=== PATIENT | female | born 1955 | race Caucasian/White ===

== ENCOUNTER 2016-08-20 17:52 | Emergency (ER) | payer MEDICARE, OTHER ==
[~2016-08-20] VITALS: Ht 172.7 cm; Wt 52.6 kg
[~2016-08-20 17:52] MED LIST: CIPRO500 MG PO; DILAUDID1 MG/ML EPIDURAL; TYLENOL325 MG PO
[2016-08-20] MEDS ORDERED: OMEPRAZOLE20 MG PO (19:35)
== END 2016-08-20 19:51 | disposition home or self-care (01) ==
LOC: ED 17:52
DX: R10.12 Left upper quadrant pain (principal); Z91.030 Bee allergy status; Z88.0 Allergy status to penicillin; Z79.899 Other long term (current) drug therapy
CPT/HCPCS: 71010; 80053; 81001; 83690; 85025; 96374; 99283; J1170

== ENCOUNTER 2016-09-23 22:12 | Emergency (ER) | payer MEDICARE, OTHER ==
[~2016-09-23] VITALS: Ht 172.7 cm; Wt 54.0 kg
[~2016-09-23 22:12] MED LIST changes: +OMEPRAZOLE20 MG PO
[2016-09-23] MEDS ORDERED: HYDROMORPHONE HC8 MG PO (22:23)
[2016-09-23] MEDS ORDERED: HYDROCHLOROTHIA25 MG PO (22:24)
[2016-09-23] MEDS ORDERED: DILAUDID1 MG/ML PO (22:27)
[2016-09-23] MEDS ORDERED: CYCLOBENZAPRINE10 MG PO (22:28)
[2016-09-23] MEDS ORDERED: ZOFRAN ODT4 MG PO (23:04)
== END 2016-09-23 23:20 | disposition home or self-care (01) ==
LOC: ED 22:12
DX: R10.12 Left upper quadrant pain (principal); R11.0 Nausea; F17.200 Nicotine dependence, unspecified, uncomplicated; Z85.07 Personal history of malignant neoplasm of pancreas; Z88.0 Allergy status to penicillin; Z91.038 Other insect allergy status; Z79.899 Other long term (current) drug therapy
CPT/HCPCS: 99283

== ENCOUNTER 2016-09-27 02:51 | Emergency (ER) | payer MEDICARE, OTHER ==
[~2016-09-27] VITALS: Ht 172.7 cm; Wt 54.0 kg
[~2016-09-27 02:51] MED LIST changes: +CYCLOBENZAPRINE10 MG PO; +DILAUDID1 MG/ML PO; +HYDROCHLOROTHIA25 MG PO; +HYDROMORPHONE HC8 MG PO; +ZOFRAN ODT4 MG PO
[2016-09-27] MEDS ORDERED: HYDROCODON-ACE1 EA10 PO (03:05)
[2016-09-27] MEDS ORDERED: DILAUDID2 MG PO (04:13)
--- NOTE | 2016-09-27 13:56 | EKG ---
[facility] [address] [facility] [place], [place] [address] Signed Normal sinus rhythm Biatrial enlargement Right axis deviation Incomplete right bundle branch block Possible Anteroseptal infarct , age undetermined Abnormal ECG No previous ECGs available Confirmed by DAVIS HAHN MD ([id number]) on 09/27/2016 1:55:49 PM Electronically Signed By: DAVIS HAHN MD 09/27/16 1356 PATIENT NAME: ARTSAILAJALEFTY Electrocardiogram DATE OF : 51 PHYSICIAN: DAVIS HAHN MD REPORT #: [id number] REPORT IS CONFIDENTIAL AND NOT TO BE RELEASED WITHOUT AUTHORIZATION
== END 2016-09-27 04:57 | disposition home or self-care (01) ==
LOC: ED 02:51
DX: C25.9 Malignant neoplasm of pancreas, unspecified (principal); F17.200 Nicotine dependence, unspecified, uncomplicated; Z88.0 Allergy status to penicillin; Z91.030 Bee allergy status; Z79.899 Other long term (current) drug therapy; Z79.891 Long term (current) use of opiate analgesic
CPT/HCPCS: 93005; 93010; 96361; 96374; 96375; 99283; J1170; J2405; J7030

== ENCOUNTER 2018-02-07 17:02 | Emergency (ER) | payer MEDICARE, OTHER ==
[~2018-02-07] VITALS: Ht 172.7 cm; Wt 54.0 kg
[~2018-02-07 17:02] MED LIST changes: +DILAUDID2 MG PO; +HYDROCODON-ACE1 EA10 PO; +PREDNISONE20 MG PO
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
--- NOTE | 2018-02-09 07:51 | EKG ---
[facility] [address] [place] [address] Signed Wide QRS tachycardia Right superior axis deviation Nonspecific intraventricular block Inferior infarct , age undetermined Abnormal ECG When compared with ECG of 27-SEP-2016 02:57, Wide QRS tachycardia has replaced Sinus rhythm Vent. rate has increased BY 60 BPM Confirmed by WHIT MICHAELS MD ([id number]) on 02/09/2018 7:51:22 AM Electronically Signed By: WHIT MICHAELS MD 02/09/18 0751 PATIENT NAME: LEFTY SMITH JOANNE Electrocardiogram DATE OF : 51 PHYSICIAN: WHIT MICHAELS MD REPORT #: [id number] REPORT IS CONFIDENTIAL AND NOT TO BE RELEASED WITHOUT AUTHORIZATION
== END 2018-02-07 21:17 | disposition home or self-care (01) ==
LOC: ED 17:02
DX: J20.9 Acute bronchitis, unspecified (principal); Z86.19 Personal history of other infectious and parasitic diseases; Z87.891 Personal history of nicotine dependence; Z91.038 Other insect allergy status; Z88.0 Allergy status to penicillin; Z79.899 Other long term (current) drug therapy
CPT/HCPCS: 71046; 80053; 85025; 87502; 93005; 93010; 94640; 96360; 99284-25; J7030

== ENCOUNTER 2018-08-04 17:28 | Emergency (ER) | payer MEDICARE, OTHER ==
[~2018-08-04] VITALS: Ht 172.7 cm; Wt 54.0 kg
--- OUTSIDE RECORDS SUMMARY | 2018-08-04 17:30 | XMS ---
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 DO NOT GIVE NARCOTICS UNTIL READING THE FOLLOWING. PATIENT HAS DILAUDID IMPLANTED PAIN PUMP AND ORAL DILAUDID FOR CHRONIC BACK/NECK PAIN THROUGH [facility] [phone] . THEY ARE NOT GIVING PATIENTS NARCOTICS [...] SHE WAS SEEN BY MENTAL HEALTH . E.Quang VISIT COUNT (12 MO.) 4 [facility] TOTAL 4 NOTE: Visits indicate total known visits. ED/UCC VISIT TRACKING (12 MO.) 08/04/2018 17:29 [facility] TYPE: Emergency COMPLAINT: - MEDICAL CLEARANCE 02/07/2018 17:02 [facility] [place] TYPE: Emergency COMPLAINT: - FLU SYMPTOMS/VOMITING DIAGNOSES: - Other insect allergy status - Cough - Acute bronchitis, unspecified - Personal history of nicotine dependence - Allergy status to penicillin - Personal history of other infectious and parasitic diseases - Other intermediate teacher (current) drug therapy 12/22/2017 16:20 [facility] [place] TYPE: Emergency COMPLAINT: - BILAT HIP PAIN/INJURY DIAGNOSES: - Allergy status to penicillin - Nicotine dependence, unspecified, uncomplicated - intermodal customer service (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
== END 2018-08-04 23:14 | disposition short-term general hospital (02) ==
LOC: ED 17:28
DX: R10.13 Epigastric pain (principal); Z00.8 Encounter for other general examination; Z87.891 Personal history of nicotine dependence; Z91.030 Bee allergy status; Z88.0 Allergy status to penicillin
CPT/HCPCS: 80053; 80176; 81001; 83690; 84443; 84703; 85025; 99284; G0480

== ENCOUNTER 2018-10-07 16:11 | Observation (INO) | payer MEDICARE, OTHER ==
[~2018-10-07] VITALS: Ht 172.7 cm; Wt 55.5 kg
--- NOTE | 2018-10-07 20:34 | NUR ---
PT ARRIVED TO THE FLOOR VIA STRETCHER AND WALKED TO THE BED SBA. RR IS EVEN AND NONLABORED. VS TAKEN AND ENTERED. ASSISTED PT TO THE RESTROOM AND BACK TO BED. CALL LIGHT IS CLOSE, STARTING ADMISSION PROCESS.
--- NOTE | 2018-10-07 21:15 | NUR ---
ASSESSMENT DONE. pt REPORTING 8/10 PAIN "HEADACHE" NO REQUESTS AT THIS TIME. RAFAEL KOENIG IN ROOM FINISHING ADMIT PAPERWORK.
--- NOTE | 2018-10-07 22:30 | NUR ---
IN ROOM TO GIVE MEDS (SEE MAR). pt REPORTED CHEST PAIN. "IT FEELS LIKE SOMETHING IS SITTING ON MY CHEST" HEADACHE STILL PRESENT. NO OTHER PAIN REPORTED. VITALS TAKEN. CHARGE NURSE NOTIFED. pt REPORTED NEW PAIN IN JAW. CHARGE NURSE UPDATED. RT IN ROOM TO DO EKG. LAB INTO DRAW BLOOD. pt REPORTED THAT SYMPTOMS WERE NOT GETTING WORSE. EDUCATED TO CALL IF ANYTHING CHANGED. PLEASANT. CALL LIGHT WITHIN REACH.
--- NOTE | 2018-10-07 22:40 | NUR ---
SPOKE WITH DR PINA ABOUT PT'S CHEST PAIN, TORBC.
--- NOTE | 2018-10-07 22:58 | EKG ---
[facility] [address] [facility] [place], [place] [address] Signed Normal sinus rhythm Possible Left atrial enlargement Right superior axis deviation Incomplete right bundle branch block Cannot rule out Anteroseptal infarct (cited on or before 27-SEP-2016) Abnormal ECG When compared with ECG of 07-OCT-2018 16:17, (Unconfirmed) T wave amplitude has decreased in Anterior leads Confirmed by WOOD PINA DO ([id number]) on 10/07/2018 10:58:46 PM Electronically Signed By: WOOD PINA DO 10/07/18 2258 PATIENT NAME: LEFTY SMITH Electrocardiogram DATE OF : 51 PHYSICIAN: WOOD PINA DO REPORT #: [id number] REPORT IS CONFIDENTIAL AND NOT TO BE RELEASED WITHOUT AUTHORIZATION
--- NOTE | 2018-10-07 23:00 | NUR ---
ROUNDED ON pt. REPORTED PAIN DECREASED, "I JUST BARELY FEEL A LITTLE PRESSURE IN MY CHEST" WARM BLANKET PROVIDED. NO OTHER REQUESTS AT THIS TIME. CALL LIGHT WITHIN REACH.
--- NOTE | 2018-10-07 23:00 | EKG ---
[facility] [address] [facility] [place] [address] Signed Normal sinus rhythm Biatrial enlargement Right superior axis deviation Pulmonary disease pattern Septal infarct , age undetermined Abnormal ECG When compared with ECG of 07-FEB-2018 17:29, Sinus rhythm has replaced Wide QRS tachycardia Vent. rate has decreased BY 50 BPM Confirmed by WOOD PINA DO ([id number]) on 10/07/2018 11:00:11 PM Electronically Signed By: WOOD PINA DO 10/07/18 2300 PATIENT NAME: LEFTY SMITH Electrocardiogram DATE OF : 51 PHYSICIAN: WOOD PINA DO REPORT #: [id number] REPORT IS CONFIDENTIAL AND NOT TO BE RELEASED WITHOUT AUTHORIZATION
--- NOTE | 2018-10-08 01:24 | NUR ---
ROUNDED ON pt. RESTING WITH EYES CLOSED, RESPIRATIONS REGULAR AND UNLABORED. CALL LIGHT WITHIN REACH TELE #5 HR 73, SR.
--- NOTE | 2018-10-08 02:30 | NUR ---
ASSESSMENT DONE. VITALS AND I&O RECORDED. pt UP TO VOID. CLEAN CATCH URINE SAMPLE SENT TO LAB. pt REQUESTED PAIN MEDS, GIVEN (SEE MAR). 08/18 HEADACHE. DENIES THE "PRESSURE" FEELING IN CHEST. CALL LIGHT WITHIN REACH.
--- NOTE | 2018-10-08 03:57 | NUR ---
ROUNDED ON pt. RESTING WITH EYES CLOSED, RESPIRATIONS REGULAR AND UNLABORED. CALL LIGHT WITHIN REACH.
[2018-10-08] MEDS ORDERED: QUETIAPINE FUM100 MG PO (05:20)
[2018-10-08] MEDS ORDERED: LATUDA120 MG PO (05:21)
[2018-10-08] MEDS ORDERED: BENADRYL25 MG PO (05:26)
[2018-10-08] MEDS ORDERED: TYLENOL325 MG PO (05:27)
[2018-10-08] MEDS ORDERED: LEXAPRO10 MG PO (05:28)
[2018-10-08] MEDS ORDERED: CATAPRES0.1 MG PO (05:32)
--- NOTE | 2018-10-08 05:43 | NUR ---
ROUNDED ON pt. VITALS AND I&O RECORDED. OFFERED MENU. LAB INTO DRAW. pt REPORTED 7/10 PAIN, PRN GIVEN (SEE MAR). CALL LIGHT WITHIN REACH.
--- NOTE | 2018-10-08 05:46 | NUR ---
pt DID NOT SLEEP MUCH. HEADACHE PAIN RATING DOWN TO 7/10. PRN PAIN MEDS X4. TELE 5 SR. ONE EPISODE OF CHEST PAIN, EKG AND LABS. REPORTS PAIN IS GONE. SBA. IV SL. ALERT AND ORIENTED.
--- NOTE | 2018-10-08 07:33 | NUR ---
RECIEVED BEDSIDE REPORT FROM RAFAEL MUÑIZ. PT IS IN BED, AWAKE. PT STATES SHE SHILL HAS PAIN ON THE RIGHT SIDE OF HER HEAD. NO NAUSEA. VISION IS IMPROVED. BLOOD PRESSURE IS WITHIN NORMAL.
--- NOTE | 2018-10-08 09:00 | NUR ---
SPOKE WITH PATIENT IN ROOM. PATIENT LIVES IN HOUSE WITH STAIRS WITH ROOMMATES. SHE HAS A FIRST FLOOR ROOM. SHE HAS NO ISSUES WITH STAIRS OR AMBULATION. SHE HAS PCP IN [place], SHE WOULD LIKE TO HAVE LOCAL PCP. SHE STATES SHE HAS SIGNED A KALLIE AND REQUEST FOR PCP AT [facility] 2 MONTHS AGO, HASN'T HEARD BACK. SHE WOULD LIKE HELP FROM CASE MANAGEMENT AFTER DISCARGE IN FINDING ONE. PATIENT IS UNDER PAIN CONTRACT WITH DR QURESHI OF [facility]. SHE STATES SHE CAN DRIVE, BUT DOES NOT OWN A CAR. SHE STATES SHE USES [employer]. 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 QUESTIONS ANSWERED. PATIENT FEELS SAFE TO RETURN HOME AT DISCHARGE.
--- NOTE | 2018-10-08 09:10 | NUR ---
HELD AM LISINOPRIL PER VERBAL ORDER FROM DR PINA. PT STATES HER HEADACHE IS STILL THERE, BUT SHE IS FEELING BETTER. SHE IS ANXIOUS TO GO HOME.
[2018-10-08] MEDS ORDERED: EPIN0.3P INJ (09:50)
--- NOTE | 2018-10-08 09:51 | NUR ---
MEDICATION RECONCILIATION COMPLETED.
== END 2018-10-08 11:30 | disposition home or self-care (01) ==
LOC: ED 16:11 → MS 19:52
PROVIDERS: ADMIT Student in an Organized Health Care Education/Training Program
DX: I16.1 Hypertensive emergency (principal); I10 Essential (primary) hypertension; G43.809 Other migraine, not intractable, without status migrainosus; F39 Unspecified mood [affective] disorder; M54.2 Cervicalgia; G89.29 Other chronic pain; S12.9XXS Fracture of neck, unspecified, sequela; Z79.899 Other long term (current) drug therapy; Z88.0 Allergy status to penicillin; Z79.891 Long term (current) use of opiate analgesic
CPT/HCPCS: 36415; 62270; 70450; 80048; 80053; 80061; 81001; 82945; 83036; 84157; 84484; 85025; 85032; 89051; 93005; 93010; 96375; 96376; 99285-25; G0378; J0780; J1200; J1885; J2405; J3010

== ENCOUNTER 2018-12-09 14:35 | Emergency (ER) | payer MEDICARE, OTHER ==
[~2018-12-09] VITALS: Ht 172.7 cm; Wt 65.9 kg
[~2018-12-09 14:35] MED LIST changes: +BENADRYL25 MG PO; +CATAPRES0.1 MG PO; +EPIN0.3P INJ; +LATUDA120 MG PO; +LEXAPRO10 MG PO; +QUETIAPINE FUM100 MG PO
--- NOTE | 2018-12-11 06:17 | EKG ---
[facility] [address] [facility] [place] [address] Signed Normal sinus rhythm Incomplete right bundle branch block Left posterior fascicular block Possible Inferior infarct , age undetermined Abnormal ECG When compared with ECG of 07-OCT-2018 22:44, Left posterior fascicular block is now present Minimal criteria for Anteroseptal infarct are no longer present Borderline criteria for Inferior infarct are now present Confirmed by DAVIS HAHN MD ([id number]) on 12/11/2018 6:17:04 AM Electronically Signed By: DAVIS HAHN MD 12/11/18 0617 PATIENT NAME: LEFTY SMITH Electrocardiogram DATE OF : 51 PHYSICIAN: DAVIS HAHN MD REPORT #: [id number] REPORT IS CONFIDENTIAL AND NOT TO BE RELEASED WITHOUT AUTHORIZATION
== END 2018-12-09 16:54 | disposition short-term general hospital (02) ==
LOC: ED 14:35
DX: I63.9 Cerebral infarction, unspecified (principal); F17.200 Nicotine dependence, unspecified, uncomplicated; Z88.0 Allergy status to penicillin; Z91.030 Bee allergy status
CPT/HCPCS: 70450; 71045; 80053; 84484; 85025; 85610; 85730; 93005; 93010; 96374; 96375; 99285-25; J2997; J3010; Q3014

== ENCOUNTER 2019-01-22 14:10 | Emergency (ER) | payer MEDICARE, OTHER ==
[~2019-01-22] VITALS: Ht 172.7 cm; Wt 65.9 kg
--- OUTSIDE RECORDS SUMMARY | ~2019-01-22 | XMS | Encounter Summary ---
Demographics + + + | Address | [address] | | | [place] [address] | + + + | Home Phone | | + + + | Preferred Language | Unknown | + + + | Marital Status | | + + + | Judaism Affiliation | Unknown | + + + | Race | Unknown | + + + | Ethnic Group | Unknown | + + + Author + + + | Author | [facility] | | | and [place] | + + + | Organization | [facility] | | | and [place] | + + + | Address | Unknown | + + + | Phone | Unavailable | + + + Support + + +---------+ + | Name | Relationship | Address | Phone | + + +---------+ + | [facility] | ECON | Unknown | | | Residential | | | | | Treatment Home | | | | + + +---------+ + Care Team Providers + +------+ + | Care Change Control Specialist Name | Role | Phone | + +------+ + | No, Physician | PCP | Unavailable | + +------+ + Encounter Details +--------+ + + + + | Date | Type | Department | Care Team | Description | +--------+ + + + + | 03/02/ | Hospital | [facility] | Conversion | | | 2019 | Encounter | MEDICAL CENTER | Transaction, | | | | | OUTPATIENT | Provider Unknown | | | | | [address] | [phone] | | | | | [address] | | | | | | [place] | | | | | | [address] | | | | | | [phone] | | | +--------+ + + + + Social History + +-------+ +--------+------+ | Tobacco Use | Types | Packs/Day | Years | Date | | | | | Used | | + +-------+ +--------+------+ | Unknown If Ever | | | | | | Smoked | | | | | + +-------+ +--------+------+ + + + | Sex Assigned at | Date Recorded | | | | + + + | Not on file | | + + + + + + + | Job Start Date | Occupation | Industry | + + + + | Not on file | Not on file | Not on file | + + + + + + + + | Travel History | Travel Start | Travel End | + + + + + + | No recent travel history available. | + + documented as of this encounter Last Filed Vital Signs + + + + + | Vital Sign | Reading | Time Taken | Comments | + + + + + | Blood Pressure | 143/86 | 03/02/2018 11:58 AM | | | | | PST | | + + + + + | Pulse | 68 | 03/02/2018 11:58 AM | | | | | PST | | + + + + + | Temperature | 36.1 C (97 F) | 03/02/2018 11:58 AM | | | | | PST | | + + + + + | Respiratory Rate | 16 | 03/02/2018 11:58 AM | | | | | PST | | + + + + + | Oxygen Saturation | - | - | | + + + + + | Inhaled Oxygen | - | - | | | Concentration | | | | + + + + + | Weight | - | - | | + + + + + | Height | - | - | | + + + + + | Body Mass Index | - | - | | + + + + + documented in this encounter Medications at Time of Discharge + + + +---------+ + + | Medication | Sig | Dispensed | Refills | Start | End Date | | | | | | Date | | + + + +---------+ + + | acetaminophen | Take 325 mg by mouth | | 0 | 09/19/19 | | | (TYLENOL) 325 mg | every 6 (six) hours | | | 16 | | | tablet | as needed for Pain. | | | | | | | Sleep aid | | | | | + + + +---------+ + + | ibuprofen | Take 1 tablet by | | 0 | 01/20/20 | | | (ADVIL,MOTRIN) 600 | mouth 3 times daily | | | 18 | | | MG tablet | as needed for Pain. | | | | | + + + +---------+ + + | cyclobenzaprine | Take 10 mg by mouth | | 0 | 09/02/19 | | | (FLEXERIL) 10 mg | 3 (three) times | | | 17 | 9 | | tablet | daily as needed for | | | | | | | Muscle spasms. | | | | | + + + +---------+ + + | | | | 0 | 09/18/19 | | | HYDROcodone-acetamin | | | | 17 | 9 | | ophen (NORCO) 5-325 | | | | | | | mg per tablet | | | | | | + + + +---------+ + + | HYDROmorphone | | | 0 | 09/28/19 | | | (DILAUDID) 2 mg | | | | 17 | 9 | | tablet | | | | | | + + + +---------+ + + documented as of this encounter Plan of Treatment Not on filedocumented as of this encounter Visit Diagnoses Not on filedocumented in this encounter"
--- OUTSIDE RECORDS SUMMARY | ~2019-01-22 | XMS | Encounter Summary ---
Demographics + + + | Address | [address] | | | [place] [address] | + + + | Home Phone | | + + + | Preferred Language | Unknown | + + + | Marital Status | | + + + | Gnosticist Affiliation | Unknown | + + + [...] Team Providers + +------+ + | Care Progressive Care Manager Name | Role | Phone | + +------+ + | Ben Tirado MD | PCP | | + +------+ + Encounter Details +--------+ + + + + | Date | Type | Department | Care Team | Description | +--------+ + + + + | 10/29/ | Orders Only | [facility] | Conversion | | | 2017 | | CONVERSION [address] | Transaction, | | | | | [address] | Provider Unknown | | | | | [place], [place] | [phone] | | | | | [phone] | | | | | | [phone] | | | +--------+ + + + + Social History + +-------+ +--------+------+ | Tobacco Use | Types | Packs/Day | Years | Date | | | | | Used | | + +-------+ +--------+------+ | Never Assessed | | | | | + +-------+ [...]
--- OUTSIDE RECORDS SUMMARY | ~2019-01-22 | XMS | Encounter Summary ---
Demographics + + + | Address | [address] | | | [place] [address] | + + + | Home Phone | | + + + | Preferred Language | Unknown | + + + | Marital Status | | + + + | Church Affiliation | Unknown | + + + | Race | Unknown | + + + | Ethnic Group | Unknown | + + + Author + + + | Author | [facility] | | | and [place] | + + + | Organization | [facility] | | | and [...] Team Providers + +------+ + | Care Manager Etl Name | Role | Phone | + +------+ + | Ben Tirado MD | PCP | | + +------+ + Encounter Details +--------+ + + + + | Date | Type | Department | Care Team | Description | +--------+ + + + + | 08/10/ | Orders Only | [facility] | Conversion | | | 2016 | | CONVERSION [address] | Transaction, | | | | | [address] | Provider Unknown | | | | | [place], [place] | [phone] | | | | | [address] | | | | | | [phone] | | | +--------+ + + + [...]
--- OUTSIDE RECORDS SUMMARY | ~2019-01-22 | XMS | Encounter Summary ---
Demographics + + + | Address | [address] | | | [place] [address] | + + + | Home Phone | | + + + | Preferred Language | Unknown | + + + | Marital Status | | + + + | Mormonism Affiliation | Unknown | + + + | Race | Unknown | + + + | Ethnic Group | Unknown | + + + Author + + + | Author | [facility] | | | and [place] | + + + | Organization | [facility] | | [...] Team Providers + +------+ + | Care Contract Administration Coordinator Name | Role | Phone | + +------+ + PCP | Unavailable | + +------+ + Encounter Details +--------+ + + + + | Date | Type | Department | Care Team | Description | +--------+ + + + + | 02/11/ | Hospital | [facility] | Conversion | | | 2017 | Encounter | MEDICAL CENTER | Transaction, | | | | | OUTPATIENT | Provider Unknown | | | | | [address] | [phone] | | | | | [address] | | | | | | [place], [place] | | | | | | [address] | | | | | | [phone] | | | +--------+ + + + [...]
--- OUTSIDE RECORDS SUMMARY | ~2019-01-22 | XMS | Encounter Summary ---
Demographics + + + | Address | [address] | | | [place] [address] | + + + | Home Phone | | + + + | Preferred Language | Unknown | + + + | Marital Status | | + + + | Scientologist Affiliation | Unknown | + + + | Race | Unknown | + + + | Ethnic Group | Unknown | + + + Author + + + | Author | [facility] | | | and [place] | + + + | Organization | [facility] | | [...] Team Providers + +------+ + | Care Black Ash Burner Operator Name | Role | Phone | + +------+ + PCP | Unavailable | + +------+ + Encounter Details +--------+ + + + + | Date | Type | Department | Care Team | Description | +--------+ + + + + | 05/27/ | Hospital | [facility] | Conversion | Back pain, | | 2017 | Encounter | [address] | Transaction, | unspecified back | | | | [address] | Provider Unknown | location, | | | | [place], [place] | [phone] | unspecified back | | | | [phone] | (Fax) | pain laterality, | | | | | | unspecified | | | | | | chronicity | +--------+ + + + + Social [...] | + +--------+ + + + | CT THORACIC SPINE WO | Routin | 05/26/2016 | | Results for this | | CONTRAST | e | 9:19 AM | | procedure are in the | | | | PDT | | results section. | + +--------+ + + + documented in this encounter Results CT Thoracic Spine wo Contrast (05/26/2016 9:19 AM PDT) + + | Specimen | + + | | + + + + + | Narrative | Performed At | + + + | This is a non-reportable procedure without a radiologist report and | | | is used for image storage only | | + + + + + | Procedure Note | + + | Hemant Medley - 09/23/2018 5:08 AM PDT This is a non-reportable procedure | | without a radiologist report and isused for image storage only | + + documented in this encounter Visit Diagnoses + + | Diagnosis | + + | Back pain, unspecified back location, unspecified back pain laterality, unspecified | | chronicity | + + documented in this encounter"
--- OUTSIDE RECORDS SUMMARY | ~2019-01-22 | XMS | Encounter Summary ---
Demographics + + + | Address | [address] | | | [place] [address] | + + + | Home Phone | | + + + | Preferred Language | Unknown | + + + | Marital Status | | + + + | Advent Affiliation | Unknown | + + + | Race | Unknown | + + + | Ethnic Group | Unknown | + + + Author + + + | Author | [facility] | | | and [place] | + + + | Organization | [facility] | | | [...] Team Providers + +------+ + | Care Delivery Coordinator Name | Role | Phone | + +------+ + | No, Physician | PCP | Unavailable | + +------+ + Encounter Details +--------+ + + + + | Date | Type | Department | Care Team | Description | +--------+ + + + + | 09/01/ | Hospital | [facility] | Conversion | | | 2018 | Encounter | MEDICAL CENTER | Transaction, | | | | | OUTPATIENT | Provider Unknown | | | | | [address] | [phone] | | | | | [address] | | | | | | [place] | | | | | | [address] | | | | | | [phone] | | | +--------+ + + + [...] Note by Syeda Beverly RN at 09/01/17 2822 Author: Syeda Beverly RN Service: (none) Author Type: Registered Nurse Filed: 09/04/17 0957 Date of Service: 09/01/172358 Status: Signed Bellows Charger Assembler: Syeda Beverly RN (Registered Nurse) Received a phone call from [facility] reporting symptoms of hives the size [...]
--- OUTSIDE RECORDS SUMMARY | ~2019-01-22 | XMS | Clinical Summary ---
Demographics + + + | Address | [address] | | | [place] [address] | + + + | Home Phone | | + + + | Preferred Language | Unknown | + + + | Marital Status | | + + + | Baptist Affiliation | Unknown | + + + | Race | Unknown | + + + | Ethnic Group | Unknown | + + + Author + + + | Author | [facility] | | | and [place] | + + + | Organization | [facility] | | | [...] Team Providers + +------+ + | Care Circle Cutting Saw Operator Name | Role | Phone | + +------+ + | Ben Tirado MD | PCP | | + +------+ + Allergies + + + + + + | Active Allergy | Reactions | Severity | Noted | Comments | | | | | Date | | + + + + + + | Bee Venom | Anaphylaxis | High | 09/03/19 | | | | | | 19 | | + + + + + + | Codeine | Other (See Comments) | Medium | 09/19/19 | sensativity | | | | | 16 | | + + + + + + | Penicillins | Anaphylaxis | High | 09/19/19 | | | | | | 16 | | + + + + + + Medications + + + +---------+------+------+-------+ | Medication | Sig | Dispensed | Refills | Star | End | Statu | | | | | | t | Date | s | | | | | | Date | | | + + + +---------+------+------+-------+ | acetaminophen | Take 325 mg by mouth | | 0 | 08/1 | | Activ | | (TYLENOL) 325 mg | every 6 (six) hours | | | 0/20 | | e | | tablet | as needed for Pain. | | | 16 | | | | | Sleep aid | | | | | | + + + +---------+------+------+-------+ | albuterol 90 | Inhale 2 puffs into | | 0 | | | Activ | | mcg/puff inhaler | the lungs 2 times | | | | | e | | | daily. | | | | | | + + + +---------+------+------+-------+ | EPINEPHrine | Inject 0.3 mLs into | | 0 | 07/2 | | Activ | | auto-injector 0.3 | the muscle as needed | | | 6/20 | | e | | mg/0.3 mL injection | for Anaphylaxis. | | | 19 | | | + + + +---------+------+------+-------+ | LATUDA 120 MG | Take 1 tablet by | | 0 | 10/1 | | Activ | | tablet | mouth Daily. | | | 8/20 | | e | | | | | | 19 | | | + + + +---------+------+------+-------+ | escitalopram | Take 10 mg by mouth | | 0 | 10/1 | | Activ | | (LEXAPRO) 10 mg | Daily. | | | 8/20 | | e | | tablet | | | | 19 | | | + + + +---------+------+------+-------+ | ibuprofen | Take 1 tablet by | | 0 | 12/1 | | Activ | | (ADVIL,MOTRIN) 600 | mouth 3 times daily | | | 1/20 | | e | | MG tablet | as needed for Pain. | | | 18 | | | + + + +---------+------+------+-------+ | QUEtiapine | Take 2 tablets by | | 0 | 10/1 | | Activ | | (SEROQUEL) 100 mg | mouth nightly. | | | 4/20 | | e | | tablet | | | | 19 | | | + + + +---------+------+------+-------+ | propranolol | Take 1 tablet by | 60 | 0 | 11/0 | | Activ | | (INDERAL) 20 MG | mouth 2 times daily. | tablet | | 2/20 | | e | | tablet | | | | 19 | | | + + + +---------+------+------+-------+ | atorvaSTATin | Take 0.5 tablets by | 30 | 0 | 11/0 | | Activ | | (LIPITOR) 80 MG | mouth Daily. | tablet | | 2/20 | | e | | tablet | | | | 19 | | | + + + +---------+------+------+-------+ Active Problems + + + | Problem | Noted Date | + + + | Mixed hyperlipidemia | 12/11/2018 | + + + | Essential hypertension | 12/09/2018 | + + + | Post-traumatic osteoarthritis of right knee | 10/01/2018 | + + + | Sprain of anterior cruciate ligament of right knee | 10/01/2018 | + + + | Chronic neck pain | 09/16/2018 | + + + | Chronic hepatitis C without hepatic coma | 09/03/2018 | + + + | H/O total hysterectomy | 09/03/2018 | + + + | Tobacco abuse | 09/03/2018 | + + + | Chronic pain syndrome | 10/12/2015 | + + + | Chronic postoperative pain | 10/12/2015 | + + + | History of fusion of cervical spine | 10/12/2015 | + + + | History of fusion of cervical spine | 10/12/2015 | + + + + + | Overview: Last Assessment & Plan: | | See Discussion under chronic pain | + + + + + | Chronic pain syndrome | 10/12/2015 | + + + + + | Overview: Last Assessment & Plan: This patient has a | | intrathecal pain pump for chronic pain. She is currently on | | hydromorphone 9 mg per mL and bupivacaine at 3 mg per mL. She is | | on a continuous mode at 1.2017 mg per day of hydromorphone with | | 0.4006 mg per day bupivacaine. She has had increased pain and is | | here to request an increase in her intrathecal pain pump. She is | | also for additional refill of her hydromorphone. Her last | | prescription was filled and September 2015 and lasted for 3-4 | | months.Today we increased her settings by 13 percent. We did | | increase her to 1.3534 mg per day of her hydromorphone and 0.4511 | | mg per day for bupivacaine. We will refer her hydromorphone one | | more time. I will put her on a list for her to see Dr. Sherwood. I | | did tell her that I will not fill her hydromorphone anymore.Last | | Assessment & Plan: This patient has a intrathecal pain pump for | | chronic pain. She is currently on hydromorphone 9 mg per mL and | | bupivacaine at 3 mg per mL. She is on a continuous mode at 1.2017 | | mg per day of hydromorphone with 0.4006 mg per day bupivacaine. | | She has had increased pain and is here to request an increase in | | her intrathecal pain pump. She is also for additional refill of | | her hydromorphone. Her last prescription was filled and September | | 2015 and lasted for 3-4 months.Today we increased her settings by | | 13 percent. We did increase her to 1.3534 mg per day of her | | hydromorphone and 0.4511 mg per day for bupivacaine. We will | | refer her hydromorphone one more time. I will put her on a list | | for her to see Dr. Sherwood. I did tell her that I will not fill | | her hydromorphone anymore. | + + + + + | Chronic postoperative pain | 10/12/2015 | + + + + + | Overview: Last Assessment & Plan: | | See Discussion under chronic pain | + + Resolved Problems + + + + | Problem | Noted | Resolved | | | Date | Date | + + + + | Acute CVA (cerebrovascular accident) | 12/10/19 | | | | 19 | 9 | + + + + Encounters +--------+ + + + + | Date | Type | Specialty | Care Team | Description | +--------+ + + + + | 12/09/ | Hospital | Internal Medicine | Dale Panda | History of fusion of | | 2019 - | Encounter | | MD Amparo | cervical spine | | | | | | (Primary Dx); Acute | | 12/11/ | | | | CVA (cerebrovascular | | 2019 | | | | accident) (HCC); | | | | | | Chronic hepatitis C | | | | | | without hepatic coma | | | | | | (HCC); Chronic pain | | | | | | syndrome; Essential | | | | | | hypertension; | | | | | | Tobacco abuse; | | | | | | Chronic neck pain; | | | | | | S/P admn tPA in diff | | | | | | fac w/n last 24 hr | | | | | | bef adm to crnt fac; | | | | | | Diplopia; History | | | | | | of fusion of | | | | | | cervical spine; | | | | | | Post-traumatic | | | | | | osteoarthritis of | | | | | | right knee | +--------+ + + + + from Last 3 Months Immunizations + + + + | Name | Administration Dates | Next Due | + + + + | INFLUENZA PF 63 Y OR | 09/27/2018 | | | >,TRIVALENT (FLUAD) | | | + + + + | INFLUENZA PF | 10/16/2015 | | | QUAD(PED/ADOL/ADULT) | | | | ,PSKT or VIAL | | | + + + + | INFLUENZA TRIV | 03/26/2017 | | | W/PRES(PED/ADOL/ADUL | | | | T),MULTIDOSE | | | + + + + | INFLUENZA, | 09/27/2018 | | | UNSPECIFIED | | | | FORMULATION | | | + + + + | PNEUMOCOCCAL | 09/02/2018 | | | CONJUGATE 13-VALENT | | | | (PCV13) | | | + + + + Family History + + +------+ + | Medical History | Relation | Name | Comments | + + +------+ + | Heart disease | Father | 76 | | + + +------+ + | Hypertension | Father | 76 | | + + +------+ + | Heart disease | Mother | 90 | | + + +------+ + | Hypertension | Mother | 90 | | + + +------+ + + +------+ + + | Relation | Name | Status | Comments | + +------+ + + | Father | 76 | | | + +------+ + + | Father | 76 | | | + +------+ + + | Mother | 90 | | | + +------+ + + | Mother | 90 | | | + +------+ + + Social History + +-------+ +--------+------+ | Tobacco Use | Types | Packs/Day | Years | Date | | | | | Used | | + +-------+ +--------+------+ | Current Every Day | | | | | | Smoker | | | | | + +-------+ +--------+------+ + +---+---+---+ | Smokeless Tobacco: | | | | | Never Used | | | | + +---+---+---+ + + + | Sex Assigned at [...] recent travel history available. | + + Last Filed Vital Signs + + + + + | Vital Sign | Reading | Time Taken | Comments | + + + + + | Blood Pressure | 128/92 | 12/11/2018 11:00 AM | | | | | PDT | | + + + + + | Pulse | 64 | 12/11/2018 11:00 AM | | | | | PDT | | + + + + + | Temperature | 36.8 C (98.2 F) | 12/11/2018 12:00 PM | | | | | PDT | | + + + + + | Respiratory Rate | 18 | 12/11/2018 12:00 PM | | | | | PDT | | + + + + + | Oxygen Saturation | 96% | 12/11/2018 11:00 AM | | | | | PDT | | + + + + + | Inhaled Oxygen | - | - | | | Concentration | | | | + + + + + | Weight | 63 kg (138 lb 14.2 | 12/10/2018 8:00 PM | | | | oz) | PDT | | + + + + + | Height | 172.7 cm (5' 8") | 12/09/2018 5:15 PM | | | | | PDT | | + + + + + | Body Mass Index | 21.12 | 12/09/2018 5:15 PM | | | | | PDT | | + + + + + Plan of Treatment + + + + + | Health Maintenance | Due Date | Last Done | Comments | + + + + + | Vaccine: | | | | | Dtap/Tdap/Td (1 - | 3 | | | | Tdap) | | | | + + + + + | Colorectal Cancer | | | | | Screening | 4 | | | | (Colonoscopy) | | | | + + + + + | Vaccine: Zoster (1 | | | | | of 2) | 4 | | | + + + + + | Breast Cancer | | | | | Screening | 9 | | | + + + + + | Adult Annual | | | | | Wellness Visit | 9 | | | + + + + + | Vaccine: | | 09/02/2018 | | | Pneumococcal 65+ (2 | 0 | | | | of 2 - PPSV23) | | | | + + + + + | Vaccine: Influenza | Completed | 09/27/2018, 09/27/2018, | | | | | 03/26/2017, Additional history | | | | | exists | | + + + + + | Hepatitis C | Completed | 12/09/2018, 09/03/2018 | | | Screening | | | | + + + + + Procedures + +--------+ + + + | Procedure Name | Priori | Date/Time | Associated Diagnosis | Comments | | | ty | | | | + +--------+ + + + | PHOSPHORUS | MELANIE | 12/11/2018 | | Results for this | | | | 4:29 AM | | procedure are in the | | | | PDT | | results section. | + +--------+ + + + | MAGNESIUM | MELANIE | 12/11/2018 | | Results for this | | | | 4:29 AM | | procedure are in the | | | | PDT | | results section. | + +--------+ + + + | CBC WITH | MELANIE | 12/11/2018 | | Results for this | | DIFFERENTIAL | | 4:29 AM | | procedure are in the | | | | PDT | | results section. | + +--------+ + + + | BASIC METABOLIC | MELANIE | 12/11/2018 | | Results for this | | PANEL | | 4:29 AM | | procedure are in the | | | | PDT | | results section. | + +--------+ + + + | MRI BRAIN WO | MELANIE | 12/10/2018 | | Results for this | | CONTRAST | | 5:27 PM | | procedure are in the | | | | PDT | | results section. | + +--------+ + + + | ECHO COMPLETE | Routin | 12/10/2018 | | Results for this | | | e | 10:18 AM | | procedure are in the | | | | PDT | | results section. | + +--------+ + + + | LIPID PANEL | Routin | 12/10/2018 | | Results for this | | | e | 4:20 AM | | procedure are in the | | | | PDT | | results section. | + +--------+ + + + | PHOSPHORUS | MELANIE | 12/10/2018 | | Results for this | | | | 4:20 AM | | procedure are in the | | | | PDT | | results section. | + +--------+ + + + | MAGNESIUM | MELANIE | 12/10/2018 | | Results for this | | | | 4:20 AM | | procedure are in the | | | | PDT | | results section. | + +--------+ + + + | HEMOGLOBIN A1C | MELANIE | 12/10/2018 | | Results for this | | | | 4:20 AM | | procedure are in the | | | | PDT | | results section. | + +--------+ + + + | CBC WITH | MELANIE | 12/10/2018 | | Results for this | | DIFFERENTIAL | | 4:20 AM | | procedure are in the | | | | PDT | | results section. | + +--------+ + + + | BASIC METABOLIC | MELANIE | 12/10/2018 | | Results for this | | PANEL | | 4:20 AM | | procedure are in the | | | | PDT | | results section. | + +--------+ + + + | COMPREHENSIVE | STAT | 12/09/2018 | | Results for this | | METABOLIC PANEL | | 6:11 PM | | procedure are in the | | | | PDT | | results section. | + +--------+ + + + | PHOSPHORUS | STAT | 12/09/2018 | | Results for this | | | | 6:11 PM | | procedure are in the | | | | PDT | | results section. | + +--------+ + + + | MAGNESIUM | STAT | 12/09/2018 | | Results for this | | | | 6:11 PM | | procedure are in the | | | | PDT | | results section. | + +--------+ + + + | CBC WITH | STAT | 12/09/2018 | | Results for this | | DIFFERENTIAL | | 6:11 PM | | procedure are in the | | | | PDT | | results section. | + +--------+ + + + | POC GLUCOSE (NON | Routin | 12/09/2018 | | Results for this | | ORD) | e | 5:56 PM | | procedure are in the | | | | PDT | | results section. | + +--------+ + + + | MRSA NAAT | Routin | 12/09/2018 | | Results for this | | | e | 5:30 PM | | procedure are in the | | | | PDT | | results section. | + +--------+ + + + from Last 3 Months Results CBC with Differential (12/11/2018 4:29 AM PDT)Only the most recent of 3 results within the time period is included. + + + + + + | Component | Value | Ref Range | Performed | Pathologist | | | | | At | Signature | + + + + + + | WBC | 6.47 | 3.80 - 11.00 | [facility] | | | | | K/uL | LABORATORY | | + + + + + + | RBC | 4.33 | 3.70 - 5.10 | [facility] | | | | | M/uL | LABORATORY | | + + + + + + | Hemoglobin | 14.6 | 11.3 - 15.5 | [facility] | | | | | g/dL | LABORATORY | | + + + + + + | Hematocrit | 41.5 | 34.0 - 46.0 % | [facility] | | | | | | LABORATORY | | + + + + + + | MCV | 95.8 | 80.0 - 100.0 fl | [facility] | | | | | | LABORATORY | | + + + + + + | MCH | 33.8 | 27.0 - 34.0 pg | [facility] | | | | | | LABORATORY | | + + + + + + | MCHC | 35.3 | 32.0 - 35.5 | [facility] | | | | | g/dL | LABORATORY | | + + + + + + | RDW-SD | 47.3 | 37 - 53 fl | [facility] | | | | | | LABORATORY | | + + + + + + | Platelet | 214 | 150 - 400 K/uL | [facility] | | | Count | | | LABORATORY | | + + + + + + | MPV | 7.5 | fl | [facility] | | | | | | LABORATORY | | + + + + + + | Diff Type | AUTOMATED | | [facility] | | | | | | LABORATORY | | + + + + + + | % | 42.70 | % | [facility] | | | Neutrophils | | | LABORATORY | | + + + + + + | % | 40.76 | % | [facility] | | | Lymphocytes | | | LABORATORY | | + + + + + + | Monocyte % | 11.02 | % | [facility] | | | | | | LABORATORY | | + + + + + + | Eosinophils | 4.49 | % | [facility] | | | % | | | LABORATORY | | + + + + + + | Basophils % | 1.03 | % | [facility] | | | | | | LABORATORY | | + + + + + + | Neutrophils | 2.76 | 1.90 - 7.40 | [facility] | | | , Absolute | | K/uL | LABORATORY | | + + + + + + | Absolute | 2.64 | 1.00 - 3.90 | [facility] | | | Lymphocytes | | K/uL | LABORATORY | | + + + + + + | Absolute | 0.71 | 0.00 - 0.80 | [facility] | | | Monocytes | | K/uL | LABORATORY | | + + + + + + | Eosinophils | 0.29 | 0.00 - 0.50 | [facility] | | | , Absolute | | K/uL | LABORATORY | | + + + + + + | Basophils, | 0.07Comment: Testing | 0.00 - 0.10 | [facility] | | | Absolute | performed at [facility];[address] | K[address] | LABORATORY | | | | [address];[place] | | | | | | [address] | | | | + + + + + + + + | Specimen | + + | Blood | + + + + + + + | Performing | Address | City/State/Zipcode | Phone Number | | Organization | | | | + + + + + | [facility] | [address] | [place] [address] | [phone] | + + + + + Phosphorus (12/11/2018 4:29 AM PDT)Only the most recent of 3 results within the time miko seay is included. + + + + + + | Component | Value | Ref Range | Performed | Pathologist | | | | | At | Signature | + + + + + + | Phosphorus | 4.0Comment: Testing | 2.3 - 4.8 mg/dL | [facility] | | | | performed at [facility];[address] | | LABORATORY | | | | [address];[place], [place] | | | | | | [address] | | | | + + + + + + + + | Specimen | + + | Blood | + + + + + + + | Performing | Address | City/State/Zipcode | Phone Number | | Organization | | | | + + + + + | [facility] | [address] [facility] | [place] [address] | [phone] | + + + + + Magnesium (12/11/2018 4:29 AM PDT)Only the most recent of 3 results within the time period is included. + + + + + + | Component | Value | Ref Range | Performed | Pathologist | | | | | At | Signature | + + + + + + | Magnesium | 1.9Comment: Testing | 1.7 - 2.4 mg/dL | [facility] | | | | performed at [facility] | | LABORATORY | | | | [facility];[place], [place] | | | | | | [address] | | | | + + + + + + + + | Specimen | + + | Blood | + + + + + + + | Performing | Address | City/State/Zipcode | Phone Number | | Organization | | | | + + + + + | [facility] | [address] | [place] [address] | [phone] | + + + + + Basic Metabolic Panel (12/11/2018 4:29 AM PDT)Only the most recent of 2 results within the time period is included. + + + + + + | Component | Value | Ref Range | Performed | Pathologist | | | | | At | Signature | + + + + + + | Na | 144 | 135 - 145 | [facility] | | | | | mmol/L | LABORATORY | | + + + + + + | K | 4.3 | 3.5 - 4.9 | [facility] | | | | | mmol/L | LABORATORY | | + + + + + + | Cl | 110 (H) | 99 - 109 mmol/L | [facility] | | | | | | LABORATORY | | + + + + + + | CO2 | 26 | 23 - 32 mmol/L | [facility] | | | | | | LABORATORY | | + + + + + + | Anion Gap | 12 | 5 - 20 mmol/L | [facility] | | | | | | LABORATORY | | + + + + + + | Glucose | 98 | 65 - 99 mg/dL | [facility] | | | | | | LABORATORY | | + + + + + + | BUN | 9 | 8 - 25 mg/dL | [facility] | | | | | | LABORATORY | | + + + + + + | Creatinine | 0.68 | 0.50 - 1.00 | [facility] | | | | | mg/dL | LABORATORY | | + + + + + + | BUN/Creatin | 13 | | [facility] | | | ine Ratio | | | LABORATORY | | + + + + + + | Calcium | 9.2 | 8.5 - 10.5 | [facility] | | | | | mg/dL | LABORATORY | | + + + + + + | Estimated | >60Comment: GFR <60: | >60 | [facility] | | | GFR | CHRONIC KIDNEY DISEASE, | mL/min/1.73m2 | LABORATORY | | | | IF FOUND OVER A 3 MONTH | | | | | | PERIOD.GFR <15: KIDNEY | | | | | | FAILURE.FOR | | | | | | AMERICANS, MULTIPLY THE | | | | | | CALCULATED GFR BY | | | | | | 1.210.This eGFR is | | | | | | calculated using the | | | | | | MDRD IDTX traceable | | | | | | equation.Testing | | | | | | performed at [facility] | | | | | | [facility];[place], [place] | | | | | | [address] | | | | + + + + + + + + | Specimen | + + | Blood | + + + + + + + | Performing | Address | City/State/Zipcode | Phone Number | | Organization | | | | + + + + + | [facility] | [address] | [place] [address] | [phone] | + + + + + MRI Brain wo Contrast (12/10/2018 5:27 PM PDT) + + | Specimen | + + | | + + + + + | Impressions | Performed At | + + + | 1. Mild non-specific white matter disease, as described above. 2. | [facility] | | Postsurgical changes of the cervical spine with multilevel fusion and | | | degenerative changes of C1 with C2. Signed by: Bruno, | | | Reinier Christianson Sign Date/Time: 12/10/2018 5:34 PM | | + + + + + + | Narrative | Performed At | + + + | MRI BRAIN WITHOUT CONTRAST CLINICAL INFORMATION: Headaches | [facility] | | and Dizziness, Stroke COMPARISON: None. PROCEDURE: Sagittal | | | T1, axial FLAIR, axial T2, axial T1, axial gradient susceptibility, | | | coronal T2, axial DWI. FINDINGS: Brain: Mild scattered focal | | | areas of increased T2 and FLAIR signal seen within the supratentorial | | | white matter, greatest in the right parietal lobe that is | | | nonspecific but may be on the basis of chronic white matter | | | microvascular ischemic gliosis. Other considerations may include | | | migraine headaches, demyelinating process, Lyme disease, or other | | | infectious/inflammatory process. Cranial cervical junction, pineal, | | | pituitary, and damon are unremarkable. Ventricles and extra-axial | | | fluid spaces: Normal. Sella, suprasellar cistern, and orbits: | | | Normal. Major vascular flow voids: Normal. Calvarium and | | | extracranial soft tissues: Extensive postsurgical changes of the | | | visualized cervical spine with multilevel fusion. Paranasal | | | sinuses and mastoid air cells: Normal. | | + + + + + | Procedure Note | + + | Galindo, Rad Results In - 12/10/2018 5:38 PM PDT | | MRI BRAIN WITHOUT CONTRAST | | | | CLINICAL INFORMATION: | | Headaches and Dizziness, Stroke | | | | COMPARISON: | | None. | | | | PROCEDURE: | | Sagittal T1, axial FLAIR, axial T2, axial T1, axial gradient | | susceptibility, coronal T2, axial DWI. | | | | FINDINGS: | | Brain: Mild scattered focal areas of increased T2 and FLAIR signal seen | | within the supratentorial white matter, greatest in the right parietal | | lobe that is nonspecific but may be on the basis of chronic white | | matter microvascular ischemic gliosis. Other considerations may | | include migraine headaches, demyelinating process, Lyme disease, or | | other infectious/inflammatory process. Cranial cervical junction, | | pineal, pituitary, and damon are unremarkable. | | | | Ventricles and extra-axial fluid spaces: Normal. | | | | Sella, suprasellar cistern, and orbits: Normal. | | | | Major vascular flow voids: Normal. | | | | Calvarium and extracranial soft tissues: Extensive postsurgical changes | | of the visualized cervical spine with multilevel fusion. | | | | Paranasal sinuses and mastoid air cells: Normal. | | | | IMPRESSION: | | 1. Mild non-specific white matter disease, as described above. | | 2. Postsurgical changes of the cervical spine with multilevel fusion | | and degenerative changes of C1 with C2. | | | | | | | | Signed by: Meghan Carr Chet | | Sign Date/Time: 12/10/2018 5:34 PM | + + + +---------+ + + | Performing | Address | City/State/Zipcode | Phone Number | | Organization | | | | + +---------+ + + | [facility] | | | | + +---------+ + + ECHO Complete (12/10/2018 10:18 AM PDT) + +--------+ + + + | Component | Value | Ref Range | Performed | Pathologist | | | | | At | Signature | + +--------+ + + + | LVEF-TTE | 60 | % | [facility] | | | TRANSTHORAC | | | | | | IC ECHO | | | | | + +--------+ + + + | BASELINE | 127/80 | mmHg | [facility] | | | BLOOD | | | | | | PRESSURE | | | | | + +--------+ + + + | Patient | 138 | | [facility] | | | Weight | | | | | | (lbs) | | | | | + +--------+ + + + | Patient | 68 | | [facility] | | | Height | | | | | + +--------+ + + + | Inferior | 1.22 | cm | [facility] | | | Vena Cava | | | | | | Diameter at | | | | | | Expiration | | | | | + +--------+ + + + | RA PRESSURE | 3 | mmHg | [facility] | | + +--------+ + + + | LVIDd | 4.32 | cm | [facility] | | + +--------+ + + + | FS | 55 | % | [facility] | | + +--------+ + + + | LA volume | 50.47 | mL | [facility] | | + +--------+ + + + | Ascending | 3.72 | cm | [facility] | | | aorta | | | | | + +--------+ + + + | AV mean | 2.85 | mmHg | [facility] | | | gradient | | | | | + +--------+ + + + | Aortic | 2.35 | cm2 | [facility] | | | Valve Area | | | | | | by | | | | | | Continuity | | | | | | VTI | | | | | + +--------+ + + + | PV peak | 1.27 | mmHg | [facility] | | | gradient | | | | | + +--------+ + + + | LVOT | 2.12 | cm | [facility] | | | diameter | | | | | + +--------+ + + + | LVOT peak | 79.41 | cm/s | [facility] | | | hussain | | | | | + +--------+ + + + | LVOT peak | 17.07 | cm | [facility] | | | VTI | | | | | + +--------+ + + + | AV peak hussain | 109.74 | cm/s | [facility] | | + +--------+ + + + | AV VTI | 25.68 | cm | [facility] | | + +--------+ + + + | AV peak | 4.82 | mmHg | [facility] | | | gradient | | | | | + +--------+ + + + | TV peak | 0.91 | mmHg | [facility] | | | gradient | | | | | + +--------+ + + + | PV mean | 0.84 | mmHg | [facility] | | | gradient | | | | | + +--------+ + + + | LA Volume | 29 | mL/m2 | [facility] | | | Index | | | | | + +--------+ + + + | AV LVOT | 2.52 | mmHg | [facility] | | | Peak | | | | | | Gradient | | | | | + +--------+ + + + | AV LVOT | 1.36 | mmHg | [facility] | | | Mean | | | | | | Gradient | | | | | + +--------+ + + + | TR Peak | 28 | mmHg | [facility] | | | Gradient | | | | | + +--------+ + + + | RV Free | 11.98 | cm/s | [facility] | | | Wall Peak | | | | | | S' | | | | | + +--------+ + + + | TR Velocity | 264.18 | cm | [facility] | | + +--------+ + + + | PI Peak | 56.41 | cm/s | [facility] | | | Velocity | | | | | + +--------+ + + + | LV | 8.06 | cm | [facility] | | | Diastolic | | | | | | Length 4C | | | | | + +--------+ + + + | RV | 3.63 | cm | [facility] | | | Diastolic | | | | | | Basal | | | | | | Diameter | | | | | + +--------+ + + + | LV | 63 | % | [facility] | | | [facility] | | | | | | Biplane EF | | | | | + +--------+ + + + | LV ED | 70.46 | ml | [facility] | | | Volume | | | | | | ([facility]) | | | | | + +--------+ + + + | LV ED | 40 | ml/m2 | [facility] | | | Volume | | | | | | Index | | | | | + +--------+ + + + | LV ES | 26.36 | ml | [facility] | | | Volume | | | | | + +--------+ + + + | LVOT Mean | 55.51 | cm/s | [facility] | | | Velocity | | | | | + +--------+ + + + | RVSP | 31 | mmHg | [facility] | | | Estimated | | | | | + +--------+ + + + | MV | 272.3 | msec | [facility] | | | Deceleratio | | | | | | n Time | | | | | + +--------+ + + + | MV E/A | 0.69 | | [facility] | | | Ratio | | | | | + +--------+ + + + | MV Peak | 67.89 | cm/s | [facility] | | | A-Wave | | | | | + +--------+ + + + | MV Peak | 46.58 | cm/s | [facility] | | | E-Wave | | | | | + +--------+ + + + | TV | 170.39 | msec | [facility] | | | Deceleratio | | | | | | n Time | | | | | + +--------+ + + + | TV Peak | 32.04 | cm/s | [facility] | | | A-Wave | | | | | + +--------+ + + + | TV Peak | 47.71 | cm/s | [facility] | | | E-Wave | | | | | + +--------+ + + + | PV Mean | 43.98 | cm/s | [facility] | | | Velocity | | | | | + +--------+ + + + | AV Mean | 79.63 | cm/s | [facility] | | | Velocity | | | | | + +--------+ + + + | LA Area | 17.91 | cm2 | [facility] | | + +--------+ + + + | LA Major | 0.2568 | cm | [facility] | | + +--------+ + + + | LV ES | 15 | ml/m2 | [facility] | | | Volume | | | | | | Index | | | | | + +--------+ + + + | Heart Rate | 67 | | [facility] | | + +--------+ + + + | IVS | 0.91 | cm | [facility] | | | Diastolic | | | | | | Thickness | | | | | | MM | | | | | + +--------+ + + + | LVPW | 1.01 | cm | [facility] | | | Diastolic | | | | | | Thickness | | | | | | MM | | | | | + +--------+ + + + | IVS | 1.5 | cm | [facility] | | | Systolic | | | | | | Thickness | | | | | | MM | | | | | + +--------+ + + + | LV Systolic | 1.95 | cm | [facility] | | | Diameter | | | | | | MM | | | | | + +--------+ + + + | LVPW | 1.65 | cm | [facility] | | | Systolic | | | | | | Thickness | | | | | | MM | | | | | + +--------+ + + + | TAPSE | 2.14 | cm | [facility] | | + +--------+ + + + + + | Specimen | + + | | + + + + + | Narrative | Performed At | + + + | Normal left | [facility] | | ventricular systolic function. The left ventricular ejection fraction | | | is 60%. There is normal left ventricular wall motion. There is | | | normal left atrial pressure and grade I left ventricular diastolic | | | dysfunction. Normal right ventricular size and systolic function. | | | No significant valvular abnormality. There is no interatrial shunt | | | by Doppler. Bubble study not done due to suboptimal windows. | | | There is no interatrial shunt by Doppler. Bubble study not done due to | | |suboptimal windows. | | | | | + + + + +---------+ + + | Performing | Address | City/State/Zipcode | Phone Number | | Organization | | | | + +---------+ + + | [facility] | | | | + +---------+ + + Lipid Panel (12/10/2018 4:20 AM PDT) + + + + + + | Component | Value | Ref Range | Performed | Pathologist | | | | | At | Signature | + + + + + + | Cholesterol | 222 (H) | <200 mg/dL | [facility] | | | | | | LABORATORY | | + + + + + + | Triglycerid | 175 (H) | <150 mg/dL | [facility] | | | es | | | LABORATORY | | + + + + + + | HDL | 82 | >40 mg/dL | [facility] | | | | | | LABORATORY | | + + + + + + | LDL, | 105 (H)Comment: Testing | <100 mg/dL | [facility] | | | Calculated | performed at [facility], [address] | | LABORATORY | | | | [address], | | | | | | [place] [address] | | | | + + + + + + + + | Specimen | + + | Blood | + + + + + + + | Performing | Address | City/State/Zipcode | Phone Number | | Organization | | | | + + + + + | [facility] | [address] | [place] [address] | [phone] | + + + + + Hemoglobin A1C (12/10/2018 4:20 AM PDT) + + + + + + | Component | Value | Ref Range | Performed | Pathologist | | | | | At | Signature | + + + + + + | Hemoglobin | 5.4Comment: HbA1c method | 4.0 - 6.0 % | [facility] | | | A1c | is certified by [employer] | | LABORATORY | | | | and traceable to the | | | | | | DCCT reference | | | | | | method.ADA guidelines | | | | | | indicate: | | | | | | Prediabetes: 5.7 - 6.4 | | | | | | Diabetes: >6.4 | | | | | | Glycemic control for | | | | | | adults with diabetes: | | | | | | <7.0Effective 02/24/2018: | | | | | | Note New Method | | | | + + + + + + | Estimated | 108Comment: Estimated | <154 mg/dL | [facility] | | | Average | Average Glucose | | LABORATORY | | | Glucose | calculated from | | | | | | hemoglobin A1c by use of | | | | | | the ADArecommended | | | | | | formula.Testing | | | | | | performed at [facility], [address] | | | | | | [facility], | | | | | | [place] [address] | | | | + + + + + + + + | Specimen | + + | Blood | + + + + + + + | Performing | Address | City/State/Zipcode | Phone Number | | Organization | | | | + + + + + | [facility] | [address] | [place] [address] | [phone] | + + + + + Comprehensive Metabolic Panel (12/09/2018 6:11 PM PDT) + + + + + + | Component | Value | Ref Range | Performed | Pathologist | | | | | At | Signature | + + + + + + | Na | 146 (H) | 135 - 145 | [facility] | | | | | mmol/L | LABORATORY | | + + + + + + | K | 3.8 | 3.5 - 4.9 | [facility] | | | | | mmol/L | LABORATORY | | + + + + + + | Cl | 111 (H) | 99 - 109 mmol/L | [facility] | | | | | | LABORATORY | | + + + + + + | CO2 | 27 | 23 - 32 mmol/L | [facility] | | | | | | LABORATORY | | + + + + + + | Anion Gap | 12 | 5 - 20 mmol/L | [facility] | | | | | | LABORATORY | | + + + + + + | Glucose | 99 | 65 - 99 mg/dL | [facility] | | | | | | LABORATORY | | + + + + + + | BUN | 9 | 8 - 25 mg/dL | [facility] | | | | | | LABORATORY | | + + + + + + | Creatinine | 0.74 | 0.50 - 1.00 | [facility] | | | | | mg/dL | LABORATORY | | + + + + + + | BUN/Creatin | 12 | | [facility] | | | ine Ratio | | | LABORATORY | | + + + + + + | Calcium | 9.3 | 8.5 - 10.5 | [facility] | | | | | mg/dL | LABORATORY | | + + + + + + | Protein, | 6.7 | 6.3 - 8.2 g/dL | [facility] | | | Total | | | LABORATORY | | + + + + + + | Albumin | 4.0 | 3.3 - 4.8 g/dL | [facility] | | | | | | LABORATORY | | + + + + + + | Globulin | 2.7 | 1.3 - 4.9 g/dL | [facility] | | | | | | LABORATORY | | + + + + + + | A/G Ratio | 1.5 | 1.0 - 2.4 | [facility] | | | | | | LABORATORY | | + + + + + + | BILIRUBIN, | 0.6 | 0.1 - 1.5 mg/dL | [facility] | | | TOTAL | | | LABORATORY | | + + + + + + | ALK PHOS | 105 | 35 - 115 U/L | [facility] | | | | | | LABORATORY | | + + + + + + | AST | 33 | 10 - 45 U/L | [facility] | | | | | | LABORATORY | | + + + + + + | ALT | 37 | 10 - 65 U/L | [facility] | | | | | | LABORATORY | | + + + + + + | Estimated | >60Comment: GFR <60: | >60 | [facility] | | | GFR | CHRONIC KIDNEY DISEASE, | mL/min/1.73m2 | LABORATORY | | | | IF FOUND OVER A 3 MONTH | | | | | | PERIOD.GFR <15: KIDNEY | | | | | | FAILURE.FOR | | | | | | AMERICANS, MULTIPLY THE | | | | | | CALCULATED GFR BY | | | | | | 1.210.This eGFR is | | | | | | calculated using the | | | | | | MDRD IDMS traceable | | | | | | equation.Testing | | | | | | performed at [facility] [place] | | | | | | [facility];[place], [place] | | | | | | [address] | | | | + + + + + + + + | Specimen | + + | Blood | + + + + + + + | Performing | Address | City/State/Zipcode | Phone Number | | Organization | | | | + + + + + | [facility] | [address] | [place] [address] | [phone] | + + + + + POC Glucose (12/09/2018 5:56 PM PDT) + + + + + + | Component | Value | Ref Range | Performed | Pathologist | | | | | At | Signature | + + + + + + | Glucose, | 94Comment: Testing | 65 - 99 mg/dL | [facility] | | | POC | performed at [facility] [place];[address] | LABORATORY | | | | [address];[place] | | | | | | [address] | | | | + + + + + + + + | Specimen | + + | | + + + + + + + | Performing | Address | City/State/Zipcode | Phone Number | | Organization | | | | + + + + + | [facility] | [address] | [place] [address] | [phone] | + + + + + MRSA NAAT (12/09/2018 5:30 PM PDT) + + + + + + | Component | Value | Ref Range | Performed | Pathologist | | | | | At | Signature | + + + + + + | SOURCE: | NARES(NOSE) | | [facility] | | | | | | LABORATORY | | + + + + + + | Result | NEGATIVEComment: Testing | MRSNEG | [facility] | | | | performed at [facility];[address] | | LABORATORY | | | | [address] [facility];[place], [place] | | | | | | [address] | | | | + + + + + + + + | Specimen | + + | Tissue - Both | | anterior nares (body | | structure) | + + + + + + + | Performing | Address | City/State/Zipcode | Phone Number | | Organization | | | | + + + + + | [facility] | [address] | [place] [address] | [phone] | + + + + + from Last 3 Months Insurance + +--------+ +--------+ +---------+--------+ | Payer | Benefi | Subscriber | Effect | Phone | Address | Type | | | t Plan | ID | gagandeep | | | | | | / | | Dates | | | | | | Group | | | | | | + +--------+ +--------+ +---------+--------+ | MEDICARE | MEDICA | [id number] | | [phone] | | Medica | | | RE | | [phone]-Pr | 5 | | re | | | PART A | | esent | | | | | | AND B | | | | | | + +--------+ +--------+ +---------+--------+ | [place] | MEDICA | [id number] | 12/09/ | [phone] | | Medica | | | [place] | | 2019-P | 2 | | id | | | PLUS | | resent | | | | + +--------+ +--------+ +---------+--------+ + +--------+ +--------+ + + | Guarantor Name | Accoun | Relation to | Date | Phone | Billing Address | | | t Type | Patient | of | | | | | | | | | | + +--------+ +--------+ + + | Jessica Deutsch | Person | Self [birth year] | C/O GENERAL | | Gay | al/Fam | | 1956 | [phone] | [address] [place], | | | [address] | | | [address] ([address]) | [place] [address] | + +--------+ +--------+ + + | Jessica Deutsch | Person | Self | [birth year] | C/O GENERAL | | Gay | al/Fam | | 1956 | [phone] | [address] [place], | | | [address] | | | [address] (Home) | [place] [address] | + +--------+ +--------+ + + Advance Directives + + + + + | Type | Date Recorded | Patient | Explanation | | | | 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
--- OUTSIDE RECORDS SUMMARY | ~2019-01-22 | XMS | Encounter Summary ---
Demographics + + + | Address | [address] | | | [place] [address] | + + + | Home Phone | | + + + | Preferred Language | Unknown | + + + | Marital Status | | + + + | Pentecostal Affiliation | Unknown | + + + | Race | Unknown | + + + | Ethnic Group | Unknown | + + + Author + + + | Author | [facility] | | | and [place] | + + + | Organization | [facility] | | [...] Team Providers + +------+ + | Care Electrotype Servicer Name | Role | Phone | + +------+ + | Ben Tirado MD | PCP | | + +------+ + Reason for Referral Evaluate & Treat (Urgent) + + + + + + + | Status | Reason | Specialty | Diagnoses / | Referred By | Referred To | | | | | Procedures | Contact | Contact | + + + + + + + | Pending | Specialty | Physical | Diagnoses | [place], | | | Review | Services | Therapy | S/P admn | Ce, | | | | Required | | tPA in diff | [employer] [address] | | | | | | fac w/n last | [address] | | | | | | 24 hr bef | [place], [place] | | | | | | adm to crnt | [id number] | | | | | | fac History | Phone: | | | | | | of cervical | [phone] | | | | | | spinal | Fax: | | | | | | arthrodesis | [phone] | | | | | | History of | | | | | | | fusion of | | | | | | | cervical | | | | | | | spine | | | | | | | 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 | | | + + + + + + + Reason for Visit Auth/Cert +--------+--------+ + + + + | Status | Reason | Specialty | Diagnoses / | Referred By | Referred To | | | | | Procedures | Contact | Contact | +--------+--------+ + + + + | | | | Diagnoses | | | | | | | CVA | | | +--------+--------+ + + + + Encounter Details +--------+ + + + + | Date | Type | Department | Care Team | Description | +--------+ + + + + | 12/09/ | Hospital | [facility] | Dale Panda | History of fusion of | | 2019 - | Encounter | [facility] | MD Amparo [address] | cervical spine | | | | INTENSIVE CARE UNIT | [address] [place], [place] | (Primary Dx); Acute | | 12/11/ | | [address] | [id number] | CVA (cerebrovascular | | 2019 | | [place], [place] | | accident) (HCC); | | | | [id number] | | Chronic hepatitis C | | | | [phone] | | without hepatic coma | | [...] knee | +--------+ + + + + Social [...] + + + documented in this encounter Functional Status + + + + | Functional Status | Response | Date of Assessment | + + + + | Are you deaf or do you have serious | No | 12/11/2018 | | difficulty hearing? | | | + + + + | Are you blind or do you have serious | No | 12/11/2018 | | difficulty seeing, even when wearing | | | | glasses? | | | + + + + | Do you have serious difficulty walking or | No | 12/11/2018 | | climbing stairs? (5 years old or older) | | | + + + + | Do you have difficulty dressing or bathing? | No | 12/11/2018 | | (5 years old or older) | | | + + + + | Because of a physical, mental, or emotional | No | 12/11/2018 | | condition, do you have difficulty doing | | | | errands alone such as visiting a doctor's | | | | office or shopping? [15 years old or | | | | older)] | | | + + + + + + + + | Cognitive Status | Response | Date of Assessment | + + + + | Because of a physical, mental, or emotional | No | 12/11/2018 | | condition, do you have serious difficulty | | | | concentrating, remembering, or making | | | | decisions? (5 years old or older) | | | + + + + documented as of this encounter Discharge Summaries TyrelljessicakendallCe ARNP - 12/11/2018 10:13 AM PDT [facility]: Certified Personal Trainer Discharge Summary Jessica Deutsch 63 y.o. Date of Admission: 12/09/2018 Date of Discharge: 12/11/2018 Treatment Team: Christen Langley MD ADMITTING DIAGNOSES Present on Admission: Acute CVA (cerebrovascular accident) (HCC) Essential hypertension Chronic pain syndrome Chronic hepatitis C without hepatic coma (HCC) Tobacco abuse DISCHARGE DIAGNOSES Principal Problem (Resolved): Acute CVA (cerebrovascular accident) Active Problems: Essential hypertension Chronic hepatitis C without hepatic coma Tobacco abuse Chronic pain syndrome Mixed hyperlipidemia BRIEF HISTORY OF PRESENTATION The patient is a 63 y.o. female with significant past medical history of HTN, migraine, hep atitis C, chronic pain syndrome (with implanted pain pump), current smoker who presented to [facility] due to a several day history of headache with right sided weakness that began at 1315 today (12/09). She also had trouble walking but denied any problems with spee ch, no memory loss, no vision loss or changes. She had a similar episode appx 2 months ago w ith high blood pressures, her symptoms improved with lowering of BP. She is not on BP meds a nd MRI was not done at that time. Initial labs were unremarkable. CT head was done that showed no acute process. Telestroke w as contacted; NIHSS at that time was 0. tPA was recommended and patient received dose at 153 3, ending at 1645. Patient was transferred to [facility] ICU via [facility] for neurology and high er level of care post tPA. Active comorbid conditions include: - hypertension - hepatitis; C - Drugs/Alcohol/Tobacco - tobacco use HOSPITAL COURSE ICU Timeline: 12/09- Admitted to ICU s/p tPA admin. Hemodynamically stable. 12/10: Neurologically intact; MRI negative. Echo negative. No acute events or issues ov ernight. Neuro status remains unchanged. Evaluated by neurology. 12/11: Cleared by PT to discharge home. PAST MEDICAL HISTORY Past Medical History: Diagnosis Date Hepatitis C Hypertension Other chronic pain PAST SURGICAL HISTORY Past Surgical History: Procedure Laterality Date ABDOMEN SURGERY APPENDECTOMY COLONOSCOPY HYSTERECTOMY KNEE SURGERY MANDIBLE RECONSTRUCTION NECK SURGERY 10/1989-05/1993 C fusion [facility] OTHER SURGICAL HISTORY HARDWARE PRESENT OTHER SURGICAL HISTORY 95 2000, 2005, 2010, 2010, 2014 DRUG PUMP REVISION - Drug pump revision SPINE SURGERY DISCHARGE MEDS Discharge Medications New Medications Details atorvaSTATin 80 MG tablet Take 0.5 tablets by mouth Daily. aka: LIPITOR propranolol 20 MG tablet Take 1 tablet by mouth 2 times daily. aka: INDERAL Changed Medications Details acetaminophen 325 mg tablet Take 325 mg by mouth every 6 (six) hours as needed for Pain. Sleep aid What changed: how much to take when to take this aka: TYLENOL Unchanged Medications Details albuterol 90 mcg/puff inhaler Inhale 2 puffs into the lungs 2 times daily. EPINEPHrine auto-injector 0.3 mg/0.3 mL injection Inject 0.3 mLs into the muscle as needed for Anaphylaxis. escitalopram 10 mg tablet Take 10 mg by mouth Daily. aka: LEXAPRO ibuprofen 600 MG tablet Take 1 tablet by mouth 3 times daily as needed for Pain. aka: ADVIL,MOTRIN LATUDA 120 mg tablet Generic drug: lurasidone Take 1 tablet by mouth Daily. QUEtiapine 100 mg tablet Take 2 tablets by mouth nightly. aka: SEROquel DISCHARGE EXAM EXAM GEN:pleasant female who appears stated age. She isawake, alert, oriented x3, NAD. Sitti ng up in bed eating breakfast with R hand. NEURO:Pupils equal and reactive to light, EOMI and without nystagmus. Cranial nerve testing reveals visual wills full to confrontation. Face activates asymmetricallywith no facial droop. Hearing intact . Soft palate elevates symmetrically. Tongue protrudes midline. Motor testing reveals4/5 strength RUE/RLE;5/5 LUE/LLE.Tankman so mewhat weaker on R with slight pronator drift.No involuntary movements are appreciated. Sensory exam is normal to light touchon LUE/LLE/RUE/RLE HEENT:sclerae clear, nonicteric, oral mmm, pink, no exudates NECK: supple, trachea midline CV:RRR, S1/S2, no murmur, rub or gallop, peripheral pulses palpable, cap refill brisk LUNGS: clear b/l, no wheezing, rales or rhonchi, symmetric chest expansion, even/unlabored respirationson RA ABD:soft, nondistended, nontender to palpation, no masses EXTR:no edema, clubbing or cyanosis SKIN:warm, dry, no rash or mottling; no e/o skin breakdown over the occiput, scapulae, el bows, sacrum or heels. Pain pump site intact with no e/o infection LINES/TUBES:piv FOLLOW UP APPOINTMENTS Ben Tirado MD [address] [place] [address] Schedule an appointment as soon as possible for a visit As needed Disposition: Discharge home with roommates to assist. Referral given for outpatient physic al therapy. Follow up with PCP Condition on Discharge: stable Code Status: Full Code Primary Care Physician: Ben Tirado MD *Please bill 30 minutes of high complexity time spent evaluating the patient, reviewing the data and formulating a plan exclusive of all other procedures. RAPHAEL Flores 12/11/2018 documented in thi s encounter Discharge Instructions Instructions Ce Steele ARNP - 12/11/2018 [id number] Checking Your Blood Pressure Date Last Reviewed: 06/06/201519994209-7805 [employer] [address] [place] [id number]. All righ ts reserved. This information is not intended as a substitute for professional medical care. Always follow your healthcare professional's instructions. Discharge Instructions for High Blood Pressure (Hypertension) You have been diagnosed with high blood pressure (also called hypertension). This means the force of blood against your artery tierney is too strong. It also means your heart is working hard to move blood. High blood pressure usually has no symptoms, but over time, it can caus e serious health problems. High blood pressure raises your risk for heart attack, stroke, he art failure, kidney disease, and blindness. With help from your doctor, you can manage your blood pressure and protect your health. Blood pressure measurements are given as 2 numbers. Systolic blood pressure is the upper nu mber. This is the pressure when the heart contracts. Diastolic blood pressure is the lower n umber. This is the pressure when the heart relaxes between beats. Blood pressure is categorized as normal, elevated, or stage 1 or stage 2 high blood pressur e: Normal blood pressure is systolic of less than 120 and diastolic of less than 80 (120/80 ) Elevated blood pressure is systolic of 120 to 129 and diastolic less than 80 Stage 1 high blood pressure is systolic is 130 to 139 or diastolic between 80 to 89 Stage 2 high blood pressure is when systolic is 140 or higher or the diastolic is 90 or higher Taking medicine Learn to take your own blood pressure. Keep a record of your results. Ask your doctor wh ich readings mean that you need medical attention. Take your blood pressure medicine exactly as directed. Don t skip doses. Missing doses can cause your blood pressure to get out of control. If you do miss a dose (or doses) check with your healthcare provider about what to do. Don't take medicines that contain heart stimulants, including gesh-zwc-bitchvl medicines . Check for warnings about high blood pressure on the label. Ask the pharmacist before purch asing something you haven't used before Check with your doctor or pharmacist before taking a decongestant. Some decongestants ca n worsen high blood pressure. Lifestyle changes Maintain a healthy weight. Get help to lose any extra pounds. Cut back on salt. ? Limit canned, dried, packaged, and fast foods. ? Don t add salt to your food at the table. ? Season foods with herbs instead of salt when you cook. ? Request no added salt when you go to a restaurant. ? The [place] [employer] (AHA) says the "ideal" amount of sodiumis no more than 1,500 mg aday. But becauseAmericans eat so much salt, you can make a positive change b ycutting back to even 2,400 mg of sodium a day. Follow the DASH (Dietary Approaches to Stop Hypertension) eating plan. This plan recomme nds vegetables, fruits, whole gains, and other heart healthy foods. Begin an exercise program. Ask your healthcare provider how to get started. The AHA fidel mmends aerobic exercise 3 to 4 times a week for an average of 40 minutes at a time, with you r provider's approval. Simple activities like walking or gardening can help. Break the smoking habit. Enroll in a stop-smoking program to improve your chances of suc cess. Ask your healthcare provider about programs and medicines to help you stop smoking. Limit drinks that contain caffeine such as coffee, black or green tea, and cola to 2 per day. Never take stimulants such as amphetamines or cocaine. These drugs can be deadly for dianna eone with high blood pressure. Control your stress. Learn ways to manage stress. Limit alcohol to no more than 1 drink a day for women and 2 drinks a day for men. Follow-up care Make a follow-up appointment as directed. When to call your healthcare provider Call your healthcare provider right away if you have any of the following: Chest pain or shortness of breath (call 911) Moderate to severe headache Weakness in the muscles of your face, arms, or legs Trouble speaking Extreme drowsiness Confusion Fainting or dizziness Pulsating or rushing sound in your ears Unexplainednosebleed Weakness, tingling, or numbness of your face, arms, or legs Change in vision Blood pressure measured at home that is greater than 180/110 Date Last Reviewed: 06/06/201519994926-6127 [employer] [address] [place] [address]. All righ ts reserved. This information is not intended as a substitute for professional medical care. Always follow your healthcare professional's instructions. documented in this encounter Medications at Time [...] + + + +---------+ + + | albuterol 90 | Inhale 2 puffs into | | 0 | | | | mcg/puff inhaler | the lungs 2 times | | | | | | | daily. | | | | | + + + +---------+ + + | atorvaSTATin | Take 0.5 tablets by | 30 | 0 | 12/12/19 | | | (LIPITOR) 80 MG | mouth Daily. | tablet | | 19 | | | tablet | | | | | | + + + +---------+ + + | EPINEPHrine | Inject 0.3 mLs into | | 0 | 09/04/19 | | | auto-injector 0.3 | the muscle as needed | | | 19 | | | mg/0.3 mL injection | for Anaphylaxis. | | | | | + + + +---------+ + + | escitalopram | Take 10 mg by mouth | | 0 | 11/27/19 | | | (LEXAPRO) 10 mg | Daily. | | | 19 | | | tablet | | | | | | + + + +---------+ + + | ibuprofen | Take 1 tablet by | | 0 | 01/20/20 | | | (ADVIL,MOTRIN) 600 | mouth 3 times daily | | | 18 | | | MG tablet | as needed for Pain. | | | | | + + + +---------+ + + | LATUDA 120 MG | Take 1 tablet by | | 0 | 11/27/19 | | | tablet | mouth Daily. | | | 19 | | + + + +---------+ + + | propranolol | Take 1 tablet by | 60 | 0 | 12/12/19 | | | (INDERAL) 20 MG | mouth 2 times daily. | tablet | | 19 | | | tablet | | | | | | + + + +---------+ + + | QUEtiapine | Take 2 tablets by | | 0 | 11/23/19 | | | (SEROQUEL) 100 mg | mouth nightly. | | | 19 | | | tablet | | | | | | + + + +---------+ + + documented as of this encounter Progress Notes Thomas Landa RN - 12/11/2018 12:49 PM PDTPt discharge instructions reviewed with RX in formation, return demonstration from pt. Pt vitals remain stable, IVs removed, pt dressed. Pt to [facility] lobby with hospital escort to await taxi for ride home. Evin Lyon ARNP - 12/11/2018 1:23 AM PDT [facility]: Certified Personal Trainer Progress Note Jessica Rashid Leahhom 63 y.o. Hospital Day: LOS: 2 days Post-Op Day: * No surgery found * Consulting Physicians Treatment Team: Christen Langley MD SUBJECTIVE Patient Summary: From Maria Luisa LIM H&P on 12/09: "The patient is a 63 y.o. female with significant past medical history of HTN, migraine, hepatitis C, chronic pain syndrome (with implanted pain pump), current smoker who presented to [facility] due to a history of headache with right sided weakness that began at 1315 today (12/09). Yayo ang also had trouble walking but denied any problems with speech, no memory loss, no vision lo ss or changes. She had a similar episode appx 2 months ago with high blood pressures, her sy mptoms improved with lowering of BP. She is not on BP meds and MRI was not done at that time . Initial labs were unremarkable. CT head was done that showed no acute process. Telestroke w as contacted; NIHSS at that time was 0. tPA was recommended and patient received dose at 153 3, ending at 1645. Patient was transferred to [facility] ICU via [facility] for neurology and high er level of care post tPA." ICU Timeline: 12/09- Admitted to ICU s/p tPA admin. Hemodynamically stable. 12/10: Neurologically intact; MRI negative Events Overnight: No acute events or issues overnight. Neuro status remains unchange d SCHEDULED MEDICATIONS Reviewed. OBJECTIVE VITAL SIGNS Temp: [36.5 C (97.7 F)-36.9 C (98.4 F)] 36.6 C (97.8 F) Pulse: [58-80] 65 Resp: [8-25] 18 BP: (124-175)/(76-111) 146/92 Intake/Output Summary (Last 24 hours) at 12/11/2018 0123 Last data filed at 12/10/2018 1300 Gross per 24 hour Intake 810 ml Output Net 810 ml EXAM GEN: pleasant female who appears stated age. She is awake, alert, oriented x3, NAD NEURO:Pupils equal and reactive to light, EOMI and without nystagmus. Face activates asymmetricallywith no facial droop. Hearing intact . Soft palate elevates symmetrically. Tongue protrudes midline. Motor testing reveals 4+/5 strength RUE/RLE; 5/5 LUE/LLE, no pronat or drift. No involuntary movements are appreciated. Sensory exam is normal to light touchon LUE/LLE/RUE/RLE HEENT: sclerae clear, nonicteric, oral mmm, pink, no exudates NECK: supple, trachea midline CV: RRR, S1/S2, no murmur, rub or gallop, peripheral pulses palpable, cap refill brisk LUNGS: clear b/l, no wheezing, rales or rhonchi, symmetric chest expansion, even/unlabored respirations on RA ABD: soft, nondistended, nontender to palpation, no masses EXTR: no edema, clubbing or cyanosis SKIN: warm, dry, no rash or mottling; no e/o skin breakdown over the occiput, scapulae, elb ows, sacrum or heels. Pain pump site intact with no e/o infection LINES/TUBES: piv Diagnostic Studies: Available labs and images have been reviewed and will be addressed as indicated in the assessment and plan. PROBLEM LIST Principal Problem: Acute CVA (cerebrovascular accident) Active Problems: Essential hypertension Chronic hepatitis C without hepatic coma Tobacco abuse Chronic pain syndrome Resolved Problems: * No resolved hospital problems. * ASSESSMENT & PLAN NEURO: Suspected cerebrovascular disease --Possible acuteischemic infarction vs migraine/el evated BP.NIH stroke scale was0. Status post TPA administration at 1533 on day of admi ssion Neurology consult; no evidence of acute stroke on MRI thought poss complex migraine. MR I negative. No indication for antiplatelet therapy as per Neurology, Initiation of intensive statin therapy-Lipitor 80 mg. Maintain euglycemia, euthermia, euvolemia. Imaging:echocardiogram, MRI as above Neuro checks per protocol. Cardiac telemetry. BP management:Permissive hypertension -- allow autoregulation of blood pressure. 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 Stroke Education. CV: Hypertension - BP management as above. PULM: No acute issues GI/NUTRITION: General Diet RENAL/LYTES: No acute issues. Renally dose medications, avoid nephrotoxins Monitor electrolytes and replace per protocol Strict I/O's, daily weights ID: No evidence of infection HEME: Monitor for s/s bleeding, follow CBC, coags ENDO: BS goal 80-180; start treatment if BG >180 X2 MUSC/SKIN: Chronic pain syndrome with neck pain. Followed by pain specialist and has pain pump in p lace. PROPHYLAXIS: Stress ulcer prophylaxis: N/A DVT prophylaxis: SCD's while in bed VAP bundle: N/A Disposition: Cares as above; can likely transition to acute care floor later today Code Status: Full Code *Please bill 35 minutes of critical care time spent evaluating the patient, reviewing the d oly and formulating a plan exclusive of all other procedures. RAPHAEL Kennedy 12/11/2018 Thomas Lyon RN - 12/10/2018 7:01 PM PDTEnd of shift self audit completed. Kayla Dodge RN - 12/10/2018 5:51 PM PDTPost MRI drug pump read performed. Pump motor stall recovery occurred. Kayla Dodge RN - 12/10/2018 5:09 PM PDTP atient having MRI done. Pre drug pump read performed prior to. Kalpesh Reinoso RPH - 12/10/2018 4:06 PM PDTM edication Reconciliation History -Med rec history was obtained from surescripts, pharmacy and patient The following changes were made -Per patient, she stopped taking escitalopram and Latuda on 12/07/18 since she thought thes e medications were causing her headache. After stopping these, her headaches still persisted . -Patient reports she is on a pain pump that is managed by Dr. Jaren Amaya in [facility]. -Medications Removed -Cyclobenzaprine -Clonidine -[place] -Hydromorphone -Mirtazapine Alexander. Bakari RPH 12/10/18 Ce Rojas ARNP - 12/10/2018 8:53 AM PDT . [facility]: Certified Personal Trainer Progress Note Jessica Gay Lynnhom 63 y.o. Hospital Day: LOS: 1 day Post-Op Day: * No surgery found * Consulting Physicians SUBJECTIVE Patient Summary: From Maria Luisa LIM H&P on 12/09: "The patient is a 63 y.o. female with significant past medical history of HTN, migraine, hepatitis C, chronic pain syndrome (with implanted pain pump), current smoker who presented to [facility] due to a day history of headache with right sided weakness that began at 1315 today (12/09). Yayo ang also had trouble walking but denied any problems with speech, no memory loss, no vision lo ss or changes. She had a similar episode appx 2 months ago with high blood pressures, her sy mptoms improved with lowering of BP. She is not on BP meds and MRI was not done at that time . Initial labs were unremarkable. CT head was done that showed no acute process. Telestroke w as contacted; NIHSS at that time was 0. tPA was recommended and patient received dose at 153 3, ending at 1645. Patient was transferred to [facility] ICU via [facility] for neurology and high er level of care post tPA." ICU Timeline: 12/09- Admitted to ICU s/p tPA admin. Hemodynamically stable. Events Overnight: No acute events. SCHEDULED MEDICATIONS Reviewed. OBJECTIVE VITAL SIGNS Temp: [36.5 C (97.7 F)-37 C (98.6 F)] 36.7 C (98 F) Pulse: [58-79] 63 Resp: [8-22] 19 BP: (117-151)/(66-96) 124/80 Intake/Output Summary (Last 24 hours) at 12/10/2018 1054 Last data filed at 12/10/2018 0400 Gross per 24 hour Intake 550 ml Output Net 550 ml EXAM GEN: pleasant female who appears stated age. She is awake, alert, oriented x3, NAD NEURO:Pupils equal and reactive to light, EOMI and without nystagmus. Cranial nerve testing reveals visual wills full to confrontation. Face activates asymmetricallywith no facial droop. Hearing intact . Soft palate elevates symmetrically. Tongue protrudes midline. Motor testing reveals 4/5 strength RUE/RLE; 5/5 LUE/LLE. Tankman somew hat weaker on R with slight pronator drift. No involuntary movements are appreciated. Sensory exam is normal to light touchon LUE/LLE/RUE/RLE HEENT: sclerae clear, nonicteric, oral mmm, pink, no exudates NECK: supple, trachea midline CV: RRR, S1/S2, no murmur, rub or gallop, peripheral pulses palpable, cap refill brisk LUNGS: clear b/l, no wheezing, rales or rhonchi, symmetric chest expansion, even/unlabored respirations on RA ABD: soft, nondistended, nontender to palpation, no masses EXTR: no edema, clubbing or cyanosis SKIN: warm, dry, no rash or mottling; no e/o skin breakdown over the occiput, scapulae, elb ows, sacrum or heels. Pain pump site intact with no e/o infection LINES/TUBES: piv Diagnostic Studies: Available labs and images have been reviewed and will be addressed as indicated in the assessment and plan. PROBLEM LIST Principal Problem: Acute CVA (cerebrovascular accident) Active Problems: Essential hypertension Chronic hepatitis C without hepatic coma Tobacco abuse Chronic pain syndrome Resolved Problems: * No resolved hospital problems. * ASSESSMENT & PLAN NEURO: Suspected cerebrovascular disease --Possible acuteischemic infarction vs migraine/el evated BP.NIH stroke scale was0. Status post TPA administration at 1533 Neurology consult. Plan for MRI tomorrow at 1300. Plan: Antiplatelet therapy with aspirin post MRI. Initiation of intensive statin therapy -Lipitor 80 mg. Avoid dextrose containing fluids. Prefer non-dextrose containing isotonic fluids for hyd ration. Maintain euglycemia, euthermia, euvolemia. Imaging:echocardiogram, MRI as above Neuro checks per protocol. Cardiac telemetry. BP management:Permissive hypertension -- allow autoregulation of blood pressure. 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 Stroke Education. CV: Hypertension - BP management as above. PULM: No acute issues GI/NUTRITION: NPO until passes swallow then ADAT RENAL/LYTES: No acute issues. Renally dose medications, avoid nephrotoxins Monitor electrolytes and replace per protocol Strict I/O's, daily weights ID: No evidence of infection HEME: Monitor for s/s bleeding, follow CBC, coags ENDO: BS goal 80-180 MUSC/SKIN: Chronic pain syndrome with neck pain. Followed by pain specialist and has pain pump in p lace. PROPHYLAXIS: Stress ulcer prophylaxis: N/A DVT prophylaxis: SCD's while in bed VAP bundle: N/A Disposition: MRI this afternoon. Pharmacy to review home med list due to discrepancies. Code Status: Full Code *Please bill 40 minutes of critical care time spent evaluating the patient, reviewing the d oly and formulating a plan exclusive of all other procedures. RAHPAEL Flores 12/10/2018 Ade Rdz PT - 12/10/2018 8:21 AM PDTMISSED THERAPY VISIT Physical Therapy attempted to see the following patient today: Jessica Deutsch Missed Visit (treatment on hold) Chart reviewed, pt received tPA at 1533 yesterday's date. Will hold PT eval until 24-hr wi ndow complete per protocol. Electronically Signed by: ADE OSEGUERA PT, DPT 12/10/2018 8:24 documented in this enco unter Plan of Treatment + + +--------+ + + | Name | Type | Priori | Associated Diagnoses | Order Schedule | | | | ty | | | + + +--------+ + + | Ambulatory referral | Outpatient | Routin | S/P admn tPA in | Ordered: 12/11/2018 | | to Physical Therapy | Referral | e | diff fac w/n last 24 | | | | | | hr bef adm to crnt | | | | | | fac History of | | | | | | fusion of cervical | | | | | | spine History of | | | | | | fusion of cervical | | | | | | spine | | | | | | Post-traumatic | | | | | | osteoarthritis of | | | | | | right knee | | + + +--------+ + + documented as of this encounter Procedures + +--------+ [...] | + +--------+ + + + | KELLY NAAT | Routin | 12/09/2018 | | Results for this | | | e | 5:30 PM | | procedure are in the | | | | PDT | | results section. | + +--------+ + + + documented in this encounter Results Phosphorus (12/11/2018 4:29 AM PDT) + + + + + + | Component | Value | Ref Range | Performed | Pathologist | | | | | At | Signature | + + + + + + | Phosphorus | 4.0Comment: Testing | 2.3 - 4.8 mg/dL | [facility] | | | | performed at [facility] | | LABORATORY | | | | [facility];[place], [place] | | | | | | [address] | | | | + + + + + + + + | Specimen | + + | Blood | + + + + + + + | Performing | Address | City/State/Zipcode | Phone Number | | Organization | | | | + + + + + | [facility] | [address] | [place] [address] | [phone] | + + + + + Magnesium (12/11/2018 4:29 AM PDT) + + + + + + | Component | Value | Ref Range | Performed | Pathologist | | | | | At | Signature | + + + + + + | Magnesium | 1.9Comment: Testing | 1.7 - 2.4 mg/dL | [facility] | | | | performed at [facility];8 | | LABORATORY | | | | [address];[place] | | | | | | [address] | | | | + + + + + + + + | Specimen | + + | Blood | + + + + + + + | Performing | Address | City/State/Zipcode | Phone Number | | Organization | | | | + + + + + | [facility] | [address] | [place] [address] | [phone] | + + + + + CBC with Differential (12/11/2018 4:29 AM PDT) + + + + + [...] 0.07Comment: Testing | 0.00 - 0.10 | [facility] | | | Absolute | performed at [facility];[address] | K/uL | LABORATORY | | | | [address];[place] | | | | | | [address] | | | | + + + + + + + + | Specimen | + + | Blood | + + + + + + + | Performing | Address | City/State/Zipcode | Phone Number | | Organization | | | | + + + + + | [facility] | [address] | [place] [address] | [phone] | + + + + + Basic Metabolic Panel (12/11/2018 4:29 AM PDT) + + + + + [...] | >60Comment: GFR <60: | >60 | [facility] | | | GFR | CHRONIC KIDNEY [...] [facility];[address] | | | | | | [address];[place], [place] | | | | | | [address] | | | | + + + + + + + + | Specimen | + + | Blood | + + + + + + + | Performing | Address | City/State/Zipcode | Phone Number | | Organization | | | | + + + + + | [facility] | [address] | [place] [address] | [phone] | + + + + + MRI [...] with C2. Signed by: Bruno, | | Reinier Ritter D.O. Sign Date/Time: 12/10/2018 5:34 PM | | [...] | | | + +---------+ + + Phosphorus (12/10/2018 4:20 AM PDT) + + + + + + | Component | Value | Ref Range | Performed | Pathologist | | | | | At | Signature | + + + + + + | Phosphorus | 3.8Comment: Testing | 2.3 - 4.8 mg/dL | [facility] | | | | performed at [facility];8 | | LABORATORY | | | | [address];[place], [place] | | | | | | [address] | | | | + + + + + + + + | Specimen | + + | Blood | + + + + + + + | Performing | Address | City/State/Zipcode | Phone Number | | Organization | | | | + + + + + | [facility] | [address] | [place] [address] | [phone] | + + + + + Magnesium (12/10/2018 4:20 AM PDT) + + + + + + | Component | Value | Ref Range | Performed | Pathologist | | | | | At | Signature | + + + + + + | Magnesium | 2.2Comment: Testing | 1.7 - 2.4 mg/dL | [facility] | | | | performed at [facility];[address] | | LABORATORY | | | | [address];[place], [place] | | | | | | [address] | | | | + + + + + + + + | Specimen | + + | Blood | + + + + + + + | Performing | Address | City/State/Zipcode | Phone Number | | Organization | | | | + + + + + | [facility] | [address] | [place] [address] | [phone] | + + + + + Hemoglobin A1C (12/10/2018 4:20 AM PDT) + + + + + + | Component | Value | Ref Range | Performed | Pathologist | | | | | At | Signature | + + + + + + | Hemoglobin | 5.4Comment: HbA1c method | 4.0 - 6.0 % | [facility] | | | A1c | is certified [...] | 108Comment: Estimated | <154 mg/dL | [facility] | | | Average | Average Glucose | | LABORATORY | | | Glucose | calculated from | | | | | | hemoglobin A1c by use of | | | | | | the ADArecommended | | | | | | formula.Testing | | | | | | performed at [facility], [address] | | | | | | [facility], | | | | | | [place] [address] | | | | + + + + + + + + | Specimen | + + | Blood | + + + + + + + | Performing | Address | City/State/Zipcode | Phone Number | | Organization | | | | + + + + + | [facility] | [address] | [place] [address] | [phone] | + + + + + CBC with Differential (12/10/2018 4:20 AM PDT) + + + + + + | Component | Value | Ref Range | Performed | Pathologist | | | | | At | Signature | + + + + + + | WBC | 7.55 | 3.80 - 11.00 | [facility] | | | | | K/uL | LABORATORY | | + + + + + + | RBC | 4.27 | 3.70 - 5.10 | [facility] | | | | | M/uL | LABORATORY | | + + + + + + | Hemoglobin | 14.2 | 11.3 - 15.5 | [facility] | | | | | g/dL | LABORATORY | | + + + + + + | Hematocrit | 40.2 | 34.0 - 46.0 % | [facility] | | | | | | LABORATORY | | + + + + + + | MCV | 94.2 | 80.0 - 100.0 fl | [facility] | | | | | | LABORATORY | | + + + + + + | MCH | 33.3 | 27.0 - 34.0 pg | [facility] [...] + + + + | Platelet | 225 | 150 - 400 K/uL | [facility] | | | Count | | | LABORATORY | | + + + + + + | MPV | 7.2 | fl | [facility] | | | | | | LABORATORY | | + + + + + + | Diff Type | AUTOMATED | | [facility] | | | | | | LABORATORY | | + + + + + + | % | 44.56 | % | [facility] | | | Neutrophils | | | LABORATORY | | + + + + + + | % | 38.52 | % | [facility] | | | Lymphocytes | | | LABORATORY | | + + + + + + | Monocyte % | 11.03 | % | [facility] | | | | | | LABORATORY | | + + + + + + | Eosinophils | 4.57 | % | [facility] | | | % | | | LABORATORY | | + + + + + + | Basophils % | 1.32 | % | [facility] | | | | | | LABORATORY | | + + + + + + | Neutrophils | 3.36 | 1.90 - 7.40 | [facility] | | | , Absolute | | K/uL | LABORATORY | | + + + + + + | Absolute | 2.91 | 1.00 - 3.90 | [facility] | | | Lymphocytes | | K/uL | LABORATORY | | + + + + + + | Absolute | 0.83 (H) | 0.00 - 0.80 | [facility] | | | Monocytes | | K/uL | LABORATORY | | + + + + + + | Eosinophils | 0.35 | 0.00 - 0.50 | [facility] | | | , Absolute | | K/uL | LABORATORY | | + + + + + + | Basophils, | 0.10Comment: Testing | 0.00 - 0.10 | [facility] | | | Absolute | performed at [facility];[address] | [address]L | LABORATORY | | | | [address];[place], [place] | | | | | | [address] | | | | + + + + + + + + | Specimen | + + | Blood | + + + + + + + | Performing | Address | City/State/Zipcode | Phone Number | | Organization | | | | + + + + + | [facility] | [address] | [place] [address] | [phone] | + + + + + Basic Metabolic Panel (12/10/2018 4:20 AM PDT) + + [...] + + + + | K | 4.5 | 3.5 - 4.9 | [facility] | [...] + + + + | Glucose | 95 | 65 - 99 mg/dL | [facility] | | | | | | LABORATORY | | + + + + + + | BUN | 8 | 8 - 25 mg/dL | [facility] [...] + + + + | Calcium | 9.0 | 8.5 - 10.5 | [facility] | | | | | mg/dL | LABORATORY | | + + + + + + | Estimated | >60Comment: GFR <60: | >60 | [facility] | | | GFR | CHRONIC KIDNEY [...] | | | | | | MDRD IDMT traceable | | | | | | equation.Testing | | | | | | performed at [facility];[address] | | | | | | [facility];[place], [place] | | | | | | [address] | | | | + + + + + + + + | Specimen | + + | Blood | + + + + + + + | Performing | Address | City/State/Zipcode | Phone Number | | Organization | | | | + + + + + | [facility] | [address] | [place] [address] | [phone] | + + + + + Lipid Panel (12/10/2018 4:20 AM [...] 105 (H)Comment: Testing | <100 mg/dL | [facility] | | | Calculated | performed at [facility], [address] | | LABORATORY | | | | [address], | | | | | | [place] [address] | | | | + + + + + + + + | Specimen | + + | Blood | + + + + + + + | Performing | Address | City/State/Zipcode | Phone Number | | Organization | | | | + + + + + | [facility] | [address] | [place] [address] | [phone] | + + + + + Comprehensive [...] | >60Comment: GFR <60: | >60 | [facility] | | | GFR | CHRONIC KIDNEY [...] [facility];[address] | | | | | | [address];[place], [place] | | | | | | [address] | | | | + + + + + + + + | Specimen | + + | Blood | + + + + + + + | Performing | Address | City/State/Zipcode | Phone Number | | Organization | | | | + + + + + | [facility] | [address] | [place] [address] | [phone] | + + + + + Phosphorus (12/09/2018 6:11 PM PDT) + + + + + + | Component | Value | Ref Range | Performed | Pathologist | | | | | At | Signature | + + + + + + | Phosphorus | 4.3Comment: Testing | 2.3 - 4.8 mg/dL | [facility] | | | | performed at [facility];8 | | LABORATORY | | | | [address];[place], [place] | | | | | | [address] | | | | + + + + + + + + | Specimen | + + | Blood | + + + + + + + | Performing | Address | City/State/Zipcode | Phone Number | | Organization | | | | + + + + + | [facility] | [address] | [place] [address] | [phone] | + + + + + Magnesium (12/09/2018 6:11 PM PDT) + + + + + + | Component | Value | Ref Range | Performed | Pathologist | | | | | At | Signature | + + + + + + | Magnesium | 1.8Comment: Testing | 1.7 - 2.4 mg/dL | [facility] | | | | performed at [facility];[address] | | LABORATORY | | | | [address];[place] | | | | | | [address] | | | | + + + + + + + + | Specimen | + + | Blood | + + + + + + + | Performing | Address | City/State/Zipcode | Phone Number | | Organization | | | | + + + + + | [facility] | [address] | [place] [address] | [phone] | + + + + + CBC with Differential (12/09/2018 6:11 PM PDT) + + + + + + | Component | Value | Ref Range | Performed | Pathologist | | | | | At | Signature | + + + + + + | WBC | 7.74 | 3.80 - 11.00 | [facility] | | | | | K/uL | LABORATORY | | + + + + + + | RBC | 4.40 | 3.70 - 5.10 | [facility] | | | | | M/uL | LABORATORY | | + + + + + + | Hemoglobin | 14.4 | 11.3 - 15.5 | [facility] | | | | | g/dL | LABORATORY | | + + + + + + | Hematocrit | 42.1 | 34.0 - 46.0 % | [facility] | | | | | | LABORATORY | | + + + + + + | MCV | 95.7 | 80.0 - 100.0 fl | [facility] | | | | | | LABORATORY | | + + + + + + | MCH | 32.7 | 27.0 - 34.0 pg | [facility] | | | | | | LABORATORY | | + + + + + + | MCHC | 34.2 | 32.0 - 35.5 | [facility] | | | | | g/dL | LABORATORY | | + + + + + + | RDW-SD | 45.9 | 37 - 53 fl | [facility] | | | | | | LABORATORY | | + + + + + + | Platelet | 241 | 150 - 400 K/uL | [facility] | | | Count | | | LABORATORY | | + + + + + + | MPV | 7.3 | fl | [facility] | | | | | | LABORATORY | | + + + + + + | Diff Type | AUTOMATED | | [facility] | | | | | | LABORATORY | | + + + + + + | % | 51.56 | % | [facility] | | | Neutrophils | | | LABORATORY | | + + + + + + | % | 33.55 | % | [facility] | | | Lymphocytes | | | LABORATORY | | + + + + + + | Monocyte % | 10.53 | % | [facility] | | | | | | LABORATORY | | + + + + + + | Eosinophils | 3.58 | % | [facility] | | | % | | | LABORATORY | | + + + + + + | Basophils % | 0.78 | % | [facility] | | | | | | LABORATORY | | + + + + + + | Neutrophils | 3.99 | 1.90 - 7.40 | [facility] | | | , Absolute | | K/uL | LABORATORY | | + + + + + + | Absolute | 2.60 | 1.00 - 3.90 | [facility] | | | Lymphocytes | | K/uL | LABORATORY | | + + + + + + | Absolute | 0.82 (H) | 0.00 - 0.80 | [facility] | | | Monocytes | | K/uL | LABORATORY | | + + + + + + | Eosinophils | 0.28 | 0.00 - 0.50 | [facility] | | | , Absolute | | K/uL | LABORATORY | | + + + + + + | Basophils, | 0.06Comment: Testing | 0.00 - 0.10 | [facility] | | | Absolute | performed at [facility];[address] | K/uL | LABORATORY | | | | [address];[place], [place] | | | | | | [address] | | | | + + + + + + + + | Specimen | + + | Blood | + + + + + + + | Performing | Address | City/State/Zipcode | Phone Number | | Organization | | | | + + + + + | [facility] | [address] | [place] [address] | [phone] | + + + + + POC Glucose (12/09/2018 5:56 PM PDT) + + + + + + | Component | Value | Ref Range | Performed | Pathologist | | | | | At | Signature | + + + + + + | Glucose, | 94Comment: Testing | 65 - 99 mg/dL | [facility] | | | POC | performed at [facility];[address] | | LABORATORY | | | | [address];[place], [place] | | | | | | [address] | | | | + + + + + + + + | Specimen | + + | | + + + + + + + | Performing | Address | City/State/Zipcode | Phone Number | | Organization | | | | + + + + + | [facility] | [address] | [place] [address] | [phone] | + + + + + MRSA [...] | performed at [facility] | | LABORATORY | | | | [address];[place] | | | | | | [address] | | | | + + + + + + + + | Specimen | + + | Tissue - Both | | anterior nares (body | | structure) | + + + + + + + | Performing | Address | City/State/Zipcode | Phone Number | | Organization | | | | + + + + + | [facility] | [address] | [place] [address] | [phone] | + + + + + documented in this encounter Visit Diagnoses + + | Diagnosis | + + | Acute CVA (cerebrovascular accident) (HCC) - Primary | + + | Chronic hepatitis C without hepatic coma (HCC) | + + | Chronic pain syndrome | + + | Essential hypertension Unspecified essential hypertension | + + | Tobacco abuse Tobacco use disorder | + + | Chronic neck pain Cervicalgia | + + | S/P admn tPA in diff fac w/n last 24 hr bef adm to crnt fac | + + | Diplopia | + + | History of fusion of cervical spine Arthrodesis status | + + | History of fusion of cervical spine Arthrodesis status | + + | Post-traumatic osteoarthritis of right knee Secondary localized osteoarthrosis, lower | | leg | + + | Mixed hyperlipidemia | + + documented in this encounter Administered Medications + +--------+---------+------+------+------+ | Medication Order | MAR | Action | Dose | Rate | Site | | | Action | Date | | | | + +--------+---------+------+------+------+ + +---+ | acetaminophen (TYLENOL) 160 | | | mg/5 mL liquid 650 mg 650 mg, | | | Per NG tube, EVERY 4 HOURS PRN, | | | Pain, Fever, temperature > or | | | equal to 38.0 C (100.4 F), | | | Starting [facility] 12/09/18 at 1731 | | + +---+ | | | + +---+ | acetaminophen (TYLENOL) | | | suppository 650 mg 650 mg, | | | Rectal, EVERY 4 HOURS PRN, Pain, | | | Fever, temperature > or equal to | | | 38.0 C (100.4 F), Starting [facility] | | | 12/09/18 at 1731, If unable to | | | take oral., | | + +---+ | | | + +---+ + +-------+ +--------+---+---+ | acetaminophen (TYLENOL) tablet | Given | 12/11/19 | 650 mg | | | | 650 mg 650 mg, Oral, EVERY 4 | | 19 12:05 | | | | | HOURS PRN, Pain, Fever, | | PM PDT | | | | | temperature > or equal to 38.0 C | | | | | | | (100.4 F), Starting [facility] 12/09/18 | | | | | | | at 1731 | | | | | | + +-------+ +--------+---+---+ +---+---+ | | | +---+---+ + +-------+ +-------+---+---+ | aspirin chewable tablet 81 mg | Given | 12/12/19 | 81 mg | | | | 81 mg, Oral, DAILY, First dose on | | 19 8:18 | | | | | 12/10/18 at 1800 | | AM PDT | | | | + +-------+ +-------+---+---+ +-------+ +-------+---+---+ | Given | 12/11/19 | 81 mg | | | | | 19 6:51 | | | | | | PM PDT | | | | +-------+ +-------+---+---+ +---+---+ | | | +---+---+ + +-------+ +-------+---+---+ | atorvaSTATin (LIPITOR) tablet | Given | 12/11/19 | 80 mg | | | | 80 mg 80 mg, Oral, DAILY, First | | 19 8:22 | | | | | dose on [facility] 12/09/18 at 2100 | | PM PDT | | | | + +-------+ +-------+---+---+ +-------+ +-------+---+---+ | Given | 12/10/19 | 80 mg | | | | | 19 8:15 | | | | | | PM PDT | | | | +-------+ +-------+---+---+ + +---+ | | | + +---+ | bisacodyl (DULCOLAX) | | | suppository 10 mg 10 mg, Rectal, | | | DAILY PRN, Constipation, | | | Starting [facility] 12/09/18 at 1731, If | | | all other bowel medications | | | ineffective x 24 hours or not | | | ordered., | | + +---+ | | | + +---+ | docusate sodium (COLACE) | | | capsule 100 mg 100 mg, Oral, 2 | | | TIMES DAILY PRN, Constipation, | | | Starting [facility] 12/09/18 at 1731, | | | 1st line agent for constipation | | | relief., | | + +---+ | | | + +---+ + +-------+ +-------+---+---+ | escitalopram (LEXAPRO) tablet | Given | 12/12/19 | 10 mg | | | | 10 mg 10 mg, Oral, DAILY, First | | 19 8:18 | | | | | dose on 12/11/18 at 0900 | | AM PDT | | | | + +-------+ +-------+---+---+ +---+---+ | | | +---+---+ + +-------+ +-------+---+---+ | labetalol (TRANDATE) 5 mg/mL | Given | 12/12/19 | 10 mg | | | | injection 10 mg 10 mg, | | 19 2:59 | | | | | Intravenous, EVERY 4 HOURS PRN, | | AM PDT | | | | | For SBP greater than 180 and DBP | | | | | | | greater than 105., Starting Fri | | | | | | | 12/10/18 at 1746, Do not give if | | | | | | | HR < 60. NOT TO EXCEED 100 mg IN | | | | | | | 1 HOUR. First line | | | | | | | antihypertensive therapy to | | | | | | | maintain blood pressure. Start | | | | | | | with 10 mg IV dose X 1. Check | | | | | | | the blood pressure 10 minutes | | | | | | | after giving the dose. If blood | | | | | | | pressure remains above the goal, | | | | | | | repeat with 20 mg dose then check | | | | | | | blood pressure again in 10 | | | | | | | minutes after giving the second | | | | | | | dose. If goal blood pressure has | | | | | | | not been attained after 2 doses | | | | | | | of labetalol and 20 minutes have | | | | | | | passed, then notify provider., | | | | | | + +-------+ +-------+---+---+ +-------+ +-------+---+---+ | Given | 12/11/19 | 10 mg | | | | | 19 7:36 | | | | | | PM PDT | | | | +-------+ +-------+---+---+ +---+---+ | | | +---+---+ + +-------+ +--------+---+---+ | lurasidone (LATUDA) tablet 120 | Given | 12/11/19 | 120 mg | | | | mg 120 mg, Oral, DAILY, First | | 19 6:52 | | | | | dose on Thu12/10/18 at 1845, Give | | PM PDT | | | | | with food (350 calories or | | | | | | | more)., | | | | | | + +-------+ +--------+---+---+ + +---+ | | | + +---+ | magnesium hydroxide (MILK OF | | | MAGNESIA) 400 mg/5 mL suspension | | | 30 mL 30 mL, Oral, NIGHTLY PRN, | | | Constipation, Starting [facility] | | | 12/09/18 at 1731, If docusate, | | | senna, and polyethylene glycol | | | ineffective x 24 hours or not | | | ordered, | | + +---+ | | | + +---+ | magnesium oxide (MAG-OX) tablet | | | 800 mg 800 mg, Oral, DAILY PRN, | | | Per protocol, Starting Fri | | | 12/10/18 at 1747, NON-ICU Protocol | | | Replace magnesium once per day | | | based on morning magnesium level. | | | Use scale below to determine | | | dose. If further replacement is | | | required after this morning dose | | | of magnesium, notify provider | | | Protocol NOT recommended if Scr > | | | 1.8, dialysis patients or CrCl < | | | 50 mL/min Magnesium = 1-1.9 | | | mg/dL Give magnesium oxide 800 | | | mg PO x1 * Check magnesium in | | | AM If unable to tolerate po or | | | magnesium < 1mg/dL use IV | | | magnesium replacement. Give PO or | | | IV but never both. Maximum | | | recommended infusion rate = 1 | | | gram/hour., | | + +---+ | | | + +---+ + +---------+ +-----+ +---+ | magnesium sulfate 2 g/50 mL | New Bag | 12/10/19 | 2 g | 25 mL/hr | | | IVPB 2 g 2 g, Intravenous, | | 19 8:16 | | | | | Administer over 120 Minutes, PRN, | | PM PDT | | | | | Per protocol, Starting [facility] | | | | | | | 12/09/18 at 1737, ICU Use | | | | | | | Only Protocol NOT recommended | | | | | | | if Scr > 1.8, dialysis patients | | | | | | | or CrCl < 50 mL/min Magnesium = | | | | | | | 1-1.9 mg/dL Give magnesium | | | | | | | sulfate 2 g IV x1 * Check | | | | | | | magnesium 2 hours after infusion | | | | | | | is completed If magnesium still | | | | | | | < 1.9 mg/dL,replace as indicated | | | | | | | per protocol Maximum | | | | | | | recommended infusion rate = 1 | | | | | | | gram/hour., | | | | | | + +---------+ +-----+ +---+ + +---+ | | | + +---+ | magnesium sulfate 2 g/50 mL | | | IVPB 2 g 2 g, Intravenous, | | | Administer over 120 Minutes, | | | DAILY PRN, Per protocol, Starting | | | Thu12/10/18 at 1747, NON-ICU | | | Protocol Replace magnesium once | | | per day based on morning | | | magnesium level. Use scale below | | | to determine dose. If further | | | replacement is required after | | | this morning dose of magnesium, | | | notify provider Protocol NOT | | | recommended if Scr > 1.8, | | | dialysis patients or CrCl < 50 | | | mL/min Magnesium = 1-1.9 mg/dL | | | Give magnesium sulfate 2 g IV x1 | | | * Check magnesium 2 hours | | | after infusion is completed If | | | magnesium still < 1.9 mg/dL, | | | contact provider for further | | | instruction. Give PO or IV but | | | never both. Maximum recommended | | | infusion rate = 1 gram/hour., | | + +---+ | | | + +---+ | magnesium sulfate 4 g/100 mL | | | IVPB 4 g 4 g, Intravenous, | | | Administer over 240 Minutes, | | | DAILY PRN, Per protocol, Starting | | | Thu12/10/18 at 1747, NON-ICU | | | Protocol Replace magnesium once | | | per day based on morning | | | magnesium level. Use scale below | | | to determine dose. If further | | | replacement is required after | | | this morning dose of magnesium, | | | notify provider Protocol NOT | | | recommended if Scr > 1.8, | | | dialysis patients or CrCl < 50 | | | mL/min Magnesium < 1 mg/dL | | | Give magnesium sulfate 4 g IV x1 | | | * Check magnesium 2 hours | | | after infusion is completed If | | | magnesium still < 1.9 mg/dL, | | | contact provider for further | | | instruction. Give PO or IV but | | | never both. Maximum recommended | | | infusion rate = 1 gram/hour., | | + +---+ | | | + +---+ | ondansetron (ZOFRAN ODT) | | | disintegrating tablet 4 mg 4 mg, | | | Oral, EVERY 6 HOURS PRN, Nausea, | | | Vomiting, Starting Sofie 12/09/18 | | | at 1731, First line agent, | | + +---+ | | | + +---+ | ondansetron (ZOFRAN) injection | | | 4 mg 4 mg, Intravenous, EVERY 6 | | | HOURS PRN, Nausea, Vomiting, | | | Starting Sofie 12/09/18 at 1731, | | | First line agent, | | + +---+ | | | + +---+ | polyethylene glycol (MIRALAX) | | | powder 17 g 17 g, Oral, DAILY | | | PRN, Constipation, Starting Sofie | | | 12/09/18 at 1731, If docusate and | | | senna ineffective or not | | | ordered., | | + +---+ | | | + +---+ | potassium chloride (KLOR-CON) | | | ER tablet 20-40 mEq 20-40 mEq, | | | Oral, DAILY PRN, Per protocol, | | | Starting Thu12/10/18 at 1747, | | | NON-ICU Protocol Replace | | | potassium once per day based on | | | morning potassium level. Use | | | scale below to determine dose. If | | | further replacement is required | | | after this morning dose of | | | potassium, notify provider | | | Protocol NOT recommended if Scr > | | | 1.8, dialysis patients or CrCl < | | | 50 mL/min [K+] =3.6 - 4 mEql/L | | | Give 20 mEq KCl PO x 1 dose | | | [K+] 3.0 - 3.5 mEql/L Give 40 | | | mEq KCl PO x 1 dose [K+] < 3.0 | | | mEq/L Notify provider * | | | Recheck K+ 4 hours after | | | replacement is done. Give tablet | | | or liquid but never both. If | | | repeat K is still < 3.5, contact | | | provider for further instruction. | | | May take with food to decrease | | | GI upset., | | + +---+ | | | + +---+ | potassium chloride (KLOR-CON) | | | packet 20-40 mEq 20-40 mEq, Per | | | G Tube, DAILY PRN, Per Protocol, | | | Starting Thu12/10/18 at 1747, | | | NON-ICU Protocol Replace | | | potassium once per day based on | | | morning potassium level. Use | | | scale below to determine dose. If | | | further replacement is required | | | after this morning dose of | | | potassium, notify provider | | | Protocol NOT recommended if Scr > | | | 1.8, dialysis patients or CrCl < | | | 50 mL/min [K+] =3.6 - 4 mEql/L | | | Give 20 mEq KCl PO x 1 dose | | | [K+] 3.0 - 3.5 mEql/L Give 40 | | | mEq KCl PO x 1 dose [K+] < 3.0 | | | mEq/L Notify provider * | | | Recheck K+ 4 hours after | | | replacement is done. Give tablet | | | or liquid but never both. If | | | repeat K is still < 3.5, contact | | | provider for further | | | instruction., | | + +---+ | | | + +---+ + +---------+ +--------+-------+---+ | potassium chloride 40 mEq in | New Bag | 12/10/19 | 40 mEq | 130 | | | sodium chloride 0.9% 500 mL IVPB | | 19 8:24 | | mL/hr | | | 40 mEq, Intravenous, Administer | | PM PDT | | | | | over 4 Hours, PRN, Per protocol, | | | | | | | Starting [facility] 12/09/18 at 1738, | | | | | | | ICU Use Only Protocol NOT | | | | | | | recommended if Scr > 1.8, | | | | | | | dialysis patients or CrCl < 50 | | | | | | | mL/min [K+] =3.6 - 4 mEql/L | | | | | | | Give 40 mEq KCl IV x 1 dose * | | | | | | | Obtain K+ level 2 hours after | | | | | | | replacement is done. If K+ | | | | | | | still < 3.6 mEq/L, repeat | | | | | | | replacement as indicated per | | | | | | | protocol. Give either tablet, | | | | | | | liquid, or IV but never more than | | | | | | | one form., | | | | | | + +---------+ +--------+-------+---+ +---+---+ | | | +---+---+ + +-------+ +-------+---+---+ | propranolol (INDERAL) tablet 20 | Given | 12/12/19 | 20 mg | | | | mg 20 mg, Oral, 2 TIMES DAILY, | | 19 8:18 | | | | | First dose on Thu12/10/18 at 2100 | | AM PDT | | | | + +-------+ +-------+---+---+ +-------+ +-------+---+---+ | Given | 12/11/19 | 20 mg | | | | | 19 7:35 | | | | | | PM PDT | | | | +-------+ +-------+---+---+ +---+---+ | | | +---+---+ + +-------+ +--------+---+---+ | QUEtiapine (SEROquel) tablet | Given | 12/11/19 | 200 mg | | | | 200 mg 200 mg, Oral, NIGHTLY, | | 19 8:23 | | | | | First dose on Thu12/10/18 at 2100 | | PM PDT | | | | + +-------+ +--------+---+---+ + +---+ | | | + +---+ | senna (SENOKOT) tablet 8.6 mg | | | 8.6 mg, Oral, 2 TIMES DAILY PRN, | | | Constipation, Starting Sofie | | | 12/09/18 at 1731, If docusate | | | ineffective or not ordered., | | + +---+ | | | + +---+ documented in this encounter
--- OUTSIDE RECORDS SUMMARY | ~2019-01-22 | XMS | Encounter Summary ---
Demographics + + + | Address | [address] | | | [place] [address] | + + + | Home Phone | | + + + | Preferred Language | Unknown | + + + | Marital Status | | + + + | Jew Affiliation | Unknown | + + + | Race | Unknown | + + + | Ethnic Group | Unknown | + + + Author + + + | Author | [facility] | | | and [place] | + + + | Organization | [facility] | | [...] Team Providers + +------+ + | Care Parachute/Combatant Diver Officer Name | Role | Phone | + +------+ + PCP | Unavailable | + +------+ + Encounter Details +--------+ + + + + | Date | Type | Department | Care Team | Description | +--------+ + + + + | 05/27/ | Hospital | [facility] | Conversion | Back pain, | | 2017 | Encounter | CONVERSION [address] | Transaction, | unspecified back | | | | [address] | Provider Unknown | location, | | | | [place], [place] | [phone] | unspecified back | | | | [address] | (Fax) | pain laterality, | | [...] | + +--------+ + + + | XR THORACIC SPINE 2 | Routin | 05/26/2016 | | Results for this | | VW | e | 9:19 AM | | procedure are in the | | | | PDT | | results section. | + +--------+ + + + documented in this encounter Results XR Thoracic Spine 2 Vw (05/26/2016 9:19 AM PDT) + + | [...]
--- OUTSIDE RECORDS SUMMARY | ~2019-01-22 | XMS | Encounter Summary ---
Demographics + + + | Address | [address] | | | [place] [address] | + + + | Home Phone | | + + + | Preferred Language | Unknown | + + + | Marital Status | | + + + | Roman Catholic Affiliation | Unknown | + + + [...] Team Providers + +------+ + | Care Exhauster Name | Role | Phone | + [...] Provider Unknown | | | | | [place], [place] | [phone] | | | | | [address] | | | | | | [phone] | | | +--------+ + + + [...]
--- OUTSIDE RECORDS SUMMARY | ~2019-01-22 | XMS | Encounter Summary ---
Demographics + + + | Address | [address] | | | [place] [address] | + + + | Home Phone | | + + + | Preferred Language | Unknown | + + + | Marital Status | | + + + | Jew Affiliation | Unknown | + + + | Race | Unknown | + + + | Ethnic Group | Unknown | + + + Author + + + | Author | [facility] | | | and [place] | + + + | Organization | [facility] | | [...] Team Providers + +------+ + | Care Electronic Repair Troubleshooter Name | Role | Phone | + [...] | | | | [place] | [phone] | | | | | [address] | | | | | | [phone] | | | +--------+ + + + [...] + + | Hemant Medley - 09/23/2018 7:31 PM PDT This is a non-reportable procedure | | without a radiologist report and isused for image storage only | + + documented in this encounter Visit Diagnoses + + | Diagnosis | + + | Unknown cause of injury Unspecified accident | + + documented in this encounter"
--- OUTSIDE RECORDS SUMMARY | ~2019-01-22 | XMS | Encounter Summary ---
Demographics + + + | Address | [address] | | | [place] [address] | + + + | Home Phone | | + + + | Preferred Language | Unknown | + + + | Marital Status | | + + + | Pentecostal Affiliation | Unknown | + + + | Race | Unknown | + + + | Ethnic Group | Unknown | + + + Author + + + | Author | [facility] | | | and [place] | + + + | Organization | [facility] | | [...] Team Providers + +------+ + | Care Shade Classifier Name | Role | Phone | + +------+ + PCP | Unavailable | + +------+ + Encounter Details +--------+ + + + + | Date | Type | Department | Care Team | Description | +--------+ + + + + | 03/06/ | Hospital | [facility] | Conversion | | | 2018 | Encounter | MEDICAL CENTER | Transaction, | | | | | OUTPATIENT | Provider Unknown | | | | | [address] | [phone] | | | | | [address] | | | | | | [place], [place] | | | | | | [address] | | | | | | [phone] | | | +--------+ + + + [...]
--- OUTSIDE RECORDS SUMMARY | ~2019-01-22 | XMS | Encounter Summary ---
Demographics + + + | Address | [address] | | | [place] [address] | + + + | Home Phone | | + + + | Preferred Language | Unknown | + + + | Marital Status | | + + + | Mandaen Affiliation | Unknown | + + + | Race | Unknown | + + + | Ethnic Group | Unknown | + + + Author + + + | Author | [facility] | | | and [place] | + + + | Organization | [facility] | | [...] Team Providers + +------+ + | Care Shuttler Car Name | Role | Phone | + +------+ + | Ben Tirado MD | PCP | | + +------+ + Encounter Details +--------+ + + + + | Date | Type | Department | Care Team | Description | +--------+ + + + + | 09/19/ | Orders Only | [facility] | Conversion | | | 2017 | | CONVERSION [address] | Transaction, | | | | | [address] | Provider Unknown | | | | | [place], [place] | [phone] | | | | | [address] | | | | | | [phone] | | | +--------+ + + + [...]
--- OUTSIDE RECORDS SUMMARY | ~2019-01-22 | XMS | Encounter Summary ---
Demographics + + + | Address | [address] | | | [place] [address] | + + + | Home Phone | | + + + | Preferred Language | Unknown | + + + | Marital Status | | + + + | Orthodox Affiliation | Unknown | + + + [...] Team Providers + +------+ + | Care School Superintendent Name | Role | Phone | + +------+ + | No, Physician | PCP | Unavailable | + +------+ + Encounter Details +--------+ + + + + | Date | Type | Department | Care Team | Description | +--------+ + + + + | 12/01/ | Hospital | [facility] | Conversion | | | 2018 | Encounter | MEDICAL CENTER | Transaction, | | | | | OUTPATIENT | Provider Unknown | | | | | [address] | [phone] | | | | | [address] | | | | | | [place] | | | | | | [address] | | | | | | [phone] | | | +--------+ + + + [...]
--- OUTSIDE RECORDS SUMMARY | ~2019-01-22 | XMS | Encounter Summary ---
Demographics + + + | Address | [address] | | | [place] [address] | + + + | Home Phone | | + + + | Preferred Language | Unknown | + + + | Marital Status | | + + + | Yazidism Affiliation | Unknown | + + + [...] Team Providers + +------+ + | Care Mechanical Maintenance Technician Name | Role | Phone | + +------+ + PCP | Unavailable | + +------+ + Encounter Details +--------+ + + + + | Date | Type | Department | Care Team | Description | +--------+ + + + + | 05/12/ | Hospital | [facility] | Conversion | | | 2017 | Encounter | MEDICAL CENTER | Transaction, | | | | | OUTPATIENT | Provider Unknown | | | | | [address] | [phone] | | | | | [address] | | | | | | [place], [place] | | | | | | [address] | | | | | | [phone] | | | +--------+ + + + [...]
--- OUTSIDE RECORDS SUMMARY | ~2019-01-22 | XMS | Encounter Summary ---
Demographics + + + | Address | [address] | | | [place] [address] | + + + | Home Phone | | + + + | Preferred Language | Unknown | + + + | Marital Status | | + + + | Denominational Affiliation | Unknown | + + + | Race | Unknown | + + + | Ethnic Group | Unknown | + + + Author + + + | Author | [facility] | | | and [place] | + + + | Organization | [facility] | | [...] Team Providers + +------+ + | Care Steel Rule Die Maker Name | Role | Phone | + +------+ + PCP | Unavailable | + +------+ + Encounter Details +--------+ + + + + | Date | Type | Department | Care Team | Description | +--------+ + + + + | 09/01/ | Hospital | [facility] | Conversion | | | 2017 | Encounter | MEDICAL CENTER | Transaction, | | | | | OUTPATIENT | Provider Unknown | | | | | [address] | [phone] | | | | | [address] | | | | | | [place], [place] | | | | | | [address] | | | | | | [phone] | | | +--------+ + + + [...]
--- OUTSIDE RECORDS SUMMARY | ~2019-01-22 | XMS | Encounter Summary ---
Demographics + + + | Address | [address] | | | [place] [address] | + + + | Home Phone | | + + + | Preferred Language | Unknown | + + + | Marital Status | | + + + | Hoahaoism Affiliation | Unknown | + + + | Race | Unknown | + + + | Ethnic Group | Unknown | + + + Author + + + | Author | [facility] | | | and [place] | + + + | Organization | [facility] | | [...] Team Providers + +------+ + | Care Frothing Machine Operator Name | Role | Phone | + +------+ + | No, Physician | PCP | Unavailable | + +------+ + Encounter Details +--------+ + + + + | Date | Type | Department | Care Team | Description | +--------+ + + + + | 06/05/ | Hospital | [facility] | Conversion | | | 2018 | Encounter | MEDICAL CENTER | Transaction, | | | | | OUTPATIENT | Provider Unknown | | | | | [address] | [phone] | | | | | [address] | | | | | | [place] | | | | | | [address] | | | | | | [phone] | | | +--------+ + + + [...]
--- OUTSIDE RECORDS SUMMARY | ~2019-01-22 | XMS | Encounter Summary ---
Demographics + + + | Address | [address] | | | [place] [address] | + + + | Home Phone | | + + + | Preferred Language | Unknown | + + + | Marital Status | | + + + | Spiritism Affiliation | Unknown | + + + | Race | Unknown | + + + | Ethnic Group | Unknown | + + + Author + + + | Author | [facility] | | | and [place] | + + + | Organization | [facility] | | | [...] Team Providers + +------+ + | Care Broadcast Designer Name | Role | Phone | + +------+ + | No, Physician | PCP | Unavailable | + +------+ + Encounter Details +--------+ + + + + | Date | Type | Department | Care Team | Description | +--------+ + + + + | 06/22/ | Hospital | [facility] | Conversion | | | 2019 | Encounter | MEDICAL CENTER | Transaction, | | | | | OUTPATIENT | Provider Unknown | | | | | [address] | [phone] | | | | | [address] | | | | | | [place] | | | | | | [address] | | | | | | [phone] | | | +--------+ + + + [...]
--- OUTSIDE RECORDS SUMMARY | ~2019-01-22 | XMS | Encounter Summary ---
Demographics + + + | Address | [address] | | | [place] [address] | + + + | Home Phone | | + + + | Preferred Language | Unknown | + + + | Marital Status | | + + + | Jew Affiliation | Unknown | + + + | Race | Unknown | + + + | Ethnic Group | Unknown | + + + Author + + + | Author | [facility] | | | and [place] | + + + | Organization | [facility] | | | and [...] Team Providers + +------+ + | Care Anode Adjuster Name | Role | Phone | + +------+ + PCP | Unavailable | + +------+ + Encounter Details +--------+ + + + + | Date | Type | Department | Care Team | Description | +--------+ + + + + | 12/05/ | Hospital | [facility] | Conversion | | | 2017 | Encounter | MEDICAL CENTER | Transaction, | | | | | OUTPATIENT | Provider Unknown | | | | | [address] | [phone] | | | | | [address] | | | | | | [place], [place] | | | | | | [address] | | | | | | [phone] | | | +--------+ + + + [...] 1220 Date of Service: 12/05/161217 Status: Signed Wind Operations Manager: Syeda Beverly RN (Registered Nurse) Patient present [...]
--- OUTSIDE RECORDS SUMMARY | ~2019-01-22 | XMS | Encounter Summary ---
Demographics + + + | Address | [address] | | | [place] [address] | + + + | Home Phone | | + + + | Preferred Language | Unknown | + + + | Marital Status | | + + + | Latter-Day Affiliation | Unknown | + + + [...] Team Providers + +------+ + | Care Train Operations Supervisor Name | Role | Phone | + +------+ + PCP | Unavailable | + +------+ + Encounter Details +--------+ + + + + | Date | Type | Department | Care Team | Description | +--------+ + + + + | 09/18/ | Hospital | [facility] | Conversion | | | 2016 | Encounter | MEDICAL CENTER | Transaction, | | | | | OUTPATIENT | Provider Unknown | | | | | [address] | [phone] | | | | | [address] | | | | | | [place], [place] | | | | | | [address] | | | | | | [phone] | | | +--------+ + + + [...]
--- OUTSIDE RECORDS SUMMARY | ~2019-01-22 | XMS | Encounter Summary ---
Demographics + + + | Address | [address] | | | [place] [address] | + + + | Home Phone | | + + + | Preferred Language | Unknown | + + + | Marital Status | | + + + | Yazidi Affiliation | Unknown | + + + | Race | Unknown | + + + | Ethnic Group | Unknown | + + + Author + + + | Author | [facility] | | | and [place] | + + + | Organization | [facility] | | [...] Team Providers + +------+ + | Care Nickel Operator Name | Role | Phone | + +------+ + | No, Physician | PCP | Unavailable | + +------+ + Encounter Details +--------+ + + + + | Date | Type | Department | Care Team | Description | +--------+ + + + + | 09/01/ | Hospital | [facility] | Conversion | | | 2019 | Encounter | MEDICAL CENTER | Transaction, | | | | | OUTPATIENT | Provider Unknown | | | | | [address] | [phone] | | | | | [address] | | | | | | [place] | | | | | | [address] | | | | | | [phone] | | | +--------+ + + + [...]
--- OUTSIDE RECORDS SUMMARY | ~2019-01-22 | XMS | Clinical Summary ---
Demographics + + + | Address | [address] | | | [place] [address] | + + + | Home Phone | | + + + | Preferred Language | Unknown | + + + | Marital Status | Single | + + + | Shinto Affiliation | Unknown | + + + | Race | Unknown | + + + | Ethnic Group | Unknown | + + + Author + + + | Author | [employer] (Historical as of | | | 09-25-18) | + + + | Organization | [facility] [employer] (Historical as of | | | 09-25-18) [...] Providers + +------+ + | Care Medical Staff Physician Name | Role | Phone | + [...] +------+-------+ + | MEDICARE | MEDICA | [id number] | | | [address] | | | [place] | | | | [place] [address] | | | IP-OP | | | | | + +--------+ +------+-------+ + | MEDICAID | [place] | [id number] | | | [address] | | | [place] | | | | [place] | | | [place] | | | | [address] | | | MANAGER HEMATOLOGY | | | | | + +--------+ [...] GAY | al/Fam | | 1955 | [phone] DELIVERY [place], | | | vianca | | | 1988 | [place] [address] | + +--------+ +--------+ + +
--- OUTSIDE RECORDS SUMMARY | ~2019-01-22 | XMS | Encounter Summary ---
Demographics + + + | Address | [address] | | | [place] [address] | + + + | Home Phone | | + + + | Preferred Language | Unknown | + + + | Marital Status | | + + + | Jainism Affiliation | Unknown | + + + | Race | Unknown | + + + | Ethnic Group | Unknown | + + + Author + + + | Author | [facility] | | | and [place] | + + + | Organization | [facility] | | | [...] Team Providers + +------+ + | Care Eye Dropper Assembler Name | Role | Phone | + +------+ + | No, Physician | PCP | Unavailable | + +------+ + Encounter Details +--------+ + + + + | Date | Type | Department | Care Team | Description | +--------+ + + + + | 09/01/ | Hospital | [facility] | Conversion | 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
--- OUTSIDE RECORDS SUMMARY | ~2019-01-22 | XMS | Encounter Summary ---
Demographics + + + | Address | [address] | | | [place] [address] | + + + | Home Phone | | + + + | Preferred Language | Unknown | + + + | Marital Status | | + + + | Advent Affiliation | Unknown | + + + | Race | Unknown | + + + | Ethnic Group | Unknown | + + + Author + + + | Author | [facility] | | | and [place] | + + + | Organization | [facility] | | | [...] Team Providers + +------+ + | Care Content Analyst Name | Role | Phone | + +------+ + PCP | Unavailable | + +------+ + Encounter Details +--------+ + + + + | Date | Type | Department | Care Team | Description | +--------+ + + + + | 09/30/ | Hospital | [facility] | Conversion | | | 2016 | Encounter | MEDICAL CENTER | Transaction, | | | | | OUTPATIENT | Provider Unknown | | | | | [address] | [phone] | | | | | [address] | | | | | | [place], [place] | | | | | | [address] | | | | | | [phone] | | | +--------+ + + + [...]
[2019-01-22] MEDS ORDERED: LATUDA120 MG PO (14:24)
[2019-01-22] MEDS ORDERED: QUETIAPINE FUM100 MG PO (14:24)
[2019-01-22] MEDS ORDERED: ESCITALOPRAM OX10 MG PO (14:24)
[2019-01-22] MEDS ORDERED: SEROQUEL200 MG PO (15:34)
== END 2019-01-22 16:16 | disposition home or self-care (01) ==
LOC: ED 14:10
DX: R51 Headache (principal); F17.200 Nicotine dependence, unspecified, uncomplicated; Z88.0 Allergy status to penicillin; Z91.030 Bee allergy status; Z79.899 Other long term (current) drug therapy
CPT/HCPCS: 96372; 99283-25; J1885

== ENCOUNTER 2019-02-06 10:11 | Emergency (ER) | payer MEDICARE, OTHER ==
[~2019-02-06] VITALS: Ht 172.7 cm; Wt 65.9 kg
--- OUTSIDE RECORDS SUMMARY | ~2019-02-06 | XMS | Encounter Summary ---
Demographics + + + | Address | [address] | | | [place] [address] | + + + | Home Phone | | + + + | Preferred Language | Unknown | + + + | Marital Status | | + + + | Nondenominational Affiliation | Unknown | + + + | Race | Unknown | + + + | Ethnic Group | Unknown | + + + Author + + + | Author | [facility] | | | and [place] | + + + | Organization | [facility] | | | and [...] Team Providers + +------+ + | Care Career Development Associate Name | Role | Phone | + +------+ + | No, Physician | PCP | Unavailable | + +------+ + Encounter Details +--------+ + + + + | Date | Type | Department | Care Team | Description | +--------+ + + + + | 06/22/ | Hospital | [facility] | Conversion | | | 2019 | Encounter | MEDICAL CENTER | Transaction, | | | | | OUTPATIENT | Provider Unknown | | | | | [address] | [phone] | | | | | [address] | | | | | | [place] | | | | | | [address] | | | | | | [phone] | | | +--------+ + + + + Social History + +-------+ +--------+------+ | Tobacco Use | Types | Packs/Day | Years | Date | | | | | Used | | + +-------+ +--------+------+ | Current Every Day | | | | | | Smoker | | | | | + +-------+ [...] + + + | Blood Pressure | 187/116 | 06/22/2018 1:35 PM | | | | | PDT | | + + + + + | Pulse | 88 | 06/22/2018 1:35 PM | | | | | PDT | | + + + + + | Temperature | 37.1 C (98.8 F) | 06/22/2018 1:35 PM | | | | | PDT | | + + + + + | Respiratory Rate | 20 | 06/22/2018 1:35 PM | | | | | PDT | | + + + + + | Oxygen Saturation | - | - | | + + + + + | Inhaled Oxygen | - | - | | | Concentration | | | | + + + + + | Weight | 49 kg (108 lb 0.5 | 06/22/2018 1:35 PM | | | | oz) | PDT | | + + + + + | Height | 172.7 cm (5' 8") | 06/22/2018 1:35 PM | | | | | PDT | | + + + + + | Body Mass Index | 16.43 | 06/22/2018 1:35 PM | | | | | PDT | | + + + + + [...] Visit Diagnoses Not on filedocumented in this encounter
--- OUTSIDE RECORDS SUMMARY | ~2019-02-06 | XMS | Encounter Summary ---
Demographics + + + | Address | [address] | | | [place] [address] | + + + | Home Phone | | + + + | Preferred Language | Unknown | + + + | Marital Status | | + + + | Nondenominational Affiliation | Unknown | + + + | Race | Unknown | + + + | Ethnic Group | Unknown | + + + Author + + + | Author | [facility] | | | and [place] | + + + | Organization | [facility] | | | [...] Team Providers + +------+ + | Care Rack Loader Name | Role | Phone | + [...] Provider Unknown | | | | | [place], [place] | [phone] | | | | | [address] | | | | | | [phone] | | | +--------+ + + + [...]
--- OUTSIDE RECORDS SUMMARY | ~2019-02-06 | XMS | Encounter Summary ---
Demographics + + + | Address | [address] | | | [place] [address] | + + + | Home Phone | | + + + | Preferred Language | Unknown | + + + | Marital Status | | + + + | Mandaen Affiliation | Unknown | + + + | Race | Unknown | + + + | Ethnic Group | Unknown | + + + Author + + + | Author | [facility] | | | and [place] | + + + | Organization | [facility] | | | [...] Team Providers + +------+ + | Care Manufacturing Operations Manager Name | Role | Phone | + +------+ + | No, Physician | PCP | Unavailable | + +------+ + Encounter Details +--------+ + + + + | Date | Type | Department | Care Team | Description | +--------+ + + + + | 09/01/ | Hospital | [facility] | Conversion | | | 2018 | Encounter | MEDICAL CENTER | Transaction, | | | | | OUTPATIENT | Provider Unknown | | | | | PROCEDURES [address] | [phone] | | | | | [address] | | | | | | [place] | | | | | | [address] | | | | | | [phone] | | | +--------+ + + + [...] + + + | Blood Pressure | 135/82 | 09/01/2017 12:16 PM | | | | | PDT | | + + + + + | Pulse | 63 | 09/01/2017 12:16 PM | | | | | PDT | | + + + + + | Temperature | 36.2 C (97.1 F) | 09/01/2017 12:16 PM | | | | | PDT | | + + + + + | Respiratory Rate | 20 | 09/01/2017 12:16 PM | | | | | PDT [...] + + + +---------+ + + | busPIRone (BUSPAR) | Take 1 tablet by | 90 | 1 | 09/20/19 | | | 15 mg tablet | mouth 3 (three) | tablet | | 17 | 8 | | | times daily. | | | | | + + [...] + + +---------+ + + | | Take 1 tablet by | 30 | 11 | 09/20/19 | | | triamterene-hydrochl | mouth daily. | tablet | | 17 | 8 | | orothiazide | | | | | | | (MAXZIDE-25) 37.5-25 | | | | | | | mg per tablet | | | | | | + + + +---------+ + + documented as of this encounter Progress Notes Conversion Transaction, Provider Unknown - 09/01/2017 11:59 PM PDTFormatting of this note m ight be different from the original. Nurse Progress Note by Syeda Beverly RN at 09/01/17 1896 Author: Syeda Beverly RN Service: (none) Author Type: Registered Nurse Filed: 09/04/17 0957 Date of Service: 09/01/172358 Status: Signed Boiler Technician: Syeda Beverly RN (Registered Nurse) Received a phone call from [facility] reporting symptoms of hives the size of silver dollars over entire body and scratchy throat with trouble speaking. Informed her of the risk to air way from severe allergic reactions. I advised her to get off the phone and go to urgent car e or emergency department right away. If she can't get a ride she should call an ambulance and get checked out right away. If she has benadryl and if she is not allergic she could keke e some also. docume nted in this encounter Plan of Treatment Not on filedocumented as of this encounter Visit Diagnoses Not on filedocumented in this encounter"
--- OUTSIDE RECORDS SUMMARY | ~2019-02-06 | XMS | Encounter Summary ---
Demographics + + + | Address | [address] | | | [place] [address] | + + + | Home Phone | | + + + | Preferred Language | Unknown | + + + | Marital Status | | + + + | Amish Affiliation | Unknown | + + + | Race | Unknown | + + + | Ethnic Group | Unknown | + + + Author + + + | Author | [facility] | | | and [place] | + + + | Organization | [facility] | | | and [...] Team Providers + +------+ + | Care Mix Maker Name | Role | Phone | + +------+ + PCP | Unavailable | + +------+ + Encounter Details +--------+ + + + + | Date | Type | Department | Care Team | Description | +--------+ + + + + | 02/11/ | Hospital | [facility] | Conversion | | | 2017 | Encounter | MEDICAL CENTER | Transaction, | | | | | OUTPATIENT | Provider Unknown | | | | | PROCEDURES [address] | [phone] | | | | | [address] | | | | | | [place], [place] | | | | | | [address] | | | | | | [phone] | | | +--------+ + + + [...] + + + | Blood Pressure | 124/81 | 02/12/2016 3:45 PM | | | | | PST | | + + + + + | Pulse | 57 | 02/12/2016 3:45 PM | | | | | PST | | + + + + + | Temperature | 36.4 C (97.6 F) | 02/12/2016 3:45 PM | | | | | PST | | + + + + + | Respiratory Rate | 16 | 02/12/2016 3:45 PM | | | | | PST | [...]
--- OUTSIDE RECORDS SUMMARY | ~2019-02-06 | XMS | Encounter Summary ---
Demographics + + + | Address | [address] | | | [place] [address] | + + + | Home Phone | | + + + | Preferred Language | Unknown | + + + | Marital Status | | + + + | Episcopalian Affiliation | Unknown | + + + | Race | Unknown | + + + | Ethnic Group | Unknown | + + + Author + + + | Author | [facility] | | | and [place] | + + + | Organization | [facility] | | | [...] Team Providers + +------+ + | Care Senior Medical Director Name | Role | Phone | + +------+ + | No, Physician | PCP | Unavailable | + +------+ + Encounter Details +--------+ + + + + | Date | Type | Department | Care Team | Description | +--------+ + + + + | 09/01/ | Hospital | [facility] | Conversion | Post-traumatic | | 2019 | Encounter | MEDICAL CENTER MRI | Transaction, | osteoarthritis of | | | | [address] | Provider Unknown | one knee, right; | | | | [place] | [phone] | Sprain of anterior | | | | [address] | | cruciate ligament of | | | | [phone] | | right knee, initial | | | | | | encounter | +--------+ + + + + Social [...] + + documented as of this encounter Medications at Time of Discharge [...] + + + +---------+ + + | mirtazapine | Take 1 tablet by | | 0 | 08/29/19 | | | (REMERON) 15 MG | mouth nightly. | | | 19 | 9 | | tablet | | | | | | + + + +---------+ + + documented as of this encounter Plan of Treatment Not on filedocumented as of this encounter Procedures + +--------+ + + + | Procedure Name | Priori | Date/Time | Associated Diagnosis | Comments | | | ty | | | | + +--------+ + + + | MRI KNEE RIGHT WO | Routin | 09/01/2018 | | Results for this | | CONTRAST | e | 12:16 PM | | procedure are in the | | | | PDT | | results section. | + +--------+ + + + documented in this encounter Results MRI Knee Right wo Contrast (09/01/2018 12:16 PM PDT) + + | Specimen | + + | | + + + + + | Impressions | Performed At | + + + | Extremely limited examination secondary to severe susceptibility | | | artifacts. *The ACL graft is poorly visualized, appears grossly | | | intact. *Probable status post partial medial meniscectomy. Probable | | | peripheral vertical tear of the posterior aspect of body/posterior | | | horn of the medial meniscus extending to the inferior articular | | | surface. *Suboptimal evaluation of the lateral meniscus. Probable | | | vertical tear of the posterior horn of the lateral meniscus extending | | | to the inferior articular surface. 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 *Small knee joint | | | effusion with synovitis. Signed by: Ton Dupree, Pushpender Sign | | | Date/Time: 09/02/2018 9:26 AM | | + + + + + + | Narrative | Performed At | + + + | MRI RIGHT KNEE CLINICAL INFORMATION: Post-traumatic osteoarthritis | | | of one knee, right. COMPARISON: None PROCEDURE: Multiplanar | | | multisequence MRI of the right knee without intravenous contrast. | | | Susceptibility artifacts from metallic hardware limits evaluation. | | | FINDINGS: Marrow: No acute fracture or dislocation. Joint Space: | | | Small knee joint effusion with synovitis. Small intra-articular | | | ossified body adjacent tibial spine measuring approximately 5 x 3 mm, | | | image 11/series 7. Anterior Cruciate Ligament (ACL): Status post ACL | | | reconstruction. On coronal image 13/series 90 ACL graft appears | | | intact however, evaluation is severely limited secondary to | | | susceptibility artifacts. Posterior Cruciate Ligament (PCL): Intact. | | | Medial Ligamentous Complex: Normal. Lateral Ligamentous Complex: | | | Fibular collateral ligament, iliotibial band, popliteus tendon and | | | posterior lateral corner stabilizing structures n appear normal. | | | Evaluation limited by susceptibility artifacts. Medial Meniscus: | | | Diminutive appearance of the medial meniscus, status post partial | | | medial meniscectomy. Only small amount of residual medial meniscus | | | tissue is visualized. There is increased signal in posterior horn | | | of the medial meniscus extending to the inferior articular surface, | | | images 16 and 17/series 5. Lateral Meniscus: Increased signal in | | | posterior horn of the lateral meniscus extending to the inferior | | | articular surface. Extensor Mechanism: Quadriceps and patellar | | | tendons, medial and lateral retinacula, suprapatellar and Hoffa's fat | | | pad normal. Articular Cartilage: *Patellofemoral Compartment: | | | Probable small fissure in patellar cartilage, image 8/series 5. | | | *Medial Compartment: Partial thickness chondral loss medial femoral | | | condyle in medial tibial plateau with small focal areas of | | | full-thickness chondral loss. *Lateral Compartment: Extremely limited | | | evaluation secondary to severe susceptibility artifacts. Probable | | | focal high-grade partial-thickness/full-thickness chondral loss | | | lateral femoral condyle, image 15/series 7. Miscellaneous: | | | Juxta-articular musculature, tibial and peroneal nerves, tibiofibular | | | joint normal. | | + + + + + | Procedure Note | + + | Galindo, Rad Conversion - 09/22/2018 12:11 AM PDT MRI RIGHT KNEE | | CLINICAL INFORMATION: | | Post-traumatic osteoarthritis of one knee, right. | | COMPARISON: | | None | | PROCEDURE: | | Multiplanar multisequence MRI of the right knee without intravenous | | contrast. | | Susceptibility artifacts from metallic hardware limits evaluation. | | FINDINGS: | | Marrow: No acute fracture or dislocation. | | Joint Space: Small knee joint effusion with synovitis. Small | | intra-articular ossified body adjacent tibial spine measuring | | approximately 5 x 3 mm, image 11/series 7. | | Anterior Cruciate Ligament (ACL): Status post ACL reconstruction. On | | coronal image 13/series 90 ACL graft appears intact however, evaluation | | is severely limited secondary to susceptibility artifacts. | | Posterior Cruciate Ligament (PCL): Intact. | | Medial Ligamentous Complex: Normal. | | Lateral Ligamentous Complex: Fibular collateral ligament, iliotibial | | band, popliteus tendon and posterior lateral corner stabilizing | | structures n appear normal. Evaluation limited by susceptibility | | artifacts. | | Medial Meniscus: Diminutive appearance of the medial meniscus, status | | post partial medial meniscectomy. Only small amount of residual medial | | meniscus tissue is visualized. There is increased signal in posterior | | horn of the medial meniscus extending to the inferior articular | | surface, images 16 and 17/series 5. | | Lateral Meniscus: Increased signal in posterior horn of the lateral | | meniscus extending to the inferior articular surface. | | Extensor Mechanism: Quadriceps and patellar tendons, medial and lateral | | retinacula, suprapatellar and Hoffa's fat pad normal. | | Articular Cartilage: | | *Patellofemoral Compartment: Probable small fissure in patellar | | cartilage, image 8/series 5. | | *Medial Compartment: Partial thickness chondral loss medial femoral | | condyle in medial tibial plateau with small focal areas of | | full-thickness chondral loss. | | *Lateral Compartment: Extremely limited evaluation secondary to severe | | susceptibility artifacts. Probable focal high-grade | | partial-thickness/full-thickness chondral loss lateral femoral condyle, | | image 15/series 7. | | Miscellaneous: Juxta-articular musculature, tibial and peroneal nerves, | | tibiofibular joint normal. | | IMPRESSION: | | Extremely limited examination secondary to severe susceptibility | | artifacts. | | *The ACL graft is poorly visualized, appears grossly intact. | | *Probable status post partial medial meniscectomy. Probable peripheral | | vertical tear of the posterior aspect of body/posterior horn of the | | medial meniscus extending to the inferior articular surface. | | *Suboptimal evaluation of the lateral meniscus. Probable vertical tear | | of the posterior horn of the lateral meniscus extending to the inferior | | articular surface. 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 | | *Small knee joint effusion with synovitis. | | Signed by: Ton Dupree, Germain | | Sign Date/Time: 09/02/2018 9:26 AM | + + documented in this encounter Visit Diagnoses + + | Diagnosis | + + | Post-traumatic osteoarthritis of one knee, right | + + | Sprain of anterior cruciate ligament of right knee, initial encounter | + + documented in this encounter"
--- OUTSIDE RECORDS SUMMARY | ~2019-02-06 | XMS | Encounter Summary ---
Demographics + + + | Address | [address] | | | [place] [address] | + + + | Home Phone | | + + + | Preferred Language | Unknown | + + + | Marital Status | | + + + | Lutheran Affiliation | Unknown | + + + | Race | Unknown | + + + | Ethnic Group | Unknown | + + + Author + + + | Author | [facility] | | | and [place] | + + + | Organization | [facility] | | | and [...] Team Providers + +------+ + | Care Tower Dragline Operator Name | Role | Phone | + +------+ + | No, Physician | PCP | Unavailable | + +------+ + Encounter Details +--------+ + + + + | Date | Type | Department | Care Team | Description | +--------+ + + + + | 09/01/ | Hospital | [facility] | Conversion | | | 2019 | Encounter | MEDICAL CENTER | Transaction, | | | | | OUTPATIENT | Provider Unknown | | | | | PROCEDURES [address] | [phone] | | | | | [address] | | | | | | [place] | | | | | | [address] | | | | | | [phone] | | | +--------+ + + + [...]
--- OUTSIDE RECORDS SUMMARY | ~2019-02-06 | XMS | Encounter Summary ---
Demographics + + + | Address | [address] | | | [place] [address] | + + + | Home Phone | | + + + | Preferred Language | Unknown | + + + | Marital Status | | + + + | Zoroastrian Affiliation | Unknown | + + + | Race | Unknown | + + + | Ethnic Group | Unknown | + + + Author + + + | Author | [facility] | | | and [place] | + + + | Organization | [facility] | | | [...] Team Providers + +------+ + | Care Herpetology Teacher Name | Role | Phone | + +------+ + PCP | Unavailable | + +------+ + Encounter Details +--------+ + + + + | Date | Type | Department | Care Team | Description | +--------+ + + + + | 09/25/ | Hospital | [facility] | Conversion | Unknown cause of | | 2015 | Encounter | CONVERSION [address]P [address] | Transaction, | injury | | | | [address] | Provider Unknown | | | | | [place] | [phone] | | | | | [address] | | | | | | [phone] | | | +--------+ + + + [...] + +--------+ + + + | MRI CERVICAL SPINE W | Routin | 08/29/2009 | | Results for this | | WO CONTRAST | e | 7:03 AM | | procedure are in the | | | | PDT | | results section. | + +--------+ + + + documented in this encounter Results MRI Cervical Spine w wo Contrast (08/29/2009 7:03 AM PDT) + + | Specimen | + + | | + + + + + | Narrative | Performed At | + + + | This is a non-reportable procedure without a radiologist report and | | | is used for image storage only | | + + + + + | Procedure Note | + + | Hemant Medely - 09/23/2018 7:31 PM PDT This is a non-reportable procedure | | without a radiologist report and isused for image storage only | + + documented in this encounter Visit Diagnoses + + | Diagnosis | + + | Unknown cause of injury Unspecified accident | + + documented in this encounter"
--- OUTSIDE RECORDS SUMMARY | ~2019-02-06 | XMS | Encounter Summary ---
Demographics + + + | Address | [address] | | | [place] [address] | + + + | Home Phone | | + + + | Preferred Language | Unknown | + + + | Marital Status | | + + + | Baptist Affiliation | Unknown | + + + | Race | Unknown | + + + | Ethnic Group | Unknown | + + + Author + + + | Author | [facility] | | | and [place] | + + + | Organization | [facility] | | | and [...] Team Providers + +------+ + | Care Watch Band Assembler Name | Role | Phone | + +------+ + PCP | Unavailable | + +------+ + Encounter Details +--------+ + + + + | Date | Type | Department | Care Team | Description | +--------+ + + + + | 03/06/ | Hospital | [facility] | Conversion | | | 2018 | Encounter | MEDICAL CENTER | Transaction, | | | | | OUTPATIENT | Provider Unknown | | | | | PROCEDURES [address] | [phone] | | | | | [address] | | | | | | [place], [place] | | | | | | [address] | | | | | | [phone] | | | +--------+ + + + [...] + + + | Blood Pressure | 150/106 | 03/06/2017 12:44 PM | | | | | PST | | + + + + + | Pulse | 110 | 03/06/2017 12:44 PM | | | | | PST | | + + + + + | Temperature | 37.1 C (98.8 F) | 03/06/2017 12:44 PM | | | | | PST | | + + + + + | Respiratory Rate | 16 | 03/06/2017 12:44 PM | | | | | PST [...]
--- OUTSIDE RECORDS SUMMARY | ~2019-02-06 | XMS | Encounter Summary ---
Demographics + + + | Address | [address] | | | [place] [address] | + + + | Home Phone | | + + + | Preferred Language | Unknown | + + + | Marital Status | | + + + | Mu-Ism Affiliation | Unknown | + + + | Race | Unknown | + + + | Ethnic Group | Unknown | + + + Author + + + | Author | [facility] | | | and [place] | + + + | Organization | [facility] | | | and [...] Team Providers + +------+ + | Care Cbx Operator Name | Role | Phone | + +------+ + | No, Physician | PCP | Unavailable | + +------+ + Encounter Details +--------+ + + + + | Date | Type | Department | Care Team | Description | +--------+ + + + + | 03/02/ | Hospital | [facility] | Conversion | | | 2019 | Encounter | MEDICAL CENTER | Transaction, | | | | | OUTPATIENT | Provider Unknown | | | | | PROCEDURES [address] | [phone] | | | | | [address] | | | | | | [place] | | | | | | [address] | | | | | | [phone] | | | +--------+ + + + [...]
--- OUTSIDE RECORDS SUMMARY | ~2019-02-06 | XMS | Encounter Summary ---
Demographics + + + | Address | [address] | | | [place] [address] | + + + | Home Phone | | + + + | Preferred Language | Unknown | + + + | Marital Status | | + + + | Adventist Affiliation | Unknown | + + + | Race | Unknown | + + + | Ethnic Group | Unknown | + + + Author + + + | Author | [facility] | | | and [place] | + + + | Organization | [facility] | | [...] Providers + +------+ + | Care Manager Asset Name | Role | Phone | + +------+ + PCP | Unavailable | + +------+ + Encounter Details +--------+ + + + + | Date | Type | Department | Care Team | Description | +--------+ + + + + | 09/01/ | Hospital | [facility] | Conversion | | | 2017 | Encounter | MEDICAL CENTER | Transaction, | | | | | OUTPATIENT | Provider Unknown | | | | | PROCEDURES [address] | [phone] | | | | | [address] | | | | | | [place], [place] | | | | | | [address] | | | | | | [phone] | | | +--------+ + + + [...] + + + | Blood Pressure | 177/105 | 09/01/2016 1:51 PM | | | | | PDT | | + + + + + | Pulse | 90 | 09/01/2016 1:51 PM | | | | | PDT | | + + + + + | Temperature | 37.7 C (99.9 F) | 09/01/2016 1:51 PM | | | | | PDT | | + + + + + | Respiratory Rate | 18 | 09/01/2016 1:51 PM | | | | | PDT [...]
--- OUTSIDE RECORDS SUMMARY | ~2019-02-06 | XMS | Encounter Summary ---
Demographics + + + | Address | [address] | | | [place] [address] | + + + | Home Phone | | + + + | Preferred Language | Unknown | + + + | Marital Status | | + + + | Yarsanism Affiliation | Unknown | + + + | Race | Unknown | + + + | Ethnic Group | Unknown | + + + Author + + + | Author | [facility] | | | and [place] | + + + | Organization | [facility] | | | [...] Team Providers + +------+ + | Care Telegraph Repeater Installer Name | Role | Phone | + +------+ + | No, Physician | PCP | Unavailable | + +------+ + Encounter Details +--------+ + + + + | Date | Type | Department | Care Team | Description | +--------+ + + + + | 09/01/ | Hospital | [facility] | Conversion | Post-traumatic | | 2019 | Encounter | MEDICAL CENTER MRI | Transaction, | osteoarthritis of | | | | [address] | Provider Unknown | one knee, right; | | | | [place] | [phone] | Sprain of anterior | | | | [address] | | cruciate ligament of | | | | [phone] | | right knee, initial | | [...]
--- OUTSIDE RECORDS SUMMARY | ~2019-02-06 | XMS | Encounter Summary ---
Demographics + + + | Address | [address] | | | [place] [address] | + + + | Home Phone | | + + + | Preferred Language | Unknown | + + + | Marital Status | | + + + | Samaritan Affiliation | Unknown | + + + | Race | Unknown | + + + | Ethnic Group | Unknown | + + + Author + + + | Author | [facility] | | | and [place] | + + + | Organization | [facility] | | [...] Team Providers + +------+ + | Care Technical Analyst Name | Role | Phone | + +------+ + | Ben Tirado MD | PCP | | + +------+ + Encounter Details +--------+ + + + + | Date | Type | Department | Care Team | Description | +--------+ + + + + | 09/01/ | Orders Only | [facility] | Conversion | | | 2017 | | CONVERSION [address] | Transaction, | | | | | [address] | Provider Unknown | | | | | [place], [place] | [phone] | | | | | [address] | | | | | | [phone] | | | +--------+ + + + [...]
--- OUTSIDE RECORDS SUMMARY | ~2019-02-06 | XMS | Encounter Summary ---
Demographics + + + | Address | [address] | | | [place] [address] | + + + | Home Phone | | + + + | Preferred Language | Unknown | + + + | Marital Status | | + + + | Sikh Affiliation | Unknown | + + + | Race | Unknown | + + + | Ethnic Group | Unknown | + + + Author + + + | Author | [facility] | | | and [place] | + + + | Organization | [facility] | | | [...] Team Providers + +------+ + | Care Deck And Hull Assembler Name | Role | Phone | + +------+ + PCP | Unavailable | + +------+ + Encounter Details +--------+ + + + + | Date | Type | Department | Care Team | Description | +--------+ + + + + | 05/12/ | Hospital | [facility] | Conversion | | | 2017 | Encounter | MEDICAL CENTER | Transaction, | | | | | OUTPATIENT | Provider Unknown | | | | | PROCEDURES [address] | [phone] | | | | | [address] | | | | | | [place], [place] | | | | | | [address] | | | | | | [phone] | | | +--------+ + + + [...] + + + | Blood Pressure | 145/90 | 05/12/2016 1:50 PM | | | | | PDT | | + + + + + | Pulse | 69 | 05/12/2016 1:50 PM | | | | | PDT | | + + + + + | Temperature | 36.7 C (98.1 F) | 05/12/2016 1:50 PM | | | | | PDT | | + + + + + | Respiratory Rate | 16 | 05/12/2016 1:50 PM | | | | | PDT [...]
--- OUTSIDE RECORDS SUMMARY | ~2019-02-06 | XMS | Encounter Summary ---
Demographics + + + | Address | [address] | | | [place] [address] | + + + | Home Phone | | + + + | Preferred Language | Unknown | + + + | Marital Status | | + + + | Baptist Affiliation | Unknown | + + + | Race | Unknown | + + + | Ethnic Group | Unknown | + + + Author + + + | Author | [facility] | | | and [place] | + + + | Organization | [facility] | | [...] Team Providers + +------+ + | Care Director Of Infection Control Name | Role | Phone | + +------+ + | No, Physician | PCP | Unavailable | + +------+ + Encounter Details +--------+ + + + + | Date | Type | Department | Care Team | Description | +--------+ + + + + | 09/01/ | Hospital | [facility] | Conversion | | | 2018 | Encounter | MEDICAL CENTER | Transaction, | | | | | OUTPATIENT | Provider Unknown | | | | | PROCEDURES [address] | [phone] | | | | | [address] | | | | | | [place] | | | | | | [address] | | | | | | [phone] | | | +--------+ + + + [...] Note by Syeda Beverly RN at 09/01/17 8803 Author: Syeda Beverly RN Service: (none) Author Type: Registered Nurse Filed: 09/04/17 0957 Date of Service: 09/01/172358 Status: Signed Decator Operator: Syeda Beverly RN (Registered Nurse) Received a phone call from [facility] reporting symptoms of hives the [...]
--- OUTSIDE RECORDS SUMMARY | ~2019-02-06 | XMS | Clinical Summary ---
Demographics + + + | Address | [address] | | | [place] [address] | + + + | Home Phone | | + + + | Preferred Language | Unknown | + + + | Marital Status | Single | + + + | Orthodoxy Affiliation | Unknown | + + + | Race | Unknown | + + + | Ethnic Group | Unknown | + + + Author + + + | Author | [facility] (Historical as of | | | 09-25-18) | + + + | Organization | [facility] (Historical as of | | | 09-25-18) | + + + | Address | Unknown | + + + | Phone | Unavailable | + + + Support + + +---------+ + | Name | Relationship | Address | Phone | + + +---------+ + | Residential | ECON | Unknown | | | Treatment | | | | | Home,[facility] | | | | + + +---------+ + Care Team Providers + +------+ + | Care Records Coordinator Name | Role | Phone | + +------+ + | Ben Tirado MD | PP | | + +------+ + Allergies + [...] | + + + + + + Current Medications + + +--------+---------+------+------+-------+ | Prescription | Sig. | Disp. | Refills | Star | End | Statu | | | | | | t | Date | s | | | | | | Date | | | + + +--------+---------+------+------+-------+ | acetaminophen | Take 325 mg by mouth | | | | | Activ | | (TYLENOL) 325 MG | every 6 (six) hours | | | | | e | | tablet | as needed for Pain. | | | | | | | | Sleep aid | | | | | | + + +--------+---------+------+------+-------+ | cyclobenzaprine | Take 10 mg by mouth | | | | | Activ | | (FLEXERIL) 10 MG | 3 (three) times | | | | | e | | tablet | daily as needed for | | | | | | | | Muscle spasms. | | | | | | + + +--------+---------+------+------+-------+ | | | | | 08/0 | | Activ | | HYDROcodone-acetamin | | | | 9/20 | | e | | ophen (NORCO) 5-325 | | | | 17 | | | | MG per tablet | | | | | | | + + +--------+---------+------+------+-------+ | busPIRone (BUSPAR) | Take 1 tablet by | 90 | 1 | 08/1 | | Activ | | 15 MG tablet | mouth 3 (three) | tablet | | 1/20 | | e | | | times daily. | | | 17 | | | + + +--------+---------+------+------+-------+ | | Take 1 tablet by | 30 | 11 | 08/1 | | Activ | | triamterene-hydrochl | mouth daily. | tablet | | 02/28 | | e | | orothiazide | | | | 17 | | | | (MAXZIDE-25) 37.5-25 | | | | | | | | MG per tablet | | | | | | | + + +--------+---------+------+------+-------+ | HYDROmorphone | | | | 09/09 | | Activ | | (DILAUDID) 2 MG | | | | 10/29 | | e | | tablet | | | | 17 | | | + + +--------+---------+------+------+-------+ Active Problems + + + | Problem | Noted Date | + + + | Chronic pain syndrome | 10/12/2015 | + + + + + | Last Assessment & Plan: This patient has a intrathecal pain | | pump for chronic pain. She is currently on hydromorphone 9 mg per | | mL and bupivacaine at 3 mg per mL. She is on a continuous mode | | at 1.2017 mg per day of hydromorphone with 0.4006 mg per day | | bupivacaine. She has had increased pain and is here to request an | | increase in her intrathecal pain pump. She is also for | | additional refill of her hydromorphone. Her last prescription was | | and September 2015 and lasted for 3-4 months.Today we | | increased her settings by 13 percent. We did increase her to | | 1.3534 mg per day of her hydromorphone and 0.4511 mg per day for | | bupivacaine. We will refer her hydromorphone one more time. I | | will put her on a list for her to see Dr. Sherwood. I did tell her | | that I will not fill her hydromorphone anymore. | + + + + + | Chronic postoperative pain | 10/12/2015 | + + + + + | Last Assessment & Plan: See Discussion under chronic pain | + + + + + | History of fusion of cervical spine | 10/12/2015 | + + + + + | Last Assessment & Plan: See Discussion under chronic pain | + + Family History + + +------+ [...] | | | + +---+---+---+ + + +---------+ + | Alcohol Use | Drinks/We | oz/Week | Comments | | | ek | | | + + +---------+ + | Yes | | | rarely | + + +---------+ + + + + | Sex Assigned at | Date Recorded | | | | + + + | Not on file | | + + + Last Filed Vital Signs + + + + | Vital Sign | Reading | Time Taken | + + + + | Blood Pressure | 187/116 | 06/22/2018 1:34 PM PDT | + + + + | Pulse | 88 | 06/22/2018 1:34 PM PDT | + + + + | Temperature | 37.1 C (98.8 F) | 06/22/2018 12:59 PM PDT | + + + + | Respiratory Rate | 20 | 06/22/2018 1:34 PM PDT | + + + + | Oxygen Saturation | 98% | 06/22/2018 1:34 PM PDT | + + + + | Inhaled Oxygen | - | - | | Concentration | | | + + + + | Weight | 49 kg (108 lb 0.4 | 06/22/2018 12:59 PM PDT | | | oz) | | + + + + | Height | 172.7 cm (5' 8") | 06/22/2018 12:59 PM PDT | + + + + | Body Mass Index | 16.43 | 06/22/2018 12:59 PM PDT | + + + + Plan of Treatment [...] Screening | 4 | | | | (Mammogram) | | | | + + + + + | Colon Cancer | | | | | Screening | 4 | | | | (Colonoscopy) | | | | + + + + + | Vaccine: Zoster (1 | | | | | of 2) | 4 | | | + + + + + | DEXA SCAN SCREENING | | | | | | 9 | | | + + + + + | Vaccine: | | | | | Pneumococcal 65+ | 9 | | | | Low/Medium Risk (1 | | | | | of 2 - PCV13) | | | | + + + + + | Vaccine: Influenza | | | | | (#1) | 9 | | | + + + + + Results Not on filefrom Last 3 Months Insurance + +--------+ +------+-------+ + | Payer | Benefi | Subscriber | Type | Phone | Address | | | t Plan | ID | | | | | | / | | | | | | | Group | | | | | + +--------+ +------+-------+ + | MEDICARE | MEDICA | [id number] | | | [address] | | | RE | | | | [place] [address] | | | IP-OP | | | | | + +--------+ +------+-------+ + | MEDICAID | [place]ER | [id number] | | | [address] | | | N | | | | [place] | | | [place] | | | | [address] | | | [employer] SPOTTER | | | | | + +--------+ +------+-------+ + + +--------+ +--------+ + + | Guarantor Name | Accoun | Relation to | Date | Phone | Billing Address | | | t Type | Patient | of | | | | | | | | | | + +--------+ +--------+ + + | LEFTY SMITH | Person | Self | [birth year] | Home: | [address] | | GAY | al/Fam | | 1955 | [phone] | [place], | | | [place] | | | 1988 | [place] [address] | + +--------+ +--------+ + +
--- OUTSIDE RECORDS SUMMARY | ~2019-02-06 | XMS | Encounter Summary ---
Demographics + + + | Address | [address] | | | [place] [address] | + + + | Home Phone | | + + + | Preferred Language | Unknown | + + + | Marital Status | | + + + | Scientology Affiliation | Unknown | + + + | Race | Unknown | + + + | Ethnic Group | Unknown | + + + Author + + + | Author | [facility] | | | and [place] | + + + | Organization | [facility] | | | [...] Team Providers + +------+ + | Care Activity Specialist Name | Role | Phone | + +------+ + PCP | Unavailable | + +------+ + Encounter Details +--------+ + + + + | Date | Type | Department | Care Team | Description | +--------+ + + + + | 02/11/ | Hospital | [facility] | Conversion | | | 2017 | Encounter | MEDICAL CENTER | Transaction, | | | | | OUTPATIENT | Provider Unknown | | | | | PROCEDURES [address] | [phone] | | | | | [address] | | | | | | [place], [place] | | | | | | [address] | | | | | | [phone] | | | +--------+ + + + [...]
--- OUTSIDE RECORDS SUMMARY | ~2019-02-06 | XMS | Encounter Summary ---
Demographics + + + | Address | [address] | | | [place] [address] | + + + | Home Phone | | + + + | Preferred Language | Unknown | + + + | Marital Status | | + + + | Advent Affiliation | Unknown | + + + | Race | Unknown | + + + | Ethnic Group | Unknown | + + + Author + + + | Author | [facility] | | | and [place] | + + + | Organization | [facility] | | | and [place] | + [...] Team Providers + +------+ + | Care Outreach Nurse Name | Role | Phone | + +------+ + PCP | Unavailable | + +------+ + Encounter Details +--------+ + + + + | Date | Type | Department | Care Team | Description | +--------+ + + + + | 05/27/ | Hospital | [facility] | Conversion | Back pain, | | 2017 | Encounter | CONVERSION [address] | Transaction, | unspecified back | | | | [address] | Provider Unknown | location, | | | | [place], [place] | [phone] | unspecified back | | | | [address] | (Fax) | pain laterality, | | [...]
--- OUTSIDE RECORDS SUMMARY | ~2019-02-06 | XMS | Encounter Summary ---
Demographics + + + | Address | [address] | | | [place] [address] | + + + | Home Phone | | + + + | Preferred Language | Unknown | + + + | Marital Status | | + + + | Jainism Affiliation | Unknown | + + + [...] Team Providers + +------+ + | Care Cellars Supervisor Name | Role | Phone | + [...] Provider Unknown | | | | | [place], [place] | [phone] | | | | | [address] | | | | | | [phone] | | | +--------+ + + + [...]
--- OUTSIDE RECORDS SUMMARY | ~2019-02-06 | XMS | Encounter Summary ---
Demographics + + + | Address | [address] | | | [place] [address] | + + + | Home Phone | | + + + | Preferred Language | Unknown | + + + | Marital Status | | + + + | Quaker Affiliation | Unknown | + + + | Race | Unknown | + + + | Ethnic Group | Unknown | + + + Author + + + | Author | [facility] | | | and [place] | + + + | Organization | [facility] | | [...] Team Providers + +------+ + | Care Refinery Technician Name | Role | Phone | + +------+ + PCP | Unavailable | + +------+ + Encounter Details +--------+ + + + + | Date | Type | Department | Care Team | Description | +--------+ + + + + | 05/12/ | Hospital | [facility] | Conversion | | | 2017 | Encounter | MEDICAL CENTER | Transaction, | | | | | OUTPATIENT | Provider Unknown | | | | | PROCEDURES [address] | [phone] | | | | | [address] | | | | | | [place], [place] | | | | | | [address] | | | | | | [phone] | | | +--------+ + + + [...]
--- OUTSIDE RECORDS SUMMARY | ~2019-02-06 | XMS | Encounter Summary ---
Demographics + + + | Address | [address] | | | [place] [address] | + + + | Home Phone | | + + + | Preferred Language | Unknown | + + + | Marital Status | | + + + | Protestant Affiliation | Unknown | + + + | Race | Unknown | + + + | Ethnic Group | Unknown | + + + Author + + + | Author | [facility] | | | and [place] | + + + | Organization | [facility] | | [...] Team Providers + +------+ + | Care Office Automation Technician Name | Role | Phone | [...] | | | | [place] | [phone] | | | | | [address] | | | | | | [phone] | | | +--------+ + + + [...]
--- OUTSIDE RECORDS SUMMARY | ~2019-02-06 | XMS | Encounter Summary ---
Demographics + + + | Address | [address] | | | [place] [address] | + + + | Home Phone | | + + + | Preferred Language | Unknown | + + + | Marital Status | | + + + | Bahai Affiliation | Unknown | + + + [...] Team Providers + +------+ + | Care Treatment Specialist Name | Role | Phone | + +------+ + | No, Physician | PCP | Unavailable | + +------+ + Encounter Details +--------+ + + + + | Date | Type | Department | Care Team | Description | +--------+ + + + + | 06/05/ | Hospital | [facility] | Conversion | | | 2018 | Encounter | MEDICAL CENTER | Transaction, | | | | | OUTPATIENT | Provider Unknown | | | | | PROCEDURES [address] | [phone] | | | | | [address] | | | | | | [place] | | | | | | [address] | | | | | | [phone] | | | +--------+ + + + [...] + + + | Blood Pressure | 132/89 | 06/05/2017 12:20 PM | | | | | PDT | | + + + + + | Pulse | 80 | 06/05/2017 12:20 PM | | | | | PDT | | + + + + + | Temperature | 36.4 C (97.5 F) | 06/05/2017 12:20 PM | | | | | PDT | | + + + + + | Respiratory Rate | 18 | 06/05/2017 12:20 PM | | | | | PDT [...]
--- OUTSIDE RECORDS SUMMARY | ~2019-02-06 | XMS | Clinical Summary ---
Demographics + + + | Address | [address] | | | [place] [address] | + + + | Home Phone | | + + + | Preferred Language | Unknown | + + + | Marital Status | | + + + | Anglican Affiliation | Unknown | + + + | Race | Unknown | + + + | Ethnic Group | Unknown | + + + Author + + + | Author | [facility] | | | and [place] | + + + | Organization | [facility] | | [...] Team Providers + +------+ + | Care Photonics Engineer Name | Role | Phone | + [...] | +--------+ + + + + | 01/25/ | Telephone | Pain Medicine | Beto Reyes, | Appointment (issue | | 2018 | | | MD | with pump ) | +--------+ + + + + | 12/09/ | Hospital | Internal Medicine | Dale Panda | History of fusion of | | 2018 - | Encounter | | MD Amparo | cervical spine | | | | | | (Primary Dx); Acute | | 12/11/ | | | | CVA (cerebrovascular | 2018 | | | | accident) (HCC); | [...] | | | Dtap/Tdap/Td (1 - | 5 | | | | Tdap) | | [...] + + + | BASIC METABOLIC | MELAINE | 12/10/2018 | | Results for this [...] | | | Absolute | performed at [facility];[address] | [address] | LABORATORY | | | | [address];[place], [place] | | | | | | [address] | | | | + + + + + + + + | Specimen | + + | Blood | + + + + + + + | Performing | Address | City/State/Zipcode | Phone Number | | Organization | | | | + + + + + | [facility] | [address] | [place] [address] | [phone] | + + + + + Phosphorus [...] Testing | 2.3 - 4.8 mg/dL | [place] | | | | performed at [facility];[address] | | LABORATORY | | | | [address];[place] | | | | | | [address] | | | | + + + + + + + + | Specimen | + + | Blood | + + + + + + + | Performing | Address | City/State/Zipcode | Phone Number | | Organization | | | | + + + + + | [facility] | [address] | [place] [address] | [phone] | + + + + + Magnesium [...] Testing | 1.7 - 2.4 mg/dL | [facility] | | | | performed at [facility];[address] | | LABORATORY | | | | [address];[place], [place] | | | | | | [address] | | | | + + + + + + + + | Specimen | + + | Blood | + + + + + + + | Performing | Address | City/State/Zipcode | Phone Number | | Organization | | | | + + + + + | [facility] | [address] | [place] [address] | [phone] | + + + + + Basic [...] | 9.2 | 8.5 - 10.5 | [place] | | | | | mg/dL | [...] | | | | | performed at [facility] | | | | | | [facility];[place], [place] | | | | | | [address] | | | | + + + + + + + + | Specimen | + + | Blood | + + + + + + + | Performing | Address | City/State/Zipcode | Phone Number | | Organization | | | | + + + + + | [facility] | [address] | [place] [address] | [phone] | + + + + + MRI [...] | | | | Signed by: Meghan Carr, [place] | | Sign Date/Time: 12/10/2018 5:34 PM | + + + +---------+ + + | Performing | Address | City/State/[facility] | Phone Number | | Organization | [...] | | | Calculated | performed at [facility], [address] | | LABORATORY | | | | [address], | | | | | | [place] [address] | | | | + + + + + + + + | Specimen | + + | Blood | + + + + + + + | Performing | Address | City/State/Zipcode | Phone Number | | Organization | | | | + + + + + | [facility] | [address] | [place] [address] | [phone] | + + + + + Hemoglobin A1C (12/10/2018 4:20 AM PDT) + + + + + + | Component | Value | Ref Range | Performed | Pathologist | | | | | At | Signature | + + + + + + | Hemoglobin | 5.4Comment: HbA1c method | 4.0 - 6.0 % | [facility] | | | A1c | is certified [...] | 108Comment: Estimated | <154 mg/dL | [facility] | | | Average | Average Glucose | | LABORATORY | | | Glucose | calculated from | | | | | | hemoglobin A1c by use of | | | | | | the ADArecommended | | | | | | formula.Testing | | | | | | performed at [facility], [address] | | | | | | [facility], | | | | | | [place] [address] | | | | + + + + + + + + | Specimen | + + | Blood | + + + + + + + | Performing | Address | City/State/Zipcode | Phone Number | | Organization | | | | + + + + + | [facility] | [address] | [place] [address] | [phone] | + + + + + Comprehensive [...] | | | | | performed at [facility];[address] | | | | | | [address];[place], [place] | | | | | | [address] | | | | + + + + + + + + | Specimen | + + | Blood | + + + + + + + | Performing | Address | City/State/Zipcode | Phone Number | | Organization | | | | + + + + + | [facility] | [address] [facility] | [place] [address] | [phone] | + + + + + POC Glucose (12/09/2018 5:56 PM PDT) + + + + + + | Component | Value | Ref Range | Performed | Pathologist | | | | | At | Signature | + + + + + + | Glucose, | 94Comment: Testing | 65 - 99 mg/dL | [facility] | | | POC | performed at [facility];[address] | | LABORATORY | | | | [address];[place], [place] | | | | | | [address] | | | | + + + + + + + + | Specimen | + + | | + + + + + + + | Performing | Address | City/State/Zipcode | Phone Number | | Organization | | | | + + + + + | [facility] | [address] | [place] [address] | [phone] | + + + + + MRSA [...] [facility] | | | | performed at [facility];[address] | | LABORATORY | | | | [address];[place] | | | | | | [address] | | | | + + + + + + + + | Specimen | + + | Tissue - Both | | anterior nares (body | | structure) | + + + + + + + | Performing | Address | City/State/Zipcode | Phone Number | | Organization | | | | + + + + + | [facility] | [address] | [place] [address] | [phone] | + + + + + from [...] +--------+ +---------+--------+ | MEDICARE | MEDICA | [id number] | | [phone] | | Medica | | | RE | | [phone]-Pr | [phone] | | re | | | PART A | | esent | | | | | | AND B | | | | | | + +--------+ +--------+ +---------+--------+ | MEDICAID [place] | MEDICA | [id number] | 12/09/ | [phone] | | Medica [...] Jessica Deutsch | Person | Self | [birth year] | [address] | | Gay | al/Fam | | 1956 | [phone] | [place], | | | [place] | | | [address] (Home) | [place] [address] | + +--------+ +--------+ + + | Jessica Deutsch | Person | Self [birth year] | [address] | | Gay | al/Fam | | 1956 | [phone] | [place], | | | [place] | | | [address] (Home) | [place] [address] | + +--------+ +--------+ + + Advance Directives + + + + + | Type | Date Recorded | Patient | Explanation | | | | Setter Automatic Spinning Lathe | | + + + + + | Power of | | | | | Hog Stomach Preparer | | | | + + + [...]
--- OUTSIDE RECORDS SUMMARY | ~2019-02-06 | XMS | Encounter Summary ---
Demographics + + + | Address | [address] | | | [place] [address] | + + + | Home Phone | | + + + | Preferred Language | Unknown | + + + | Marital Status | | + + + | Gnosticist Affiliation | Unknown | + + + | Race | Unknown | + + + | Ethnic Group | Unknown | + + + Author + + + | Author | [facility] | | | and [place] | + + + | Organization | [facility] | | | and [...] Team Providers + +------+ + | Care Client Service Coordinator Name | Role | Phone | + +------+ + PCP | Unavailable | + +------+ + Encounter Details +--------+ + + + + | Date | Type | Department | Care Team | Description | +--------+ + + + + | 09/18/ | Hospital | [facility] | Conversion | | | 2016 | Encounter | MEDICAL CENTER | Transaction, | | | | | OUTPATIENT | Provider Unknown | | | | | PROCEDURES [address] | [phone] | | | | | [address] | | | | | | [place], [place] | | | | | | [address] | | | | | | [phone] | | | +--------+ + + + [...] + + + | Blood Pressure | 173/105 | 09/19/2015 1:00 PM | | | | | PDT | | + + + + + | Pulse | 77 | 09/19/2015 1:00 PM | | | | | PDT | | + + + + + | Temperature | 37.2 C (99 F) | 09/19/2015 1:00 PM | | | | | PDT | | + + + + + | Respiratory Rate | 18 | 09/19/2015 1:00 PM | | | | | PDT [...]
--- OUTSIDE RECORDS SUMMARY | ~2019-02-06 | XMS | Encounter Summary ---
Demographics + + + | Address | [address] | | | [place] [address] | + + + | Home Phone | | + + + | Preferred Language | Unknown | + + + | Marital Status | | + + + | Denominational Affiliation | Unknown | + + + | Race | Unknown | + + + | Ethnic Group | Unknown | + + + Author + + + | Author | [facility] | | | and [place] | + + + | Organization | [facility] | | | [...] Team Providers + +------+ + | Care Superintendent Service Name | Role | Phone | + +------+ + PCP | Unavailable | + +------+ + Encounter Details +--------+ + + + + | Date | Type | Department | Care Team | Description | +--------+ + + + + | 09/30/ | Hospital | [facility] | Conversion | | | 2016 | Encounter | MEDICAL CENTER | Transaction, | | | | | OUTPATIENT | Provider Unknown | | | | | PROCEDURES [address] | [phone] | | | | | [address] | | | | | | [place], [place] | | | | | | [address] | | | | | | [phone] | | | +--------+ + + + [...] + + + | Blood Pressure | 136/80 | 10/01/2015 1:46 PM | | | | | PDT | | + + + + + | Pulse | 51 | 10/01/2015 1:46 PM | | | | | PDT | | + + + + + | Temperature | 36.7 C (98 F) | 10/01/2015 1:46 PM | | | | | PDT | | + + + + + | Respiratory Rate | 18 | 10/01/2015 1:46 PM | | | | | PDT [...]
--- OUTSIDE RECORDS SUMMARY | ~2019-02-06 | XMS | Encounter Summary ---
Demographics + + + | Address | [address] | | | [place] [address] | + + + | Home Phone | | + + + | Preferred Language | Unknown | + + + | Marital Status | | + + + | Yazidi Affiliation | Unknown | + + + | Race | Unknown | + + + | Ethnic Group | Unknown | + + + Author + + + | Author | [facility] | | | and [place] | + + + | Organization | [facility] | | | [...] Team Providers + +------+ + | Care Behavior Therapist Name | Role | Phone | + +------+ + | No, Physician | PCP | Unavailable | + +------+ + Encounter Details +--------+ + + + + | Date | Type | Department | Care Team | Description | +--------+ + + + + | 12/01/ | Hospital | [facility] | Conversion | | | 2018 | Encounter | MEDICAL CENTER | Transaction, | | | | | OUTPATIENT | Provider Unknown | | | | | PROCEDURES [address] | [phone] | | | | | [address] | | | | | | [place] | | | | | | [address] | | | | | | [phone] | | | +--------+ + + + [...] + + + | Blood Pressure | 149/95 | 12/01/2017 2:15 PM | | | | | PDT | | + + + + + | Pulse | 60 | 12/01/2017 2:15 PM | | | | | PDT | | + + + + + | Temperature | 36.5 C (97.7 F) | 12/01/2017 2:15 PM | | | | | PDT | | + + + + + | Respiratory Rate | 16 | 12/01/2017 2:15 PM | | | | | PDT [...]
--- OUTSIDE RECORDS SUMMARY | ~2019-02-06 | XMS | Encounter Summary ---
Demographics + + + | Address | [address] | | | [place] [address] | + + + | Home Phone | | + + + | Preferred Language | Unknown | + + + | Marital Status | | + + + | Restoration Affiliation | Unknown | + + + | Race | Unknown | + + + | Ethnic Group | Unknown | + + + Author + + + | Author | [facility] | | | and [place] | + + + | Organization | [facility] | | | and [...] Team Providers + +------+ + | Care Screwhead Stoner And Polisher Name | Role | Phone | + +------+ + PCP | Unavailable | + +------+ + Encounter Details +--------+ + + + + | Date | Type | Department | Care Team | Description | +--------+ + + + + | 12/05/ | Hospital | [facility] | Conversion | | | 2017 | Encounter | MEDICAL CENTER | Transaction, | | | | | OUTPATIENT | Provider Unknown | | | | | PROCEDURES [address] | [phone] | | | | | [address] | | | | | | [place], [place] | | | | | | [address] | | | | | | [phone] | | | +--------+ + + + [...] + + + | Blood Pressure | 125/80 | 12/05/2016 12:47 PM | | | | | PDT | | + + + + + | Pulse | 70 | 12/05/2016 12:47 PM | | | | | PDT | | + + + + + | Temperature | 36.9 C (98.5 F) | 12/05/2016 12:47 PM | | | | | PDT | | + + + + + | Respiratory Rate | 16 | 12/05/2016 12:47 PM | | | | | PDT [...] Progress Notes Conversion Transaction, Provider Unknown - 12/05/2016 12:18 PM PDTFormatting of this note m ight be different from the original. Nurse Progress Note by Syeda Beverly RN at 108 Author: Syeda Beverly RN Service: (none) Author Type: Registered Nurse Filed: 12/05/16 1220 Date of Service: 12/05/161217 Status: Signed Fiberglass Dowel Drawing Operator: Syeda Beverly RN (Registered Nurse) Patient present in OPP today for medtronic pump refill. She expressed concerns about a rel ative that lives next door who calls her names and demands money. She said she does not wan t us to intervene at this time but would like a note made in her chart. docume nted in this encounter Plan of Treatment Not on filedocumented as of this encounter Visit Diagnoses Not on filedocumented in this encounter"
--- OUTSIDE RECORDS SUMMARY | ~2019-02-06 | XMS | Encounter Summary ---
Demographics + + + | Address | [address] | | | [place] [address] | + + + | Home Phone [...] Team Providers + +------+ + | Care Supervisor Veneer Name | Role | Phone | + +------+ + PCP | Unavailable | + +------+ + Encounter Details +--------+ + + + + | Date | Type | Department | Care Team | Description | +--------+ + + + + | 09/18/ | Hospital | [facility] | Conversion | | | 2016 | Encounter | MEDICAL CENTER | Transaction, | | | | | OUTPATIENT | Provider Unknown | | | | | PROCEDURES [address] | [phone] | | | | | [address] | | | | | | [place], [place] | | | | | | [address] | | | | | | [phone] | | | +--------+ + + + [...]
--- OUTSIDE RECORDS SUMMARY | ~2019-02-06 | XMS | Clinical Summary ---
Demographics + + + | Address | [address] | | | [place] [address] | + + + | Home Phone | | + + + | Preferred Language | Unknown | + + + | Marital Status | Single | + + + | Christian Affiliation | Unknown | + + + | Race | Unknown | + + + | Ethnic Group | Unknown | + + + Author + + + | Author | [facility] (Historical as of | | | 09-25-18) | + + + | Organization | [facility] (Historical as of | | | 09-25-18) [...] Team Providers + +------+ + | Care Maintenance Engineer Name | Role | Phone | [...] +------+-------+ + | MEDICARE | MEDICA | [id number] | | | [address] | | | RE | | | | [place] [address] | | | IP-OP | | | | | + +--------+ +------+-------+ + | MEDICAID | [place] | [id number] | | | [address] | | | [place] | | | | [place] | | | [place] | | | | [address] | | | LIGHTING ENGINEER | | | | | + +--------+ [...] GAY | al/Fam | | 1955 | [phone] | [place], | | | [place]ca | | | 1988 | [place] [address] | + +--------+ +--------+ + +
--- OUTSIDE RECORDS SUMMARY | ~2019-02-06 | XMS | Encounter Summary ---
Demographics + + + | Address | [address] | | | [place] [address] | + + + | Home Phone | | + + + | Preferred Language | Unknown | + + + | Marital Status | | + + + | Alevism Affiliation | Unknown | + + + | Race | Unknown | + + + | Ethnic Group | Unknown | + + + Author + + + | Author | [facility] | | | and [place] | + + + | Organization | [facility] | | | and [...] Team Providers + +------+ + | Care Administrative Manager Name | Role | Phone | + +------+ + PCP | Unavailable | + +------+ + Encounter Details +--------+ + + + + | Date | Type | Department | Care Team | Description | +--------+ + + + + | 05/27/ | Hospital | [facility] | Conversion | Back pain, | | 2017 | Encounter | CONVERSION [address]P [address] | Transaction, | unspecified back | | | | [address] | Provider Unknown | location, | | | | [place], [place] | [phone] | unspecified back | | | | [address] | (Fax) | pain laterality, | | [...] | Procedure Note | + + | Heamnt Medley - 09/23/2018 5:08 AM PDT This [...]
--- OUTSIDE RECORDS SUMMARY | ~2019-02-06 | XMS | Encounter Summary ---
Demographics + + + | Address | [address] | | | [place] [address] | + + + | Home Phone [...] Team Providers + +------+ + | Care Yarder Puncher Name | Role | Phone | + +------+ + | No, Physician | PCP | Unavailable | + +------+ + Encounter Details +--------+ + + + + | Date | Type | Department | Care Team | Description | +--------+ + + + + | 06/22/ | Hospital | [facility] | Conversion | | | 2019 | Encounter | MEDICAL CENTER | Transaction, | | | | | OUTPATIENT | Provider Unknown | | | | | PROCEDURES [address] | [phone] | | | | | [address] | | | | | | [place] | | | | | | [address] | | | | | | [phone] | | | +--------+ + + + [...]
--- OUTSIDE RECORDS SUMMARY | ~2019-02-06 | XMS | Encounter Summary ---
Demographics + + + | Address | [address] | | | [place] [address] | + + + | Home Phone | | + + + | Preferred Language | Unknown | + + + | Marital Status | | + + + | Shinto Affiliation | Unknown | + + + [...] Team Providers + +------+ + | Care Print And Pattern Designer Name | Role | Phone | + +------+ + PCP | Unavailable | + +------+ + Encounter Details +--------+ + + + + | Date | Type | Department | Care Team | Description | +--------+ + + + + | 03/06/ | Hospital | [facility] | Conversion | | | 2018 | Encounter | MEDICAL CENTER | Transaction, | | | | | OUTPATIENT | Provider Unknown | | | | | PROCEDURES [address] | [phone] | | | | | [address] | | | | | | [place], [place] | | | | | | [address] | | | | | | [phone] | | | +--------+ + + + [...]
--- OUTSIDE RECORDS SUMMARY | ~2019-02-06 | XMS | Clinical Summary ---
Demographics + + + | Address | [address] | | | [place] [address] | + + + | Home Phone | | + + + | Preferred Language | Unknown | + + + | Marital Status | | + + + | Mandaen Affiliation | Unknown | + + + | Race | Unknown | + + + | Ethnic Group | Unknown | + + + Author + + + | Author | [facility] | | | and [place] | + + + | Organization | [facility] | | | and [...] Team Providers + +------+ + | Care Explosive Ordnance Disposal Specialist Name | Role | Phone | [...] | | | Absolute | performed at [facility];[address] | LABORATORY | | | | [address];[place], [place] | | | | | | [address] | | | | + + + + + + + + | Specimen | + + | Blood | + + + + + + + | Performing | Address | City/State/Zipcode | Phone Number | | Organization | | | | + + + + + | [facility] | [address] | [place] [address] | [phone] | + + + + + Phosphorus [...] LUKE | | | | performed at [facility];[address] | | LABORATORY | | | | [address];[place] | | | | | | [address] | | | | + + + + + + + + | Specimen | + + | Blood | + + + + + + + | Performing | Address | City/State/Zipcode | Phone Number | | Organization | | | | + + + + + | [facility] | [address] | [place] [address] | [phone] | + + + + + Magnesium [...] Testing | 1.7 - 2.4 mg/dL | [facility] | | | | performed at [facility];[address] | | LABORATORY | | | | [address];[place], [place] | | | | | | [address] | | | | + + + + + + + + | Specimen | + + | Blood | + + + + + + + | Performing | Address | City/State/Zipcode | Phone Number | | Organization | | | | + + + + + | [facility] | [address] | [place] [address] | [phone] | + + + + + Basic [...] | | | | | performed at [facility] | | | | | | [facility];[place], [place] | | | | | | [address] | | | | + + + + + + + + | Specimen | + + | Blood | + + + + + + + | Performing | Address | City/State/Zipcode | Phone Number | | Organization | | | | + + + + + | [facility] | [address] | [place] [address] | [phone] | + + + + + MRI [...] + + | Performing | Address | City/State/[facility] | Phone Number | | Organization [...] | | | Calculated | performed at [facility], [address] | | LABORATORY | | | | [address], | | | | | | [place] [address] | | | | + + + + + + + + | Specimen | + + | Blood | + + + + + + + | Performing | Address | City/State/Zipcode | Phone Number | | Organization | | | | + + + + + | [facility] | [address] | [place] [address] | [phone] | + + + + + Hemoglobin A1C (12/10/2018 4:20 AM PDT) + + + + + + | Component | Value | Ref Range | Performed | Pathologist | | | | | At | Signature | + + + + + + | Hemoglobin | 5.4Comment: HbA1c method | 4.0 - 6.0 % | [facility] | | | A1c | is certified [...] | 108Comment: Estimated | <154 mg/dL | [facility] | | | Average | Average Glucose | | LABORATORY | | | Glucose | calculated from | | | | | | hemoglobin A1c by use of | | | | | | the ADArecommended | | | | | | formula.Testing | | | | | | performed at [facility], [address] | | | | | | [facility], | | | | | | [place] [address] | | | | + + + + + + + + | Specimen | + + | Blood | + + + + + + + | Performing | Address | City/State/Zipcode | Phone Number | | Organization | | | | + + + + + | [facility] | [address] | [place] [address] | [phone] | + + + + + Comprehensive [...] | | | | | performed at [facility];[address] | | | | | | [address];[place], [place] | | | | | | [address] | | | | + + + + + + + + | Specimen | + + | Blood | + + + + + + + | Performing | Address | City/State/Zipcode | Phone Number | | Organization | | | | + + + + + | [facility] | [address] [facility] | [place] [address] | [phone] | + + + + + POC Glucose (12/09/2018 5:56 PM PDT) + + + + + + | Component | Value | Ref Range | Performed | Pathologist | | | | | At | Signature | + + + + + + | Glucose, | 94Comment: Testing | 65 - 99 mg/dL | [facility] | | | POC | performed at [facility];[address] | | LABORATORY | | | | [address];[place], [place] | | | | | | [address] | | | | + + + + + + + + | Specimen | + + | | + + + + + + + | Performing | Address | City/State/Zipcode | Phone Number | | Organization | | | | + + + + + | [facility] | [address] | [place] [address] | [phone] | + + + + + MRSA [...] [facility] | | | | performed at [facility];[address] | | LABORATORY | | | | [address];[place] | | | | | | [address] | | | | + + + + + + + + | Specimen | + + | Tissue - Both | | anterior nares (body | | structure) | + + + + + + + | Performing | Address | City/State/Zipcode | Phone Number | | Organization | | | | + + + + + | [facility] | [address] | [place] [address] | [phone] | + + + + + from [...] +--------+ +---------+--------+ | MEDICARE | MEDICA | [id number] | | [phone] | | Medica | | | RE | | [phone]-Pr | 5 | | re | | | PART A | | esent | | | | | | AND B | | | | | | + +--------+ +--------+ +---------+--------+ | MEDICAID [place] | MEDICA | [id number] | 12/09/ | [phone] | | Medica [...] | | | [address] (Home) | [place] [address] | + +--------+ +--------+ + + | Jessica Deutsch | Person | Self [birth year] | [address] | | Gay | al/Fam | | 1956 | [phone] | [place], | | | [place] | | | [address] (Home) | [place] [address] | + +--------+ +--------+ + + Advance Directives + + + + + | Type | Date Recorded | Patient | Explanation | | | | Drop Hammer Mechanic | | + + + + + | Power of | | | | | Hvac Designer | | | | + + + [...]
--- OUTSIDE RECORDS SUMMARY | ~2019-02-06 | XMS | Encounter Summary ---
Demographics + + + | Address | [address] | | | [place] [address] | + + + | Home Phone | | + + + | Preferred Language | Unknown | + + + | Marital Status | | + + + | Druze Affiliation | Unknown | + + + | Race | Unknown | + + + | Ethnic Group | Unknown | + + + Author + + + | Author | [facility] | | | and [place] | + + + | Organization | [facility] | | [...] Team Providers + +------+ + | Care Punch Press Operator Name | Role | Phone | + +------+ + | No, Physician | PCP | Unavailable | + +------+ + Encounter Details +--------+ + + + + | Date | Type | Department | Care Team | Description | +--------+ + + + + | 03/02/ | Hospital | [facility] | Conversion | | | 2019 | Encounter | MEDICAL CENTER | Transaction, | | | | | OUTPATIENT | Provider Unknown | | | | | PROCEDURES [address] | [phone] | | | | | [address] | | | | | | [place] | | | | | | [address] | | | | | | [phone] | | | +--------+ + + + [...]
--- OUTSIDE RECORDS SUMMARY | ~2019-02-06 | XMS | Encounter Summary ---
Demographics + + + | Address | [address] | | | [place] [address] | + + + | Home Phone | | + + + | Preferred Language | Unknown | + + + | Marital Status | | + + + | Anabaptism Affiliation | Unknown | + + + [...] Team Providers + +------+ + | Care Psychotherapist Social Worker Name | Role | Phone | + [...] Required | | tPA in diff | OB NURSE [address] | | | | | | fac w/n last | [address] | | | | | | 24 hr bef | [place], [place] | | | | | | adm to crnt | [address] | | | | | | fac History | Phone: | | | | | | of cervical | [phone] | | | | | | spinal | Fax: | | | | | | arthrodesis | [phone] | | | | | | History [...] + + | 12/09/ | Hospital | [facility] | Dale Panda | History of fusion of | | 2019 - | Encounter | MEDICAL CENTER | MD Amparo [address] | cervical spine | | | | INTENSIVE CARE UNIT | BLVD [place], [place] | (Primary Dx); Acute | | 12/11/ | | [address] | [id number] | CVA (cerebrovascular | | 2019 | | [place], [place] | | accident) (HCC); | | | | [address] | | Chronic hepatitis C | | | | [phone] | | without hepatic coma | | [...] TyrelljessicakendallCe ARNP - 12/11/2018 10:13 AM PDT [facility] Service: Pancake Professional Discharge Summary Jessica Deutsch 63 y.o. Date of Admission: 12/09/2018 Date of Discharge: 12/11/2018 Treatment Team: hCristen Langley MD ADMITTING DIAGNOSES Present on Admission: [...] pain pump), current smoker who presented to [facility] due to a several day history [...] at 1645. Patient was transferred to [facility] ICU via lifeflight for neurology [...] MANDIBLE RECONSTRUCTION NECK SURGERY 10/1989-05/1993 C fusion [facility] OTHER SURGICAL HISTORY HARDWARE PRESENT OTHER SURGICAL [...] protrudes midline. Motor testing reveals4/5 strength RUE/RLE;5/5 LUE/LLE.Consumer Credit Counselor so mewhat weaker on R with slight [...] Tirado MD [address] [place] [address] Schedule an appointment as soon as possible [...] Instructions Instructions Ce Steele ARNP - 12/11/2018 Ogvs-rn-Tbad Checking Your Blood Pressure Date Last Reviewed: 06/06/201519995430-0474 [employer]. [address] [place] [address]. All righ ts reserved. This information is [...] take medicines that contain heart stimulants, including szbf-lic-xzvvoiw medicines . Check for warnings about high [...] you go to a restaurant. ? The [place] [employer] (AHA) says the "ideal" amount [...] is greater than 180/110 Date Last Reviewed: 06/06/201519998370-3586 [employer]. [address] [place] [address]. All righ ts reserved. This information is [...] stable, IVs removed, pt dressed. Pt to [facility] lobby with hospital escort to await taxi for ride home. Evin Lyon ARNP - 12/11/2018 1:23 AM PDT [facility] Service: Pancake Professional Progress Note Jessica Rashid Leahhom 63 y.o. [...] pain pump), current smoker who presented to [facility] due to a history of headache [...] at 1645. Patient was transferred to [facility] ICU via lifeflight for neurology [...] as per Neurology for first 24-72 hours PT/OT/ELECTRONICS DEPARTMENT MANAGER; IPR evaluation Deep venous thrombosis and aspiration [...] is managed by Dr. Jaren Amaya in [facility]. -Medications Removed -Cyclobenzaprine -Clonidine -[place] -Hydromorphone -Mirtazapine Alexander. Bakari RPH 12/10/18 Ce Rojas ARNP - 12/10/2018 8:53 AM PDT . [facility] Service: Pancake Professional Progress Note Jessica Gay Lynnhom 63 y.o. Hospital Day: LOS: 1 day Post-Op Day: * No surgery found * Consulting Physicians SUBJECTIVE Patient Summary: From Maria Luisa LIM H&P on 12/09: "The patient is a 63 y.o. female with significant past medical history of HTN, migraine, hepatitis C, chronic pain syndrome (with implanted pain pump), current smoker who presented to [facility] due to a day history of [...] at 1645. Patient was transferred to [facility] ICU via lifeflight for neurology [...] testing reveals 4/5 strength RUE/RLE; 5/5 LUE/LLE. Consumer Credit Counselor somew hat weaker on R with slight [...] of blood pressure. Ana Rosa ntain BP<180/105 PT/OT/ELECTRONICS DEPARTMENT MANAGER; IPR evaluation Deep venous thrombosis and aspiration [...] exclusive of all other procedures. RAPHAEL Flores 12/10/2018 Ade Rdz PT - 12/10/2018 [...] KR | | | | performed at [facility];8 | | LABORATORY | | | | [facility];[place], [place] | | | | | | [address] | | | | + + + + + + + + | Specimen | + + | Blood | + + + + + + + | Performing | Address | City/State/Zipcode | Phone Number | | Organization | | | | + + + + + | [facility] | [address] | [place] [address] | [phone] | + + + + + Magnesium (12/11/2018 4:29 AM PDT) + + + + + + | Component | Value | Ref Range | Performed | Pathologist | | | | | At | Signature | + + + + + + | Magnesium | 1.9Comment: Testing | 1.7 - 2.4 mg/dL | [facility] | | | | performed at [facility];8 | | LABORATORY | | | | [address];[place] | | | | | | [address] | | | | + + + + + + + + | Specimen | + + | Blood | + + + + + + + | Performing | Address | City/State/Zipcode | Phone Number | | Organization | | | | + + + + + | [facility] | [address] | [place] [address] | [phone] | + + + + + CBC [...] Testing | 0.00 - 0.10 | [facility] | | | Absolute | performed at [facility];[address] | K[address]uL | LABORATORY | | | | [address];[place] | | | | | | [address] | | | | + + + + + + + + | Specimen | + + | Blood | + + + + + + + | Performing | Address | City/State/Zipcode | Phone Number | | Organization | | | | + + + + + | [facility] | [address] | [place] [address] | [phone] | + + + + + Basic [...] | | | | | performed at [facility];[address] | | | | | | [address];[place], [place] | | | | | | [address] | | | | + + + + + + + + | Specimen | + + | Blood | + + + + + + + | Performing | Address | City/State/Zipcode | Phone Number | | Organization | | | | + + + + + | [facility] | [address] | [place] [address] | [phone] | + + + + + MRI [...] [facility] | | | | performed at [facility];8 | | LABORATORY | | | | [address];[place], [place] | | | | | | [address] | | | | + + + + + + + + | Specimen | + + | Blood | + + + + + + + | Performing | Address | City/State/Zipcode | Phone Number | | Organization | | | | + + + + + | [facility] | [address] | [place] [address] | [phone] | + + + + + Magnesium (12/10/2018 4:20 AM PDT) + + + + + + | Component | Value | Ref Range | Performed | Pathologist | | | | | At | Signature | + + + + + + | Magnesium | 2.2Comment: Testing | 1.7 - 2.4 mg/dL | [facility] | | | | performed at [facility];[address] | | LABORATORY | | | | [address];[place], [place] | | | | | | [address] | | | | + + + + + + + + | Specimen | + + | Blood | + + + + + + + | Performing | Address | City/State/Zipcode | Phone Number | | Organization | | | | + + + + + | [facility] | [address] | [place] [address] | [phone] | + + + + + Hemoglobin A1C (12/10/2018 4:20 AM PDT) + + + + + + | Component | Value | Ref Range | Performed | Pathologist | | | | | At | Signature | + + + + + + | Hemoglobin | 5.4Comment: HbA1c method | 4.0 - 6.0 % | [facility] | | | A1c | [...] 108Comment: Estimated | <154 mg/dL | [facility] | | | Average | Average Glucose | | LABORATORY | | | Glucose | calculated from | | | | | | hemoglobin A1c by use of | | | | | | the ADArecommended | | | | | | formula.Testing | | | | | | performed at [facility], [address] | | | | | | [facility], | | | | | | [place] [address] | | | | + + + + + + + + | Specimen | + + | Blood | + + + + + + + | Performing | Address | City/State/Zipcode | Phone Number | | Organization | | | | + + + + + | [facility] | [address] | [place] [address] | [phone] | + + + + + CBC [...] | | | Absolute | performed at [facility];[address] | [address] | LABORATORY | | | | [address];[place], [place] | | | | | | [address] | | | | + + + + + + + + | Specimen | + + | Blood | + + + + + + + | Performing | Address | City/State/Zipcode | Phone Number | | Organization | | | | + + + + + | [facility] | [address] | [place] [address] | [phone] | + + + + + Basic [...] >60Comment: GFR <60: | >60 | [facility] | | | GFR | [...] | | | | | | MDRD IDAL traceable | | | | | | equation.Testing | | | | | | performed at [facility];[address] | | | | | | [facility];[place], [place] | | | | | | [address] | | | | + + + + + + + + | Specimen | + + | Blood | + + + + + + + | Performing | Address | City/State/Zipcode | Phone Number | | Organization | | | | + + + + + | [facility] | [address] | [place] [address] | [phone] | + + + + + Lipid [...] | | | Calculated | performed at [facility], [address] | | LABORATORY | | | | [address], | | | | | | [place] [address] | | | | + + + + + + + + | Specimen | + + | Blood | + + + + + + + | Performing | Address | City/State/Zipcode | Phone Number | | Organization | | | | + + + + + | [facility] | [address] | [place] [address] | [phone] | + + + + + Comprehensive [...] | | | | | performed at [facility];[address] | | | | | | [address];[place], [place] | | | | | | [address] | | | | + + + + + + + + | Specimen | + + | Blood | + + + + + + + | Performing | Address | City/State/Zipcode | Phone Number | | Organization | | | | + + + + + | [facility] | [address] | [place] [address] | [phone] | + + + + + Phosphorus (12/09/2018 6:11 PM PDT) + + + + + + | Component | Value | Ref Range | Performed | Pathologist | | | | | At | Signature | + + + + + + | Phosphorus | 4.3Comment: Testing | 2.3 - 4.8 mg/dL | [facility] | | | | performed at [facility];8 | | LABORATORY | | | | [address];[place], [place] | | | | | | [address] | | | | + + + + + + + + | Specimen | + + | Blood | + + + + + + + | Performing | Address | City/State/Zipcode | Phone Number | | Organization | | | | + + + + + | [facility] | [address] | [place] [address] | [phone] | + + + + + Magnesium (12/09/2018 6:11 PM PDT) + + + + + + | Component | Value | Ref Range | Performed | Pathologist | | | | | At | Signature | + + + + + + | Magnesium | 1.8Comment: Testing | 1.7 - 2.4 mg/dL | [facility] | | | | performed at [facility];[address] | | LABORATORY | | | | [address];[place] | | | | | | [address] | | | | + + + + + + + + | Specimen | + + | Blood | + + + + + + + | Performing | Address | City/State/Zipcode | Phone Number | | Organization | | | | + + + + + | [facility] | [address] | [place] [address] | [phone] | + + + + + CBC [...] | | | Absolute | performed at [facility];[address] | K/uL | LABORATORY | | | | [address];[place], [place] | | | | | | [address] | | | | + + + + + + + + | Specimen | + + | Blood | + + + + + + + | Performing | Address | City/State/Zipcode | Phone Number | | Organization | | | | + + + + + | [facility] | [address] | [place] [address] | [phone] | + + + + + POC Glucose (12/09/2018 5:56 PM PDT) + + + + + + | Component | Value | Ref Range | Performed | Pathologist | | | | | At | Signature | + + + + + + | Glucose, | 94Comment: Testing | 65 - 99 mg/dL | [facility] | | | POC | performed at [facility];[address] | | LABORATORY | | | | [address];[place], [place] | | | | | | [address] | | | | + + + + + + + + | Specimen | + + | | + + + + + + + | Performing | Address | City/State/Zipcode | Phone Number | | Organization | | | | + + + + + | [facility] | [address] | [place] [address] | [phone] | + + + + + MRSA [...] [facility] | | | | performed at [facility] | | LABORATORY | | | | [address];[place] | | | | | | [address] | | | | + + + + + + + + | Specimen | + + | Tissue - Both | | anterior nares (body | | structure) | + + + + + + + | Performing | Address | City/State/Zipcode | Phone Number | | Organization | | | | + + + + + | [facility] | [address] | [place] [address] | [phone] | + + + + + documented [...] C (100.4 F), | | | Starting [facility] 12/09/18 at 1731 | | + +---+ | | | + +---+ | acetaminophen (TYLENOL) | | | suppository 650 mg 650 mg, | | | Rectal, EVERY 4 HOURS PRN, Pain, | | | Fever, temperature > or equal to | | | 38.0 C (100.4 F), Starting [facility] | | | 12/09/18 at 1731, [...] | | | | (100.4 F), Starting [facility] 12/09/18 | | | | | [...] | | | | | dose on [facility] 12/09/18 at 2100 | | PM [...] DAILY PRN, Constipation, | | | Starting [facility] 12/09/18 at 1731, If | | [...] | | | | | | Starting [facility] 12/09/18 at 1738, | | | [...]
--- OUTSIDE RECORDS SUMMARY | ~2019-02-06 | XMS | Encounter Summary ---
Demographics + + + | Address | [address] | | | [place] [address] | + + + | Home Phone | | + + + | Preferred Language | Unknown | + + + | Marital Status | | + + + | Evangelical Affiliation | Unknown | + + + | Race | Unknown | + + + | Ethnic Group | Unknown | + + + Author + + + | Author | [facility] | | | and [place] | + + + | Organization | [facility] | | [...] Providers + +------+ + | Care Office Administrative Assistant Name | Role | Phone | + [...] Provider Unknown | | | | | [place], [place] | [phone] | | | | | [address] | | | | | | [phone] | | | +--------+ + + + [...]
--- OUTSIDE RECORDS SUMMARY | ~2019-02-06 | XMS | Encounter Summary ---
Demographics + + + | Address | [address] | | | [place] [address] | + + + | Home Phone | | + + + | Preferred Language | Unknown | + + + | Marital Status | | + + + | Baptist Affiliation | Unknown | + + + | Race | Unknown | + + + | Ethnic Group | Unknown | + + + Author + + + | Author | [facility] | | | and [place] | + + + | Organization | [facility] | | | [...] Team Providers + +------+ + | Care Dishwasher Name | Role | Phone | + [...] Required | | tPA in diff | [address] | | | | | | fac w/n last | [address] | | | | | | 24 hr bef | [place], [place] | | | | | | adm to crnt | [address] | | | | | | fac History | Phone: | | | | | | of cervical | [phone] | | | | | | spinal | Fax: | | | | | | arthrodesis | [phone] | | | | | | History [...] + + | 12/09/ | Hospital | [facility] | Dale Panda | History of fusion of | | 2019 - | Encounter | MEDICAL CENTER | MD Amparo [address] | cervical spine | | | | INTENSIVE CARE UNIT | [address] [place], [place] | (Primary Dx); Acute | | 12/11/ | | [address] | [address] | CVA (cerebrovascular | | 2019 | | [place], [place] | | accident) (HCC); | | | | [address] | | Chronic hepatitis C | | | | [phone] | | without hepatic coma | | [...] TyrelljessicakendallCe ARNP - 12/11/2018 10:13 AM PDT [facility]: Digital Performance Analyst Discharge Summary Jessica Deutsch 63 y.o. Date [...] pain pump), current smoker who presented to [facility] due to a several day history [...] ending at 1645. Patient was transferred to [facility] ICU via lifeflight for neurology and high [...] MANDIBLE RECONSTRUCTION NECK SURGERY 10/1989-05/[address] [facility] OTHER SURGICAL HISTORY HARDWARE PRESENT [...] protrudes midline. 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 [address] [place] [address]. All righ ts reserved. This information is [...] take medicines that contain heart stimulants, including joow-lle-xgslqeo medicines . Check for warnings about high [...] you go to a restaurant. ? The [place] [employer] (AHA) says the "ideal" amount [...] is greater than 180/110 Date Last Reviewed: 06/06/201519993001-0856 [employer]. [address] [place] [address]. All righ ts reserved. This information is [...] stable, IVs removed, pt dressed. Pt to [facility] lobby with hospital escort to await taxi for ride home. Evin Lyon ARNP - 12/11/2018 1:23 AM PDT [facility]: Digital Performance Analyst Progress Note Jessica Rashid Leahhom 63 y.o. [...] pain pump), current smoker who presented to [facility] due to a history of headache [...] ending at 1645. Patient was transferred to [facility] ICU via lifeflight for neurology and high [...] as per Neurology for first 24-72 hours PT/OT/AERIAL ADVERTISER; IPR evaluation Deep venous thrombosis and aspiration [...] is managed by Dr. Jaren Amaya in [facility]. -Medications Removed -Cyclobenzaprine -Clonidine -[place] -Hydromorphone -Mirtazapine Alexander. Bakari RPH 12/10/18 Ce Rojas ARNP - 12/10/2018 8:53 AM PDT . [facility]: Digital Performance Analyst Progress Note Jessica Gay Lynnhom 63 y.o. Hospital Day: LOS: 1 day Post-Op Day: * No surgery found * Consulting Physicians SUBJECTIVE Patient Summary: From Maria Luisa LIM H&P on 12/09: "The patient is a 63 y.o. female with significant past medical history of HTN, migraine, hepatitis C, chronic pain syndrome (with implanted pain pump), current smoker who presented to [facility] due to a day history of [...] ending at 1645. Patient was transferred to [facility] ICU via lifeflight for neurology and high [...] testing reveals 4/5 strength RUE/RLE; 5/5 LUE/LLE. 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 Ana Rosa ntain BP<180/105 PT/OT/AERIAL ADVERTISER; IPR evaluation Deep venous thrombosis and aspiration [...] KR | | | | performed at [facility];8 | | LABORATORY | | | | [facility];[place], [place] | | | | | | [address] | | | | + + + + + + + + | Specimen | + + | Blood | + + + + + + + | Performing | Address | City/State/Zipcode | Phone Number | | Organization | | | | + + + + + | [facility] | [address] | [place] [address] | [phone] | + + + + + Magnesium (12/11/2018 4:29 AM PDT) + + + + + + | Component | Value | Ref Range | Performed | Pathologist | | | | | At | Signature | + + + + + + | Magnesium | 1.9Comment: Testing | 1.7 - 2.4 mg/dL | [facility] | | | | performed at [facility];8 | | LABORATORY | | | | [address];[place] | | | | | | [address] | | | | + + + + + + + + | Specimen | + + | Blood | + + + + + + + | Performing | Address | City/State/Zipcode | Phone Number | | Organization | | | | + + + + + | [facility] | [address] | [place] [address] | [phone] | + + + + + CBC [...] 0.07Comment: Testing | 0.00 - 0.10 | [facility] | | | Absolute | performed at [facility];[address] | K[address]uL | LABORATORY | | | | [address];[place] | | | | | | [address] | | | | + + + + + + + + | Specimen | + + | Blood | + + + + + + + | Performing | Address | City/State/Zipcode | Phone Number | | Organization | | | | + + + + + | [facility] | [address] | [place] [address] | [phone] | + + + + + Basic [...] | | | | | performed at [facility];[address] | | | | | | [address];[place], [place] | | | | | | [address] | | | | + + + + + + + + | Specimen | + + | Blood | + + + + + + + | Performing | Address | City/State/Zipcode | Phone Number | | Organization | | | | + + + + + | [facility] | [address] | [place] [address] | [phone] | + + + + + MRI [...] [facility] | | | | performed at [facility];8 | | LABORATORY | | | | [address];[place], [place] | | | | | | [address] | | | | + + + + + + + + | Specimen | + + | Blood | + + + + + + + | Performing | Address | City/State/Zipcode | Phone Number | | Organization | | | | + + + + + | [facility] | [address] | [place] [address] | [phone] | + + + + + Magnesium (12/10/2018 4:20 AM PDT) + + + + + + | Component | Value | Ref Range | Performed | Pathologist | | | | | At | Signature | + + + + + + | Magnesium | 2.2Comment: Testing | 1.7 - 2.4 mg/dL | [facility] | | | | performed at [facility];[address] | | LABORATORY | | | | [address];[place], [place] | | | | | | [address] | | | | + + + + + + + + | Specimen | + + | Blood | + + + + + + + | Performing | Address | City/State/Zipcode | Phone Number | | Organization | | | | + + + + + | [facility] | [address] | [place] [address] | [phone] | + + + + + Hemoglobin A1C (12/10/2018 4:20 AM PDT) + + + + + + | Component | Value | Ref Range | Performed | Pathologist | | | | | At | Signature | + + + + + + | Hemoglobin | 5.4Comment: HbA1c method | 4.0 - 6.0 % | [facility] | | | A1c | is [...] | 108Comment: Estimated | <154 mg/dL | [facility] | | | Average | Average Glucose | | LABORATORY | | | Glucose | calculated from | | | | | | hemoglobin A1c by use of | | | | | | the ADArecommended | | | | | | formula.Testing | | | | | | performed at [facility], [address] | | | | | | [facility], | | | | | | [place] [address] | | | | + + + + + + + + | Specimen | + + | Blood | + + + + + + + | Performing | Address | City/State/Zipcode | Phone Number | | Organization | | | | + + + + + | [facility] | [address] | [place] [address] | [phone] | + + + + + CBC [...] | | | Absolute | performed at [facility];[address] | K/uL | LABORATORY | | | | [address];[place], [place] | | | | | | [address] | | | | + + + + + + + + | Specimen | + + | Blood | + + + + + + + | Performing | Address | City/State/Zipcode | Phone Number | | Organization | | | | + + + + + | [facility] | [address] | [place] [address] | [phone] | + + + + + Basic [...] | >60Comment: GFR <60: | >60 | [facility] | | | GFR | CHRONIC KIDNEY [...] | | | | | | MDRD IDOH traceable | | | | | | equation.Testing | | | | | | performed at [facility];[address] | | | | | | [facility];[place], [place] | | | | | | [address] | | | | + + + + + + + + | Specimen | + + | Blood | + + + + + + + | Performing | Address | City/State/Zipcode | Phone Number | | Organization | | | | + + + + + | [facility] | [address] | [place] [address] | [phone] | + + + + + Lipid [...] | | | Calculated | performed at [facility], [address] | | LABORATORY | | | | [address], | | | | | | [place] [address] | | | | + + + + + + + + | Specimen | + + | Blood | + + + + + + + | Performing | Address | City/State/Zipcode | Phone Number | | Organization | | | | + + + + + | [facility] | [address] | [place] [address] | [phone] | + + + + + Comprehensive [...] | | | | | performed at [facility];[address] | | | | | | [address];[place], [place] | | | | | | [address] | | | | + + + + + + + + | Specimen | + + | Blood | + + + + + + + | Performing | Address | City/State/Zipcode | Phone Number | | Organization | | | | + + + + + | [facility] | [address] | [place] [address] | [phone] | + + + + + Phosphorus (12/09/2018 6:11 PM PDT) + + + + + + | Component | Value | Ref Range | Performed | Pathologist | | | | | At | Signature | + + + + + + | Phosphorus | 4.3Comment: Testing | 2.3 - 4.8 mg/dL | [facility] | | | | performed at [facility];8 | | LABORATORY | | | | [address];[place], [place] | | | | | | [address] | | | | + + + + + + + + | Specimen | + + | Blood | + + + + + + + | Performing | Address | City/State/Zipcode | Phone Number | | Organization | | | | + + + + + | [facility] | [address] | [place] [address] | [phone] | + + + + + Magnesium (12/09/2018 6:11 PM PDT) + + + + + + | Component | Value | Ref Range | Performed | Pathologist | | | | | At | Signature | + + + + + + | Magnesium | 1.8Comment: Testing | 1.7 - 2.4 mg/dL | [facility] | | | | performed at [facility];[address] | | LABORATORY | | | | [address];[place] | | | | | | [address] | | | | + + + + + + + + | Specimen | + + | Blood | + + + + + + + | Performing | Address | City/State/Zipcode | Phone Number | | Organization | | | | + + + + + | [facility] | [address] | [place] [address] | [phone] | + + + + + CBC [...] | | | Absolute | performed at [facility];[address] | K/uL | LABORATORY | | | | [address];[place], [place] | | | | | | [address] | | | | + + + + + + + + | Specimen | + + | Blood | + + + + + + + | Performing | Address | City/State/Zipcode | Phone Number | | Organization | | | | + + + + + | [facility] | [address] | [place] [address] | [phone] | + + + + + POC Glucose (12/09/2018 5:56 PM PDT) + + + + + + | Component | Value | Ref Range | Performed | Pathologist | | | | | At | Signature | + + + + + + | Glucose, | 94Comment: Testing | 65 - 99 mg/dL | [facility] | | | POC | performed at [facility];[address] | | LABORATORY | | | | [address];[place], [place] | | | | | | [address] | | | | + + + + + + + + | Specimen | + + | | + + + + + + + | Performing | Address | City/State/Zipcode | Phone Number | | Organization | | | | + + + + + | [facility] | [address] | [place] [address] | [phone] | + + + + + MRSA [...] [facility] | | | | performed at [facility] | | LABORATORY | | | | [address];[place] | | | | | | [address] | | | | + + + + + + + + | Specimen | + + | Tissue - Both | | anterior nares (body | | structure) | + + + + + + + | Performing | Address | City/State/Zipcode | Phone Number | | Organization | | | | + + + + + | [facility] | [address] | [place] [address] | [phone] | + + + + + documented [...] C (100.4 F), | | | Starting [facility] 12/09/18 at 1731 | | + +---+ | | | + +---+ | acetaminophen (TYLENOL) | | | suppository 650 mg 650 mg, | | | Rectal, EVERY 4 HOURS PRN, Pain, | | | Fever, temperature > or equal to | | | 38.0 C (100.4 F), Starting [facility] | | | 12/09/18 at 1731, [...] | | | | (100.4 F), Starting [facility] 12/09/18 | | | | | [...] | | | | | dose on [facility] 12/09/18 at 2100 | | PM [...] DAILY PRN, Constipation, | | | Starting [facility] 12/09/18 at 1731, If | | [...] | | | | | | Starting [facility] 12/09/18 at 1738, | | | [...]
--- OUTSIDE RECORDS SUMMARY | ~2019-02-06 | XMS | Encounter Summary ---
Demographics + + + | Address | [address] | | | [place] [address] | + + + | Home Phone | | + + + | Preferred Language | Unknown | + + + | Marital Status | | + + + | Hindu Affiliation | Unknown | + + + [...] Team Providers + +------+ + | Care Hydrological Technical Officer Name | Role | Phone | + +------+ + | No, Physician | PCP | Unavailable | + +------+ + Encounter Details +--------+ + + + + | Date | Type | Department | Care Team | Description | +--------+ + + + + | 12/01/ | Hospital | [facility] | Conversion | | | 2018 | Encounter | MEDICAL CENTER | Transaction, | | | | | OUTPATIENT | Provider Unknown | | | | | PROCEDURES [address] | [phone] | | | | | [address] | | | | | | [place] | | | | | | [address] | | | | | | [phone] | | | +--------+ + + + [...]
--- OUTSIDE RECORDS SUMMARY | ~2019-02-06 | XMS | Encounter Summary ---
Demographics + + + | Address | [address] | | | [place] [address] | + + + | Home Phone | | + + + | Preferred Language | Unknown | + + + | Marital Status | | + + + | Rastafarian Affiliation | Unknown | + + + [...] Team Providers + +------+ + | Care Forestry Worker Name | Role | Phone | + +------+ + | No, Physician | PCP | Unavailable | + +------+ + Encounter Details +--------+ + + + + | Date | Type | Department | Care Team | Description | +--------+ + + + + | 09/01/ | Hospital | [facility] | Conversion | | | 2019 | Encounter | MEDICAL CENTER | Transaction, | | | | | OUTPATIENT | Provider Unknown | | | | | PROCEDURES [address] | [phone] | | | | | [address] | | | | | | [place] | | | | | | [address] | | | | | | [phone] | | | +--------+ + + + [...]
--- OUTSIDE RECORDS SUMMARY | ~2019-02-06 | XMS | Encounter Summary ---
Demographics + + + | Address | [address] | | | [place] [address] | + + + | Home Phone | | + + + | Preferred Language | Unknown | + + + | Marital Status | | + + + | Mandaen Affiliation | Unknown | + + + | Race | Unknown | + + + | Ethnic Group | Unknown | + + + Author + + + | Author | [facility] | | | and [place] | + + + | Organization | [facility] | | | [...] Team Providers + +------+ + | Care Medical Researcher Name | Role | Phone | + +------+ + PCP | Unavailable | + +------+ + Encounter Details +--------+ + + + + | Date | Type | Department | Care Team | Description | +--------+ + + + + | 09/30/ | Hospital | [facility] | Conversion | | | 2016 | Encounter | MEDICAL CENTER | Transaction, | | | | | OUTPATIENT | Provider Unknown | | | | | PROCEDURES [address] | [phone] | | | | | [address] | | | | | | [place], [place] | | | | | | [address] | | | | | | [phone] | | | +--------+ + + + [...]
--- OUTSIDE RECORDS SUMMARY | ~2019-02-06 | XMS | Encounter Summary ---
Demographics + + + | Address | [address] | | | [place] [address] | + + + | Home Phone | | + + + | Preferred Language | Unknown | + + + | Marital Status | | + + + | Hindu Affiliation | Unknown | + + + | Race | Unknown | + + + | Ethnic Group | Unknown | + + + Author + + + | Author | [facility] | | | and [place] | + + + | Organization | [facility] | | | [...] Team Providers + +------+ + | Care Clinical Data Research Name | Role | Phone | + [...] Provider Unknown | | | | | [place], [place] | [phone] | | | | | [address] | | | | | | [phone] | | | +--------+ + + + [...]
--- OUTSIDE RECORDS SUMMARY | ~2019-02-06 | XMS | Encounter Summary ---
Demographics + + + | Address | [address] | | | [place] [address] | + + + | Home Phone [...] Providers + +------+ + | Care Supervisor Cell Room Name | Role | Phone | + [...] Provider Unknown | | | | | [place], [place] | [phone] | | | | | [address] | | | | | | [phone] | | | +--------+ + + + [...]
--- OUTSIDE RECORDS SUMMARY | ~2019-02-06 | XMS | Encounter Summary ---
Demographics + + + | Address | [address] | | | [place] [address] | + + + | Home Phone | | + + + | Preferred Language | Unknown | + + + | Marital Status | | + + + | Restorationism Affiliation | Unknown | + + + | Race | Unknown | + + + | Ethnic Group | Unknown | + + + Author + + + | Author | [facility] | | | and [place] | + + + | Organization | [facility] | | | [...] Team Providers + +------+ + | Care Corporate Lawyer Name | Role | Phone | + +------+ + PCP | Unavailable | + +------+ + Encounter Details +--------+ + + + + | Date | Type | Department | Care Team | Description | +--------+ + + + + | 12/05/ | Hospital | [facility] | Conversion | | | 2017 | Encounter | MEDICAL CENTER | Transaction, | | | | | OUTPATIENT | Provider Unknown | | | | | PROCEDURES [address] | [phone] | | | | | [address] | | | | | | [place], [place] | | | | | | [address] | | | | | | [phone] | | | +--------+ + + + [...] 1220 Date of Service: 12/05/161217 Status: Signed Returned Goods Repairer: Syeda Beverly RN (Registered Nurse) Patient present [...]
--- OUTSIDE RECORDS SUMMARY | ~2019-02-06 | XMS | Encounter Summary ---
Demographics + + + | Address | [address] | | | [place] [address] | + + + | Home Phone | | + + + | Preferred Language | Unknown | + + + | Marital Status | | + + + | Druze Affiliation | Unknown | + + + | Race | Unknown | + + + | Ethnic Group | Unknown | + + + Author + + + | Author | [facility] | | | and [place] | + + + | Organization | [facility] | | | and [place] | + + + | Address | Unknown | + + + | Phone | Unavailable | + + + Support + + +---------+ + | Name | Relationship | Address | Phone | + + +---------+ + | Pepewise | ECON | Unknown | | | Residential | | | | | Treatment Home | | | | + + +---------+ + Care Team Providers + +------+ + | Care Food Service Cashier Name | Role | Phone | + +------+ + | Ben Tirado MD | PCP | | + +------+ + Reason for Visit + + + | Reason | Comments | + + + | Appointment | issue with pump | + + + Encounter Details +--------+ + + + + | Date | Type | Department | Care Team | Description | +--------+ + + + + | 01/25/ | Telephone | [facility] | Beto Reyes, | Appointment (issue | | 2019 | | INTERVENTIONAL PAIN | [address] | with pump ) | | | | [address] | [address] | | | | | [address], | [place] [address] | | | | | [place] [address] | [phone] | | | | | [phone] | | | +--------+ + + + [...] + + documented as of this encounter Functional Status + + + [...]
--- OUTSIDE RECORDS SUMMARY | ~2019-02-06 | XMS | Encounter Summary ---
Demographics + + + | Address | [address] | | | [place] [address] | + + + | Home Phone | | + + + | Preferred Language | Unknown | + + + | Marital Status | | + + + | Rastafari Affiliation | Unknown | + + + [...] Team Providers + +------+ + | Care Cloud Systems Administrator Name | Role | Phone | + +------+ + PCP | Unavailable | + +------+ + Encounter Details +--------+ + + + + | Date | Type | Department | Care Team | Description | +--------+ + + + + | 09/01/ | Hospital | [facility] | Conversion | | | 2017 | Encounter | MEDICAL CENTER | Transaction, | | | | | OUTPATIENT | Provider Unknown | | | | | PROCEDURES [address] | [phone] | | | | | [address] | | | | | | [place], [place] | | | | | | [address] | | | | | | [phone] | | | +--------+ + + + [...]
--- OUTSIDE RECORDS SUMMARY | ~2019-02-06 | XMS | Encounter Summary ---
Demographics + + + | Address | [address] | | | [place] [address] | + + + | Home Phone | | + + + | Preferred Language | Unknown | + + + | Marital Status | | + + + | Yarsani Affiliation | Unknown | + + + | Race | Unknown | + + + | Ethnic Group | Unknown | + + + Author + + + | Author | [facility] | | | and [place] | + + + | Organization | [facility] | | | [...] Team Providers + +------+ + | Care Can Sealer Name | Role | Phone | + [...] + + | 01/25/ | Telephone | [facility] | Beto Reyes, | Appointment (issue | | 2019 | | INTERVENTIONAL PAIN | [address] | with pump ) | | | | [address] | [address] | | | | | [address], | [place] [address] | | | | | [place] [address] | [phone] | | | | | [phone] | | | +--------+ + + + [...]
--- OUTSIDE RECORDS SUMMARY | ~2019-02-06 | XMS | Encounter Summary ---
Demographics + + + | Address | [address] | | | [place] [address] | + + + | Home Phone [...] Team Providers + +------+ + | Care Kalsominer Name | Role | Phone | + [...] Provider Unknown | | | | | [place], [place] | [phone] | | | | | [address] | | | | | | [phone] | | | +--------+ + + + [...]
--- OUTSIDE RECORDS SUMMARY | ~2019-02-06 | XMS | Encounter Summary ---
Demographics + + + | Address | [address] | | | [place] [address] | + + + | Home Phone | | + + + | Preferred Language | Unknown | + + + | Marital Status | | + + + | Church Affiliation | Unknown | + + + | Race | Unknown | + + + | Ethnic Group | Unknown | + + + Author + + + | Author | [facility] | | | and [place] | + + + | Organization | [facility] | | | [...] Team Providers + +------+ + | Care Side Panel Padder Name | Role | Phone | + [...] Provider Unknown | | | | | [place], [place] | [phone] | | | | | [address] | | | | | | [phone] | | | +--------+ + + + [...]
--- OUTSIDE RECORDS SUMMARY | ~2019-02-06 | XMS | Encounter Summary ---
Demographics + + + | Address | [address] | | | [place] [address] | + + + | Home Phone [...] Team Providers + +------+ + | Care Mental Health Therapist Name | Role | Phone | + +------+ + PCP | Unavailable | + +------+ + Encounter Details +--------+ + + + + | Date | Type | Department | Care Team | Description | +--------+ + + + + | 05/27/ | Hospital | [facility] | Conversion | Back pain, | | 2017 | Encounter | CONVERSION [address] | Transaction, | unspecified back | | | | [address] | Provider Unknown | location, | | | | [place], [place] | [phone] | unspecified back | | | | [address] | (Fax) | pain laterality, | | [...]
--- OUTSIDE RECORDS SUMMARY | ~2019-02-06 | XMS | Encounter Summary ---
Demographics + + + | Address | [address] | | | [place] [address] | + + + | Home Phone | | + + + | Preferred Language | Unknown | + + + | Marital Status | | + + + | Latter Day Affiliation | Unknown | + + + | Race | Unknown | + + + | Ethnic Group | Unknown | + + + Author + + + | Author | [facility] | | | and [place] | + + + | Organization | [facility] | | [...] Team Providers + +------+ + | Care Electrician Crane Maintenance Name | Role | Phone | + +------+ + | No, Physician | PCP | Unavailable | + +------+ + Encounter Details +--------+ + + + + | Date | Type | Department | Care Team | Description | +--------+ + + + + | 06/05/ | Hospital | [facility] | Conversion | | | 2018 | Encounter | [facility] | Transaction, | | | | | OUTPATIENT | Provider Unknown | | | | | PROCEDURES [phone] | [phone] | | | | | [address] | | | | | | [place] | | | | | | [phone] | | | | | | [phone] | | | +--------+ + + + [...]
--- OUTSIDE RECORDS SUMMARY | ~2019-02-06 | XMS | Encounter Summary ---
Demographics + + + | Address | [address] | | | [place] [address] | + + + | Home Phone | | + + + | Preferred Language | Unknown | + + + | Marital Status | | + + + | Religion Affiliation | Unknown | + + + | Race | Unknown | + + + | Ethnic Group | Unknown | + + + Author + + + | Author | [facility] | | | and [place] | + + + | Organization | [facility] | | | [...] Team Providers + +------+ + | Care Workforce Services Representative Name | Role | Phone | + +------+ + PCP | Unavailable | + +------+ + Encounter Details +--------+ + + + + | Date | Type | Department | Care Team | Description | +--------+ + + + + | 05/27/ | Hospital | [facility] | Conversion | Back pain, | | 2017 | Encounter | CONVERSION DEP [address] | Transaction, | unspecified back | | | | [address] | Provider Unknown | location, | | | | [place], [place] | [phone] | unspecified back | | | | [phone] | (Fax) | pain laterality, | | [...]
[~2019-02-06 10:11] MED LIST changes: +ESCITALOPRAM OX10 MG PO; +SEROQUEL200 MG PO
[2019-02-06] MEDS ORDERED: ZANAFLEX4 MG PO (10:26)
[2019-02-06] MEDS ORDERED: PROPRANOLOL HCL20 MG PO (10:27)
[2019-02-06] MEDS ORDERED: SEROQUEL200 MG PO (10:51)
== END 2019-02-06 11:04 | disposition home or self-care (01) ==
LOC: ED 10:11
DX: R51 Headache (principal); R63.0 Anorexia; F17.200 Nicotine dependence, unspecified, uncomplicated; Z88.0 Allergy status to penicillin; Z91.030 Bee allergy status; Z79.899 Other long term (current) drug therapy
CPT/HCPCS: 99283

== ENCOUNTER 2020-06-30 13:57 | Emergency (ER) | payer MEDICARE, OTHER ==
[~2020-06-30] VITALS: Ht 172.7 cm; Wt 51.0 kg
[~2020-06-30 13:57] MED LIST changes: +NORCO 5-325 TA1 EACH PO; +PROPRANOLOL HCL20 MG PO; +ZANAFLEX4 MG PO
--- NOTE | 2020-07-01 11:32 | EKG ---
[facility] [address] [facility] [place] [address] Signed Normal sinus rhythm Possible Left atrial enlargement Right superior axis deviation Right ventricular hypertrophy Anteroseptal infarct , age undetermined Abnormal ECG When compared with ECG of 09-DEC-2018 15:49, Left posterior fascicular block is no longer present Anteroseptal infarct is now present Borderline criteria for Inferior infarct are no longer present Confirmed by DAVIS HAHN MD ([id number]) on 07/01/2020 11:32:06 AM Electronically Signed By: DAVIS HAHN MD 07/01/20 1132 PATIENT NAME: LEFTY SMITH Electrocardiogram DATE OF : 51 PHYSICIAN: DAVIS HAHN MD REPORT #: [id number] REPORT IS CONFIDENTIAL AND NOT TO BE RELEASED WITHOUT AUTHORIZATION
== END 2020-07-02 12:18 ==
LOC: ED 13:57
DX: F22 Delusional disorders (principal); F17.200 Nicotine dependence, unspecified, uncomplicated; Z88.0 Allergy status to penicillin; Z91.030 Bee allergy status; Z20.822 Contact with and (suspected) exposure to COVID-19
CPT/HCPCS: 80053; 80176; 81001; 84443; 85025; 99284-25; U0003

== ENCOUNTER 2021-01-05 14:38 | Emergency (ER) | payer MEDICARE, OTHER ==
[~2021-01-05] VITALS: Ht 172.7 cm; Wt 51.0 kg
== END 2021-01-05 17:04 | disposition home or self-care (01) ==
LOC: ED 14:38
DX: R53.1 Weakness (principal); M54.50 Low back pain, unspecified; M25.561 Pain in right knee; M25.562 Pain in left knee; F17.200 Nicotine dependence, unspecified, uncomplicated; Z88.0 Allergy status to penicillin; Z91.030 Bee allergy status
CPT/HCPCS: 72131; 80053; 81001; 85025; 99285-25; J7030

== ENCOUNTER 2021-01-16 15:08 | Emergency (ER) | payer MEDICARE, OTHER ==
[~2021-01-16] VITALS: Ht 172.7 cm; Wt 59.6 kg
[2021-01-16] MEDS ORDERED: PROPRANOLOL HCL10 MG PO (15:29)
[2021-01-16] MEDS ORDERED: MIRTAZAPINE30 M1 PO (15:30)
[2021-01-16] MEDS ORDERED: DIVALPROEX SOD500 MG PO (15:30)
[2021-01-16] MEDS ORDERED: TRAZODONE HCL150 MG PO (15:30)
[2021-01-16] MEDS ORDERED: HYDROXYZINE PAM25 MG PO (15:30)
[2021-01-16] MEDS ORDERED: LATUDA80 MG PO (15:30)
[2021-01-16] MEDS ORDERED: HYDROCODON-ACE1 EA10 PO (16:16)
== END 2021-01-16 16:55 | disposition home or self-care (01) ==
LOC: ED 15:08
DX: S52.502A Unspecified fracture of the lower end of left radius, initial encounter for closed fracture (principal); W18.30XA Fall on same level, unspecified, initial encounter; F17.200 Nicotine dependence, unspecified, uncomplicated; Z88.0 Allergy status to penicillin; Z91.030 Bee allergy status; Z79.899 Other long term (current) drug therapy
CPT/HCPCS: 29125; 73110; 99283-25

== ENCOUNTER 2021-01-21 09:00 | Emergency (ER) | payer MEDICARE, OTHER ==
[~2021-01-21] VITALS: Ht 172.7 cm; Wt 55.5 kg
[~2021-01-21 09:00] MED LIST changes: +DIVALPROEX SOD500 MG PO; +HYDROXYZINE PAM25 MG PO; +LATUDA80 MG PO; +MIRTAZAPINE30 M1 PO; +PROPRANOLOL HCL10 MG PO; +TRAZODONE HCL150 MG PO
--- NOTE | 2021-01-23 19:42 | EKG ---
[facility] [address] [facility] [place] [address] Signed Normal sinus rhythm Right atrial enlargement Rightward axis Incomplete right bundle branch block ST \T\ Marked T wave abnormality, consider anterolateral ischemia Prolonged QT Abnormal ECG When compared with ECG of 18-JAN-2021 14:29, Criteria for Septal infarct are no longer present Confirmed by WHIT MICHAELS MD ([id number]) on 01/23/2021 7:42:03 PM Electronically Signed By: WHIT MICHAELS MD 01/23/211941 PATIENT NAME: LEFTY SMITH Electrocardiogram DATE OF : 51 PHYSICIAN: WHIT MICHAELS MD REPORT #: [id number] REPORT IS CONFIDENTIAL AND NOT TO BE RELEASED WITHOUT AUTHORIZATION
== END 2021-01-21 12:34 | disposition home or self-care (01) ==
LOC: ED 09:00
DX: R94.31 Abnormal electrocardiogram [ECG] [EKG] (principal); F17.200 Nicotine dependence, unspecified, uncomplicated; Z88.0 Allergy status to penicillin; Z91.030 Bee allergy status; Z79.899 Other long term (current) drug therapy
CPT/HCPCS: 71045; 80053; 84484; 85025; 93005; 93010; 93306; 96374; 99285-25; J1170

== ENCOUNTER 2022-02-20 11:07 | Emergency (ER) | payer MEDICARE, OTHER ==
[~2022-02-20] VITALS: Ht 172.7 cm; Wt 60.8 kg
[2022-02-20] MEDS ORDERED: LIDODERM1 EACH TOP (12:20)
[2022-02-20] MEDS ORDERED: HYDROCODON-ACE1 EA10 PO (12:20)
== END 2022-02-20 13:14 | disposition home or self-care (01) ==
LOC: ED 11:07
DX: M54.2 Cervicalgia (principal); F17.200 Nicotine dependence, unspecified, uncomplicated; Z88.0 Allergy status to penicillin; Z91.030 Bee allergy status
CPT/HCPCS: 96372; 99283; J1885

== ENCOUNTER 2022-07-15 10:56 | Emergency (ER) | payer MEDICARE, OTHER ==
[~2022-07-15] VITALS: Ht 172.7 cm; Wt 56.0 kg
[~2022-07-15 10:56] MED LIST changes: +LIDODERM1 EACH TOP
[2022-07-15] MEDS ORDERED: AUSTEDO6 MG PO (12:33)
[2022-07-15] MEDS ORDERED: MIRTAZAPINE30 M1 PO (12:34)
[2022-07-15] MEDS ORDERED: DIVALPROEX SOD500 MG PO (12:34)
[2022-07-15] MEDS ORDERED: HYDROXYZINE PAM50 MG PO (12:34)
[2022-07-16 07:24] VITALS: BP 113/81
== END 2022-07-16 07:13 ==
LOC: ED 10:56
DX: F20.9 Schizophrenia, unspecified (principal); F17.200 Nicotine dependence, unspecified, uncomplicated; Z88.0 Allergy status to penicillin; Z91.030 Bee allergy status; Z79.899 Other long term (current) drug therapy; Z20.822 Contact with and (suspected) exposure to COVID-19
CPT/HCPCS: 36415; 73110; 84443; 85025; G0480; U0003

== ENCOUNTER 2022-11-25 16:31 | Emergency (ER) | payer MEDICARE, OTHER ==
[~2022-11-25] VITALS: Ht 172.7 cm; Wt 63.5 kg
[~2022-11-25 16:31] MED LIST changes: +AUSTEDO6 MG PO; +HYDROXYZINE PAM50 MG PO; +RISPERIDONE1 MG PO; +VITAMIN D350 MCG PO
[2022-11-25 17:07] LABS: BASOPHILS 0.9 % (0-2); EOSINOPHILS 3.7 % (0-6); HEMATOCRIT 44.7 % (35.0-50.0); HEMOGLOBIN 15.1 g/dL (12.0-18.0); LYMPHOCYTES 45.1 % (24-44); MCH 31.6 (27-36); MCHC 33.8 g/dl (30-36); MCV 93.3 fl (81-99); MONOCYTES 6.9 % (0-12); NEUTROPHILS 43.4 % (39-80); PLATELET COUNT 250 K/uL (140-440); RBC 4.79 M/ul (4.3-5.7)
[2022-11-25 17:31] LABS: ACETAMINOPHEN 9 ug/mL (10-30); ALBUMIN 3.6 g/dL (3.4-5.0); ALBUMIN/GLOBULIN RATIO 1.09 (1.1-2.4); ALCOHOL, MEDICAL <3 ng/dL (<3); ALKALINE PHOSPHATASE 104 U/L (46-116); ALT (SGPT) 33 U/L (14-59); ANION GAP 14.4 (7-21); AST (SGOT) 31 U/L (15-37); BILIRUBIN, TOTAL 0.4 ng/dL (0.2-1.0); BUN/CREATININE RATIO 6.17 (6.0-28.6); CALCIUM 8.9 mg/dL (8.5-10.1); CARBON DIOXIDE 23 mmol/L (21-32); CHLORIDE 103 mmol/L (98-107); CREATININE, SERUM 0.81 mg/dL (0.55-1.02); GLOMERULAR FILTRATION RATE,EST 79 mL/min (>60); POTASSIUM 3.4 mmol/L (3.5-5.1); PROTEIN, TOTAL 6.9 g/dL (6.4-8.2); SALICYLATE 2.7 mg/dL (2.8-20.0); TSH, 3RD GENERATION 1.312 uIU/mL (0.358-3.740); UREA NITROGEN 5 mg/dL (7-18)
[2022-11-25 19:06] LABS: BILIRUBIN, URINE NEGATIVE (negative); BLOOD/HGB, URINE NEGATIVE (Negative); KETONE, URINE NEGATIVE (Negative); LEUK ESTERASE, URINE NEGATIVE (negative); NITRITE, URINE NEGATIVE (negative)
[2022-11-25 19:20] LABS: AMPHETAMINES, URINE NEGATIVE (NEGATIVE); BARBITURATES, URINE NEGATIVE (NEGATIVE); BENZODIAZEPINE, URINE NEGATIVE (NEGATIVE); BUPRENORPHINE, URINE NEGATIVE (NEGATIVE); CANNABINOID, URINE NEGATIVE (NEGATIVE); COCAINE, URINE NEGATIVE (NEGATIVE); ECSTASY, URINE NEGATIVE (NEGATIVE); FENTANYL, URINE NEGATIVE (NEGATIVE); METHADONE, URINE NEGATIVE (NEGATIVE); OPIATES, URINE NEGATIVE (NEGATIVE); OXYCODONE, URINE NEGATIVE (NEGATIVE); PHENCYCLIDINE, URINE NEGATIVE (NEGATIVE)
[2022-11-25 21:08] LABS: INFLUENZA B NAA NEGATIVE (NEGATIVE); RESPIRATORY SYNCYTIAL VIR NAA NEGATIVE (NEGATIVE)
[2022-11-26 00:03] LABS: ACETAMINOPHEN 0 ug/mL (10-30); SALICYLATE 2.6 mg/dL (2.8-20.0)
[2022-11-27 15:29] VITALS: BP 132/79
== END 2022-11-27 15:29 ==
LOC: ED 16:31
PROVIDERS: Emergency Medicine; Family Medicine
DX: F20.9 Schizophrenia, unspecified (principal); F17.200 Nicotine dependence, unspecified, uncomplicated; Z88.0 Allergy status to penicillin; Z91.030 Bee allergy status; Z79.899 Other long term (current) drug therapy; Z20.822 Contact with and (suspected) exposure to COVID-19
CPT/HCPCS: 36415; 80053; 80307; 81003; 84443; 85025; 87502; 99285; A9270; G0480; U0002

== ENCOUNTER 2023-10-02 13:01 | Emergency (ER) | payer MEDICARE, OTHER ==
[~2023-10-02] VITALS: Ht 172.7 cm; Wt 62.0 kg
[2023-10-02] MEDS ORDERED: ACETAMINOPHEN 500 MG TAB PO ONE (13:15)
[2023-10-02] MEDS ORDERED: KETOROLAC TROMETHAMINE 30 MG/ML VIAL IM ONE (14:45)
[2023-10-02 18:00] VITALS: BP 154/93
== END 2023-10-02 18:00 | disposition home or self-care (01) ==
LOC: ED 13:01
DX: S63.014A Dislocation of distal radioulnar joint of right wrist, initial encounter (principal); W18.39XA Other fall on same level, initial encounter; F17.200 Nicotine dependence, unspecified, uncomplicated; Z88.0 Allergy status to penicillin; Z91.030 Bee allergy status; Z79.899 Other long term (current) drug therapy
CPT/HCPCS: 73090; 73110; 96372; 99283-25; A9270; J1885

== ENCOUNTER 2023-11-27 07:27 | Inpatient (IN) | payer MEDICARE, OTHER ==
[~2023-11-27] VITALS: Ht 172.7 cm; Wt 60.5 kg
[2023-11-27] MEDS ORDERED: DIVALPROEX SOD500 MG PO (07:42)
[2023-11-27] MEDS ORDERED: AMANTADINE100 MG PO (07:42)
[2023-11-27] MEDS ORDERED: OLANZAPINE10 MG PO (07:42)
[2023-11-27] MEDS ORDERED: DIVALPROEX SOD250 MG PO (07:43)
[2023-11-27] MEDS ORDERED: RISPERIDONE1 MG PO (07:43)
[2023-11-27 07:49] LABS: HEMOGLOBIN 15.6 g/dL (12.0-18.0); RDW 14.6 (10.5-15.0)
[2023-11-27 07:52] LABS: BASOPHILS 0.2 % (0-2); EOSINOPHILS 0.7 % (0-6); HEMATOCRIT 44.6 % (35.0-50.0); LYMPHOCYTES 15.3 % (24-44); MCH 31.9 (27-36); MCV 91.2 fl (81-99); MONOCYTES 13.1 % (0-12); NEUTROPHILS 70.7 % (39-80); PLATELET COUNT 205 K/uL (140-440); RBC 4.89 M/ul (4.3-5.7)
[2023-11-27 08:05] LABS: ALBUMIN 3.6 g/dL (3.4-5.0); ALCOHOL, MEDICAL <3 ng/dL (<3); ALKALINE PHOSPHATASE 97 U/L (46-116); ALT (SGPT) 25 U/L (14-59); ANION GAP 12.9 (7-21); AST (SGOT) 23 U/L (15-37); CALCIUM 9.9 mg/dL (8.5-10.1); CARBON DIOXIDE 29 mmol/L (21-32); CHLORIDE 105 mmol/L (98-107); CREATININE, SERUM 0.84 mg/dL (0.55-1.02); GLOMERULAR FILTRATION RATE,EST 75 mL/min (>60); POTASSIUM 2.9 mmol/L (3.5-5.1); PROTEIN, TOTAL 7.6 g/dL (6.4-8.2); UREA NITROGEN 10 mg/dL (7-18)
[2023-11-27 08:06] LABS: VALPROIC ACID 30 ug/mL (50-100)
[2023-11-27] MEDS ORDERED: POTASSIUM CHLORIDE 10 MEQ/100 ML BAG IV ONE (08:15)
[2023-11-27] MEDS ORDERED: POTASSIUM CHLORIDE 20 MEQ/15 ML CUP PO ONE (08:15)
[2023-11-27 11:40] LABS: BILIRUBIN, URINE POSITIVE (negative); BLOOD/HGB, URINE NEGATIVE (Negative); KETONE, URINE TRACE (Negative); LEUK ESTERASE, URINE NEGATIVE (negative); NITRITE, URINE NEGATIVE (negative)
[2023-11-27] MEDS ORDERED: LACTATED RINGER'S 1,000 ML IV SCH (11:45)
[2023-11-27] MEDS ORDERED: ondansetron HCL 4 MG/2 ML VIAL IV PRN (11:45)
[2023-11-27] MEDS ORDERED: ACETAMINOPHEN 325 MG TAB PO PRN (11:45)
[2023-11-27 11:55] LABS: AMPHETAMINES, UR NEGATIVE (NEGATIVE); BARBITURATES, UR NEGATIVE (NEGATIVE); BENZODIAZEPINES, UR NEGATIVE (NEGATIVE); BUPRENORPHINE,UR NEGATIVE (NEGATIVE); COCAINE, UR NEGATIVE (NEGATIVE); MARIJUANA (THC), UR NEGATIVE (NEGATIVE); MDMA, UR NEGATIVE (NEGATIVE); METHADONE, UR NEGATIVE (NEGATIVE); METHAMPHETAMINE, UR NEGATIVE (NEGATIVE); OPIATES, UR NEGATIVE (NEGATIVE); OXYCODONE, UR NEGATIVE (NEGATIVE); PHENCYCLIDINE, UR NEGATIVE (NEGATIVE); TRICYCLIC ANTIDEPRESSANT, UR NEGATIVE (NEGATIVE)
[2023-11-27 11:57] LABS: MAGNESIUM 1.7 mg/dL (1.8-2.4); PHOSPHORUS, INORGANIC 3.1 mg/dL (2.5-4.9)
[2023-11-27] MEDS ORDERED: PHARMACY RENAL DOSE ADJUSTMENT 1 DOSE MISC PO SCH (12:00)
[2023-11-27] MEDS ORDERED: AUSTEDO9 MG PO (12:44)
[2023-11-27] MEDS ORDERED: TRIHEXYPHENIDYL5 MG PO (12:44)
[2023-11-27] MEDS ORDERED: MIRTAZAPINE30 M1 PO (12:46)
--- NOTE | 2023-11-27 12:46 | NUR ---
RECEIVED REPORT AT BEDSIDE IN ER, PATIENT TRANSPORTED TO ROOM 113 VIA STRETCHER, HANDOFF GIVEN TO PRIMARY RN AT BEDSIDE. PATIENT MOVED INTO BED. DIET ORDER UPDATED TO SOFT/BITE SIZE SHE HAS NO DENTURES/NO TEETH FOR EASE OF EATING. RN NOW AT BEDSIDE WITH PATIENT.
[2023-11-27 12:51] VITALS: BP 149/85
--- NOTE | 2023-11-27 13:18 | EKG ---
[facility] [address] [facility] [place] [address] Signed Sinus rhythm with occasional premature ventricular complexes Possible Left atrial enlargement Right bundle branch block Inferior infarct , age undetermined Abnormal ECG No previous ECGs available Confirmed by Guero Dee MD ([id number]) on 11/27/2023 1:17:54 PM Electronically Signed By: GUERO DEE DO 11/27/23 1318 PATIENT NAME: SARAHLEFTY ERIN Electrocardiogram DATE OF : 51 PHYSICIAN: GUERO DEE DO REPORT #: [id number] REPORT IS CONFIDENTIAL AND NOT TO BE RELEASED WITHOUT AUTHORIZATION
[2023-11-27 13:41] LABS: TSH, 3RD GENERATION 4.008 uIU/mL (0.358-3.740)
--- NOTE | 2023-11-27 14:09 | NUR ---
ADMISSION COMPLETE. FULL ASSESSMENT COMPLETE AND DOCUMENTED IN THE CHART. PATIENT IS ALERT AND ORIENTED TIMES FOUR. TREMORS NOTED THROUGHOUT. PATIENT IS ON ROOM AIR AND LUNG SOUNDS ARE CLEAR BILATERALLY. NO COMPLAINTS OF SOB. CARDIAC WITH NORMAL S1/S2 ON AUSCULTATION. PATIENT WITH A 20 GAUGE IN THE RIGHT HAND. IV FLUSHED WITH 10 ML NORMAL SALINE. IV DRESSING IS CLEAN, DRY, AND INTACT. LR IS INFUSING 75 ML/HR. PATIENT WITH NO TEETH. PATIENT IS ON A REGULAR DIET WITH SOFT AND BITE SIZED PIECES. BOWEL TONES ARE ACTIVE IN ALL FOUR QUADRANTS. LAST BM WAS 11/20/23. PATIENT WITH PAIN RATED 8/10 IN THE NECK, BACK, AND SHOULDERS. PATIENT IS NOT REQUESTING PAIN MEDICATIONS AT THIS TIME. PATIENT WITH SCATTERED SCARS NOTED. PATIENTS IS HARD OF HEARING. PATIENT STATED NO FURTHER NEEDS AT THIS TIME. PATIENT IS SITTING IN BED AND EATING LUNCH. CALL LIGHT AND PERSONAL BELONGINGS ARE WITHIN REACH.
[2023-11-27] MEDS ORDERED: MAGNESIUM SULFATE 2 GM/50 ML BAG IV ONE (14:15)
[2023-11-27 14:18] VITALS: BP 142/87
[2023-11-27 14:20] VITALS: BP 142/87
--- NOTE | 2023-11-27 14:38 | NUR ---
PATIENT IN BED AT THIS TIME. 2 CNAS AND RN IN ROOM TAKING AN ORTHOSTATIC BLOOD PRESSURE. CALL LIGHT WITHIN REACH, NO FURTHER NEEDS AT THIS TIME.
[2023-11-27] MEDS ORDERED: LORazepam 1 MG TAB PO PRN (15:00)
--- NOTE | 2023-11-27 15:24 | NUR ---
PT ASKED TO USE THE RESTROOM. 2 CNAS ASSISTED PT TO THE BED SIDE COMMODE. PT ONLY VOIDED AND IT WAS CHARTED. PT IS BACK IN BED. PT DIDNT NEED ANYTHING ELSE AND CALL LIGHT IS WITHIN REACH.
--- NOTE | 2023-11-27 15:36 | NUR ---
PATIENT IN BED AT THIS TIME. BLACK PICKLER DID HOURLY ROUNDS ON PATIENT. CALL LIGHT WITHIN REACH, NO FURTHER NEEDS AT THIS TIME.
--- NOTE | 2023-11-27 15:37 | NUR ---
2 GRAM MAGNESIUM SULFATE INFUSION STARTED AT THIS TIME. LR IS INFUSING AT 100 ML/HR. PATIENT IS GETTING AN ECHO AT THIS TIME. PATIENT STATED NO FURTHER NEEDS, CALL LIGHT AND PERSONAL BELONGINGS ARE WITHIN REACH.
--- NOTE | 2023-11-27 16:32 | NUR ---
MD NOTIFIED OF PATIENT IN 09/18 PAIN AND THE PATIENT STATING THE TYLENOL WILL NOT HELP. MD NOTIFIED OF PATIENT LAST BM OF 11/20/23. MD STATED HE WOULD PUT ORDERS IN. PATIENT STATED NO FURTHER NEEDS AT THIS TIME. CALL LIGHT AND PERSONAL BELONGINGS ARE WITHIN REACH.
[2023-11-27] MEDS ORDERED: HYDROCODONE/ACETA 5/325 TAB PO PRN (16:45)
--- NOTE | 2023-11-27 16:45 | NUR ---
2 GRAM MAGNESIUM SULFATE INFUSION COMPLETE. PATIENT WITH LR INFUSING AT 100 ML/HR AT THIS TIME. PATIENT REQUESTING PAIN MEDICATION. MD NOTIFIED. PATIENT STATED NO FURTHER NEEDS AT THIS TIME. CALL LIGHT AND PERSONAL BELONGINGS ARE WITHIN REACH.
[2023-11-27] MEDS ORDERED: LIDOCAINE HCL 4% 1 EACH PATCH TD SCH ×2 (17:00)
[2023-11-27 17:05] VITALS: BP 156/93
[2023-11-27 17:06] VITALS: BP 156/93
--- NOTE | 2023-11-27 17:11 | NUR ---
1700 LIDOCAINE PATCH AND PRN PAIN MEDICATION ADMINISTERED AT THIS TIME. LIDOCAINE PATCH IN PLACE ON THE MID BACK. PATIENT RATED PAIN 9/10 IN THE BACK, NECK, AND SHOULDERS. PATIENT WITH TREMORS AND HAVING DIFFICULTY EATING. LYNDA BRODERICK IS HELPING PATIENT EAT. PATIENT VERY THANKFUL FOR THE HELP. VITAL SIGNS TAKEN AND DOCUMENTED IN THE CHART. PATIENT STATED NO FURTHER NEEDS AT THIS TIME. CALL LIGHT AND PERSONAL BELONGINGS ARE WITHIN REACH.
--- NOTE | 2023-11-27 18:28 | NUR ---
PATIENT IS LYING IN BED. PATIENT STATED PAIN IS 8/10 AFTER RECEIVING THE PRN NORCO AND THELIDOCAINE PATCH. PATIENT STATED NO FURTHER NEEDS AT THIS TIME. CALL LIGHT AND PERSONAL BELONGINGS ARE WITHIN REACH.
--- NOTE | 2023-11-27 18:47 | NUR ---
RECEIVED CALL FROM CCU, BODY AND FENDER WORKER CONTINUES TO SHOW JUST ARTIFACTS, NO READING THAT IS ABLE TO BE INTERPRETED. MD NOTIFIED AND ORDER FOR TELEMETRY DISCONTINUED. ORDERS UPDATED.
[2023-11-27] MEDS ORDERED: POLYETHYLENE GLYCOL 3350 1 PACKET PO PRN (19:00)
[2023-11-27 20:39] VITALS: BP 134/77
--- NOTE | 2023-11-27 20:41 | NUR ---
RUBBER STAMP DIE INSPECTOR OBTAINED VITALS. NO NEW I&O AT THIS TIME. PT STATES NO NEEDS AT THIS TIME. CALL LIGHT WITHIN REACH.
[2023-11-27] MEDS ORDERED: LIDOCAINE PATCH REMOVAL 1 EA TD SCH (21:00)
--- NOTE | 2023-11-27 22:30 | NUR ---
PATIENT RESTING QUIELTY IN BED EYES CLOSED, MOVES HANDS OCCASSIONALLY, NO DISTRESS. RESPIRATIONS 18/MIN
--- NOTE | 2023-11-27 23:54 | NUR ---
CALL LIGHT ANSWERED. PT NEEDED TO USE BATHROOM. REGIONAL PROJECT MANAGER 1PA WITH FWW PIVOT TO BSC. PT VOIDED AND WAS ASSISTED BACK TO BED. PT PUMP ALARMING. RN NOTIFED. PT OUTPUT NOTED AND PT STATES NO FURTHER NEEDS AT THIS TIME. CALL LIGHT WITHIN REACH.
[2023-11-28] VITALS (12 sets, daily range): BP systolic 134–152; BP diastolic 77–99
--- NOTE | 2023-11-28 01:24 | NUR ---
PATIENT CALLED TO REQUEST PAIN MEDICATION FOR 10/19 AT BACK/NECK AND SHOULDER, 2 TABS NORCO ADMINISTERED PRN, V/S, ASSESSMENT DONE AND PATIENT UP TO BEDSIDE COMMODE TO VOID, SHE THEN REPORTS SHE WAS UNABLE TO VOID. PATIENT BACK TO BED. CALL LIGHT IN REACH, BED ALARM ON FOR PATIENT SAFETY.
--- NOTE | 2023-11-28 03:26 | NUR ---
CALL LIGHT ANSWERED. PT NEEDED TO USE THE BATHROOM. INFORMATION TECHNOLOGY CONSULTANT 1PA PIVOT WITH FWW TO BSC. PT VOIDED AND INFORMATION TECHNOLOGY CONSULTANT ASSISTED PT BACK TO BED. PT OUTPUT NOTED AND PT STATES NO FURTHER NEEDS AT THIS TIME. CALL LIGHT WITHIN REACH.
--- NOTE | 2023-11-28 05:31 | NUR ---
HARDBOARD PANEL PRINTER OBTAINED VITALS AND I&O. PT STATES NO NEEDS AT THIS TIME. CALL LIGHT WITHIN REACH.
[2023-11-28 05:48] LABS: ANION GAP 7.4 (7-21); BUN/CREATININE RATIO 16.41 (6.0-28.6); CALCIUM 8.5 mg/dL (8.5-10.1); CREATININE, SERUM 0.67 mg/dL (0.55-1.02); POTASSIUM 3.4 mmol/L (3.5-5.1)
--- NOTE | 2023-11-28 06:30 | NUR ---
CALL LIGHT ANSWERED. PT NEEDED TO USE BATHROOM. VEGETABLE VENDOR 1PA WITH FWW PIVOT TO BSC. PT VOIDED AND WAS ASSISTED BACK TO BED. OUTPUT NOTED AND BSC EMPTIED. PT STATES NO FURTHER NEEDS AT THIS TIME. CALL LIGHT WITHIN REACH AND BED ALARM ON.
--- NOTE | 2023-11-28 06:47 | NUR ---
ROUDNING TO CLEAR IV PUMP, PATIENT CURRENTLY UP TO BEDSIDE COMMODE TO VOID WITH SURVEY TECHNICIAN, PATIENT ALERT AND ORIENTED. NO REPORTS OF PAIN OR NAUSEA.
--- NOTE | 2023-11-28 07:08 | NUR ---
REPORT RECEIVED FROM GROCERY DELIVERER RN HASMUKH. PATIENT IS LYING IN BED WITH EYES CLOSED AND RESPIRATIONS ARE EVEN AND UNLABORED. CALL LIGHT AND PERSONAL BELONGINGS ARE WITHIN REACH.
--- NOTE | 2023-11-28 08:26 | NUR ---
PATIENT IS SITTING UPRIGHT IN THE CHAIR WITH BILATERAL LOWER EXTREMITIES ELEVATED. LR IS INFUSING AT 100 ML/HR. PATIENT STATED NO FURTHER NEEDS AT THIS TIME. CALL LIGHT AND PERSONAL BELONGINGS ARE WITHIN REACH.
--- NOTE | 2023-11-28 08:33 | NUR ---
PATIENT IN CHAIR AT THIS TIME. MOTHER SUPERIOR ASSISTED PATIENT TO THE BEDSIDE COMMODE AND THEN PATIENT NEEDED A 2 PERSON TRANSFER TO THE CHAIR. CALL LIGHT WITHIN REACH, NO FURTHER NEEDS AT THIS TIME.
[2023-11-28] MEDS ORDERED: FLU VACC TS2024(65UP)/MF59C/PF 1 EACH SYR IM SCH (09:00)
--- NOTE | 2023-11-28 09:05 | NUR ---
PRN NORCO AND SCHEDULED LIDOCAINE PATCH ADMINISTERED PER THE EMAR. LIDOCAINE PATCH IS PLACE ON THE RIGHT SHOULDER/BACK AREA. PATIENT IS SITTING UPRIGHT IN THE CHAIR WITH THE BILATERAL LOWER EXTREMITIES ELEVATED. BREAKFAST TRAY IS SITTING ON THE TABLE NEXT TO THE PATIENT. FULL ASSESSMENT COMPLETE AND DOCUMENTED IN THE CHART. PATIENT IS ALERT AND ORIENTED TIMES FOUR. PATIENT WITH MODERATE TREMORS NOTED. PATIENT IS ON ROOM AIR AND LUNG SOUNDS ARE CLEAR BILATERALLY. CARDIAC WITH NORMAL S1 AND S2 ON AUSCULTATION. RADIAL AND PEDAL PULSES ARE STRONG BILATERALLY. PATIENT WITH A 20 GAUGE IN THE RIGHT HAND. IV FLUSHED WITH 10 ML NORMAL SALINE. LR IS INFUSING AT 100 ML/HR. IV DRESSING IS CLEAN, DRY, AND INTACT. PATIENT WITH NO TEETH. PATIENT IS ON A REGULAR DIET WITH SOFT AND BITE SIZED TEXTURE. LAST BM WAS 11/27/23. BOWEL TONES ARE ACTIVE IN ALL FOUR QUADRANTS. SKIN INTACT. PATIENT WITH SCATTERED SCARS AND SCATTERED TATTOOS NOTED. PATIENT IS HARD OF HEARING. PATIENT RATED PAIN 9/10 IN THE NECK, BACK, SHOULDERS, AND SIDE OF HEAD. PATIENT STATED NO FURTHER NEEDS AT THIS TIME. CALL LIGHT AND PERSONAL BELONGINGS ARE WITHIN REACH.
[2023-11-28] MEDS ORDERED: POTASSIUM BICARBONATE/CIT AC 20 MEQ TABEF PO ONE (09:30)
--- NOTE | 2023-11-28 10:17 | NUR ---
PATIENT JUST FINISHED USING THE BEDSIDE COMMODE UPON RN ENTERING THE ROOM. PATIENT RATED PAIN 8/10 AFTER THE PRN NORCO AND LIDOCAINE PATCH. EFFER-K DOSE ADMINISTERED PER THE EMAR. PATIENT STATED NO FURTHER NEEDS AT THIS TIME. CALL LIGHT AND PERSONAL BELONGINGS ARE WITHIN REACH.
--- NOTE | 2023-11-28 10:42 | NUR ---
PATIENT IN BED AT THIS TIME. DESIGN COORDINATOR PROVIDED PATIENT WITHI FRESH LINENS. DESIGN COORDINATOR ASSISTED PATIENT IN GETTING BACK TO BED. CALL LIGHT WITHIN REACH, BED ALARM IS ACTIVATED, NO FURTHER NEEDS AT THIS TIME.
--- NOTE | 2023-11-28 11:04 | NUR ---
PATIENT IS LYING IN BED AND WATCHING TV. PATIENT STATED NO FURTHER NEEDS AT THIS TIME. CALL LIGHT AND PERSONAL BELONGINGS ARE WITHIN REACH.
--- NOTE | 2023-11-28 11:08 | NUR ---
PATIENT IN BED AT THIS TIME. RETAIL ASSOCIATE MANAGER BILINGUAL ASSISTED PATIENT IN GETTING TO THE BEDSIDE COMMODE AND THEN BACK TO BED. CALL LIGHT WITHIN REACH, NO FURTHER NEEDS AT THIS TIME.
--- NOTE | 2023-11-28 12:08 | NUR ---
PT USES CALL LIGHT STATING SHE NEEDS TO USE BATHROOM. PT UP TO BSC WITH 1PA. PT HAS BM, ANTHONY AREA CLEANED, NEW DEPENDS IN PLACE. PT BACK TO BED FROM BSC, CALL LIGHT WITHIN REACH.
--- NOTE | 2023-11-28 12:19 | NUR ---
PATIENT IN BED AT THIS TIME. CALL LIGHT WITHIN REACH, NO FURTHER NEEDS AT THIS TIME.
--- NOTE | 2023-11-28 13:13 | NUR ---
PATIENT IS LYING IN BED AND GETTING ASSISTANCE WITH EATING BY RN DUE TO MODERATE TREMORS IN BILATERAL HANDS. VITAL SIGNS AND INTAKE AND OUTPUT VALUES TAKEN AND ARE DOCUMENTED IN THE CHART. PATIENT RATED PAIN 8/10 IN THE NECK, BACK, AND HEAD. PRN NORCO ADMINISTERED AT THIS TIME. IV SITE FLUSHED WITH 10 ML NORMAL SALINE. IV DRESSING IS CLEAN, DRY, AND INTACT. LR IS INFUSING AT 100 ML/HR. PATIENT STATED NO FURTHER NEEDS AT THIS TIME. CALL LIGHT AND PERSONAL BELONGINGS ARE WITHIN REACH.
--- NOTE | 2023-11-28 13:57 | NUR ---
PATIENT IN BED AT THIS TIME. MICRO COMPUTER DATA PROCESSOR ASSISTED PATIENT FROM BED TO BEDSIDE COMMODE AND THEN BACK TO BED. MICRO COMPUTER DATA PROCESSOR CHARTED PATIENTS VOIDINGS ON CHART IN ROOM. CALL LIGHT WITHIN REACH NO FURTHER NEEDS AT THIS TIME.
--- NOTE | 2023-11-28 14:20 | NUR ---
PATIENT IS SITTING UPRIGHT IN THE BED AND WATCHING TV. RESPIRATIONS ARE EVEN AND UNLABORED. CALL LIGHT AND PERSONAL BELONGINGS ARE WITHIN REACH.
--- NOTE | 2023-11-28 16:13 | NUR ---
PATIENT USES CALL LIGHT TO REQUEST ASSISTANCE TO THE BATHROOM. ASSISTED PATIENT TO BEDSIDE COMMODE. PATIENT VOIDED WITHOUT DIFFICULTY. CHANGED SOILED BRIEF. ASSISTED PATIENT BACK TO BED. PATIENT REQUESTED CRANBERRY JUICE, CRANBERRY JUICE PROVIDED. PATIENT DENIES ADDITIONAL NEEDS AT THIS TIME. CALL LIGHT IN REACH.
--- NOTE | 2023-11-28 16:40 | NUR ---
MED REC COMPLETE - MEDS LISTED ARE ACTUAL PHARMACY RECORDS, PT WAS VERY UNCLEAR TO WHICH MEDS SHE TAKES.
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
--- NOTE | 2023-11-28 18:38 | NUR ---
PATIENT AMBULATED TO THE BEDSIDE COMMODE AT THIS TIME. PATIENT ABLE TO VOID LIGHT YELLOW URINE. PATIENT THEN TRANSFERRED TO BED WITH 1PA. PATIENT TOLERATED WELL. ABDOMINAL BINDER IN PLACE. BINDER UP AT THE BREAST/CHEST. PATIENT STATES IT IS COMFORTABLE. PRN NORCO AND ATIVAN ADMINISTERED AT THIS TIME. PATIENT WITH PAIN RATED 8/10 IN THE NECK, BACK, AND SHOULDERS. FALL MATS ARE IN PLACE. PATIENT STATED NO FURTHER NEEDS AT THIS TIME. CALL LIGHT AND PERSONAL BELONGINGS ARE WITHIN REACH.
--- NOTE | 2023-11-28 19:27 | NUR ---
REPORT RECEIVED FROM DAY SHIFT RN. PT LYING IN BED ALERT AND ORIENTED. DENIES NEEDS. WHITE BOARD UPDATED. CALL LIGHT IN REACH. BED ALARM FOR SAFETY.
--- NOTE | 2023-11-28 20:28 | NUR ---
EVENING ASSESSMENT COMPLETE. PT A&O X 4 AT THIS TIME. VS AND I&O OBTAINED. PT UP TO BSC WITH FWW AND SBA. GAIT UNSTEADY. BACK TO BED, LOVE WELL. IV IN RIGHT HAND LEAKING. DC'D WNL. TIP INTACT. NEW IV PLACED IN RIGHT FOREARM X 1 ATTEMPT. PT LOVE WELL. PT DENIES QUESTIONS OR CONCERNS. CALL LIGHT IN REACH.
--- NOTE | 2023-11-28 22:40 | NUR ---
BED ALARM SOUNDING. PT UP TO BSC WITH FWW AND SBA TO VOID. GAIT UNSTEADY. BACK TO BED, LOEV WELL. WARM BLANKET PROVIDED. CALL LIGHT IN REACH. BED ALARM FOR SAFETY.
[2023-11-29] VITALS (9 sets, daily range): BP systolic 126–165; BP diastolic 80–91
--- NOTE | 2023-11-29 01:15 | NUR ---
PT UP WITH SHAREPOINT TRAINER ASSIST TO VOID. SNACK PROVIDED. PT REPORTS SHE "CAN'T SETTLE DOWN" PRN FOR C/O NECK PAIN AND ANXIETY ADMIN PER EMAR. ASSISTED TO REPOSITION IN BED. NO FURTHER NEEDS. BED ALARM IN PLACE. CALL LIGHT IN REACH.
--- NOTE | 2023-11-29 02:44 | NUR ---
PT TO FLOOR WITH ED RN VIA STRETCHER. 4PA SLIDE TRANSFER TO BED. REPORT RECEIVED. PT ALERT AND ORIENTED. NGT TO LIWS WITH SCANT AMOUNT BROWN DRAINAGE. BOWEL TONES ACTIVE. ABD SOFT. PT DENIES PAIN OR NAUSEA. HOB 30 DEGREES. BLOODY DRAINAGE FROM RIGHT NOSTRIL NOTED. FACE CLEANED. TELE PLACED. UROSTOMY PATENT WITH YELLOW URINE, PLACED TO DRAINAGE BAG. IVF INFUSING PER ORDER. PT IN WRIST AND ANKLE RESTRAINTS. GAURDS X 2 IN ROOM. NO FURTHER NEEDS. CALL LIGHT IN REACH.
--- NOTE | 2023-11-29 03:07 | NUR ---
PT RESTING IN BED WITH EYES CLOSED. RESPIRATIONS EVEN. CALL LIGHT IN REACH. BED ALARM IN PLACE.
--- NOTE | 2023-11-29 03:45 | NUR ---
Patient called asking for bathroom assistance. They used the bedside commode and then returned to bed. Bed alarms were reset and no further cares were requested.
[2023-11-29 05:35] LABS: ALBUMIN 2.7 g/dL (3.4-5.0); ALBUMIN/GLOBULIN RATIO 0.87 (1.1-2.4); ANION GAP 9.2 (7-21); BILIRUBIN, TOTAL 0.3 ng/dL (0.2-1.0); CALCIUM 8.8 mg/dL (8.5-10.1); CREATININE, SERUM 0.7 mg/dL (0.55-1.02); MAGNESIUM 1.9 mg/dL (1.8-2.4); POTASSIUM 4.2 mmol/L (3.5-5.1); PROTEIN, TOTAL 5.8 g/dL (6.4-8.2)
--- NOTE | 2023-11-29 05:42 | NUR ---
PT RESTING IN BED WITH EYES CLOSED. RESPIRATIONS EVEN. BED ALARM IN PLACE. CALL LIGHT IN REACH.
--- NOTE | 2023-11-29 06:19 | NUR ---
Patient requested assistance to bedside commode. RN came in to check IV machine beeping. After cares, patient asked for orange juice. After given, no other cares were asked for.
--- NOTE | 2023-11-29 07:06 | NUR ---
REPORT RECEIVED FROM FILTER TENDER JELLY RAFAEL PARKS. PATIENT TRANSFERRED TO THE BEDSIDE COMMODE WITH 1PA AND ABLE TO VOID 400 ML LIGHT YELLOW URINE. PATIENT THEN TRANSFERRED BACK TO BED. PATIENT STATED NO FURTHER NEEDS AT THIS TIME, CALL LIGHT AND PERSONAL BELONGINGS ARE WITHIN REACH.
--- NOTE | 2023-11-29 08:19 | NUR ---
patient in chair after bsc, 1pa fww. patient setup for breakfast, am care completed. patient is very pleasant and feeding herself breakfast. chair alarm on. call light within reach.
--- NOTE | 2023-11-29 08:24 | NUR ---
PATIENT IS SITTING UPRIGHT IN THE CHAIR WITH BILATERAL LOWER EXTREMITIES ELEVATED. PATIENT IS EATING INDEPENDENTLY. PRN NORCO AND SCHEDULED LIDOCAINE PATCH ADMINISTERED PER THE EMAR. PATIENT RATED PAIN 7.5/10 IN THE NECK AND BACK. PATIENT STATED NO FURTHER NEEDS AT THIS TIME. CALL LIGHT AND PERSONAL BELONGINGS ARE WITHIN REACH.
--- NOTE | 2023-11-29 09:17 | NUR ---
CALL TO [facility] TO INITIATE A CONSULT FOR PATIENT.
--- NOTE | 2023-11-29 09:27 | NUR ---
PATIENT IS SITTING UPRIGHT IN THE CHAIR WITH THE BILATERAL LOWER EXTREMITIES ELEVATED. PATIENT IS RESTING WITH EYES CLOSED AND RESPIRATIONS ARE EVEN AND UNLABORED. CALL LIGHT AND PERSONAL BELONGINGS ARE WITHIN REACH.
--- NOTE | 2023-11-29 10:17 | NUR ---
CALL FROM [facility], THEY WILL LIKELY BE IN TOMORROW TO SEE PATIENT. [facility] INDICATED THAT PATIENT HAS MULTIPLE FALLS AT HOME, DIFFICULTY FEEDING SELF OR CARING FOR SELF AND THAT THEY HAVE BEEN LOOKING FOR A SAFE PLACE FOR HER TO LIVE. [facility] INDICATED THAT THEY HAVE BEEN GOING IN WEEKLY AND SETTING UP HER MEDICATIONS FOR HER. PLAN FOR [facility] TO WORK WITH DISCHARGE PLANNING FOR SAFE DISCHARGE PLACEMENT.
--- NOTE | 2023-11-29 10:45 | NUR ---
PATIENT AMBULATED TO THE BEDSIDE COMMODE WITH 1PA AND FWW. PATIENT TOLERATED WELL AND ABLE TO VOID CLEAR YELLOW URINE. ORTHOSTATIC VITAL SIGNS COMPLETE AND DOCUMENTED IN THE CHART. PATIENT IS LYING BACK IN BED AT THIS TIME. PATIENT FULL ASSESSMENT COMPLETE AND DOCUMENTED IN THE CHART. PATIENT IS ALERT AND ORIENTED TIMES FOUR. PATIENT IS ANXIOUS AND CONFUSED. MILD TREMORS NOTED IN BILATERAL HANDS. PATIENT IS ON ROOM AIR AND LUNG SOUNDS ARE CLEAR BILATERALLY IN ALL LUNG MYRICK. CARDIAC WITH NORMAL S1 AND S2 ON AUSCULTATION. RADIAL PULSES ARE STRONG BILATERALLY. PATIENT WITH A 22 GAUGE IN THE RIGHT FOREARM. IV FLUSHED WITH 10 ML NORMAL SALINE AND LR IS INFUSING AT 100 ML/HR. IV DRESSING IS CLEAN, DRY, AND INTACT. PATIENT WITH NO TEETH AND IS ON A REGULAR DIET WITH SOFT AND BITE SIZED TEXTURE. ABDOMINAL BINDER IN PLACE. PATIENT FED HERSELF INDEPENDENTLY. LAST BM WAS 11/29/23. BOWEL TONES ARE ACTIVE IN ALL FOUR QUADRANTS. PATIENT WITH PAIN RATED 8/10 IN THE NECK AND BACK. PATIENT IS NOT REQUESTING PAIN MEDICATION AT THIS TIME. SENSATION INTACT WITH NO COMPLAINTS OF NUMBNESS AND TINGLING. SKIN INTACT WITH SCATTERED SCARS AND SCATTERED BRUISING. PATIENT IS HARD OF HEARING. PATIENT STATED NO FURTHER NEEDS AT THIS TIME. CALL LIGHT AND PERSONAL BELONGINGS ARE WITHIN REACH.
--- NOTE | 2023-11-29 11:29 | NUR ---
PATIENT IS LYING IN BED WITH EYES CLOSED AND RESPIRATIONS ARE EVEN AND UNLABORED. CALL LIGHT AND PERSONAL BELONGINGS ARE WITHIN REACH.
--- NOTE | 2023-11-29 12:44 | NUR ---
PATIENT IS SITTING UPRIGHT IN BED WITH THE HOB ELEVATED. PATIENT WITH EYES CLOSED AND RESPIRATIONS ARE EVEN AND UNLABORED. CALL LIGHT AND PERSONAL BELONGINGS ARE WITHIN REACH.
--- NOTE | 2023-11-29 13:13 | NUR ---
PT USES CALL LIGHT, STATES SHE NEEDS TO USE RESTROOM. PT UP TO BSC WITH FWW AND 1PA. PRIMARY RN TO BEDSIDE AT THIS TIME.
--- NOTE | 2023-11-29 13:21 | NUR ---
INTAKE AND OUTPUT VALUES AND VITAL SIGNS TAKEN AND DOCUMENTED IN THE CHART. PATIENT IS DISCUSSING DISCHARGE PLAN AND NOT LIKING THE THOUGHT OF NOT RETURNING HOME DUE TO NO ASSISTANCE AT HOME. PATIENT IS LYING IN BED AND STATED NO FURTHER NEEDS AT THIS TIME. CALL LIGHT AND PERSONAL BELONGINGS ARE WITHIN REACH.
--- NOTE | 2023-11-29 15:43 | NUR ---
PATIENT IS LYING IN BED AT THIS TIME. PATIENT RATED PAIN 9/10 IN THE NECK, BAKC, AND SHOULDERS. PRN NORCO ADMINISTERED AT THIS TIME. PATIENT STATED NO FURTHER NEEDS, CALL LIGHT AND PERSONAL BELONGINGS ARE WITHIN REACH.
--- NOTE | 2023-11-29 15:56 | NUR ---
PATIENT BED BATH WIPE DOWN COMPLETE AND SHOWER CAP COMPLETE. IV FLUIDS DISCONTINUED. IV FLUSHED WITH 10 ML NORMAL SALINE. IV IS SALINE LCOEKD AND THE IV DRESSING IS CLEAN, DRY, AND INTACT. IV PUMP CLEARED OF INTAKE FLUIDS. PATIENT USED THE BEDSIDE COMMODE AND VOID MINIMAL AMOUNT OF CLEAR YELLOW URINE. PATIENT IS LYING IN BED AND WATCHING TV AT THIS TIME. PATIENT STATED NO FURTHER NEEDS AT THIS TIME. CALL LIGHT AND PERSONAL BELONGINGS ARE WITHIN REACH.
--- NOTE | 2023-11-29 16:36 | NUR ---
PATIENT IS LYING IN BED WITH EYES CLOSED AND RESPIRATIONS ARE EVEN AND UNLABORED. CALL LIGHT AND PERSONAL BELONGINGS ARE WITHIN REACH.
--- NOTE | 2023-11-29 17:43 | NUR ---
PATIENT IS SITTING UPRIGHT IN BED AND WATCHING TV. RESPIRATIONS ARE EVEN AND UNLABORED. CALL LIGHT AND PERSONAL BELONGINGS ARE WITHIN REACH.
--- NOTE | 2023-11-29 19:40 | NUR ---
CALL LIGHT ANSWERED. 1 PA TO BEDSIDE COMMODE USING WALKER. PATIENT VOIDED 200ML YELLOW URINE. CHANGED PULL UPS AND CHUX. PATIENT IS BACK IN BED. PATIENT IS SHAKY. PATIENT DID SELF ANTHONY CARE. CRANBERRY JUICE PROVIDED PER PATIENT. ICE WATER REFRESHED. BED ALARM ON FOR SAFETY. NO OTHER REQUEST AT THIS TIME.
--- NOTE | 2023-11-29 19:42 | NUR ---
REPORT RECEIVED FROM DAY SHIFT RN. PT LYING IN BED ALERT AND ORIENTED. REPORTS NECK/BACK PAIN 10/19. PRN FOR PAIN ADMIN PER EMAR. NO FURTHER NEEDS. CALL LIGHT IN REACH. BED ALARM FOR SAFETY.
--- NOTE | 2023-11-29 20:30 | NUR ---
PT UP TO BSC. BACK TO BED, LOVE WELL. GAIT UNSTEADY. EVENING ASSESSMENT COMPLETE. PT REPORTS PAIN IMPROVED AFTER PRN ADMIN. DENIES DIZZINESS WITH ACTIVITY. NO QUESTIONS OR CONCERNS AT THIS TIME. CALL LIGHT IN REACH. BED ALARM FOR SAFETY.
--- NOTE | 2023-11-29 22:35 | NUR ---
PATIENT CALLED TO USE THE BEDSIDE COMMODE. 1PA USING WALKER. VOIDED 200ML YELLOW URINE. PATIENT STILL SHAKY. DID SELF ANTHONY CARE. PATIENT IS BACK IN BED. NO FURTHER NEEDS EXPRESSED. BED ALARM ON FOR SAFETY.
--- NOTE | 2023-11-29 23:44 | NUR ---
PT UP TO BR WITH FWW AND SBA TO VOID. BACK TO BED, LOVE WELL. PT REPORTS ANXIETY REGARDING DISCHARGE PLAN. PT CONCERNED SHE WILL BE DISCHARGED TOMORROW. REASSURANCE PROVIDED. PT ALSO REPORTS NECK/BACK PAIN 10/19. PRN FOR PAIN AND ANXIETY ADMIN PER EMAR. NO FURTHER NEEDS. BED ALARM FOR SAFETY.
[2023-11-30] VITALS (9 sets, daily range): BP systolic 111–149; BP diastolic 65–85
--- NOTE | 2023-11-30 01:13 | NUR ---
PATIENT WAS UP TO BEDSIDE COMMODE AND VOIDED 100ML. CHANGED CHUX AND PULL UPS. PATIENT IS INCONTINENT OF URINE. PATIENT IS BACK IN BED. ALARM ON FOR SAFETY. NO OTHER NEEDS AT THIS TIME.
--- NOTE | 2023-11-30 01:58 | NUR ---
CALL LIGHT ANSWERED. PT UP TO BSC WITH FWW AND SBA TO VOID 100 ML CLEAR YELLOW URINE. PT ABLE TO DO OWN ANTHONY CARE. BALANCE/TREMORS APPEAR TO BE IMPROVED FROM LAST NIGHT. NO C/O DIZZINESS WITH ACTIVITY. BACK TO BED. NO FURTHER NEEDS. BED ALARM FOR SAFETY. CALL LIGHT IN REACH.
--- NOTE | 2023-11-30 04:53 | NUR ---
PT RESTING IN BED WITH EYES CLOSED. RESPIRATIONS EVEN. CALL LIGHT IN REACH.
[2023-11-30 05:21] LABS: HEMATOCRIT 37.3 % (35.0-50.0); HEMOGLOBIN 12.8 g/dL (12.0-18.0)
[2023-11-30 05:23] LABS: BASOPHILS 1.2 % (0-2); EOSINOPHILS 4.2 % (0-6); LYMPHOCYTES 41.5 % (24-44); MCH 31.9 (27-36); MCHC 34.3 g/dl (30-36); MONOCYTES 12.5 % (0-12); NEUTROPHILS 40.6 % (39-80); PLATELET COUNT 172 K/uL (140-440); RBC 4.01 M/ul (4.3-5.7); RDW 14.8 (10.5-15.0)
--- NOTE | 2023-11-30 05:23 | NUR ---
LAB IN FOR MORNING DRAW. PT UP TO BSC WITH FWW AND SBA TO VOID. PT INCONTINENT OF URINE WELL. CLEAN ATTENDS PROVIDED. PT ABLE TO DO OWN ANTHONY CARE. BACK TO BED, LOVE WELL. REPORTS NECK/BACK PAIN 10/19. PRN FOR PAIN ADMIN PER EMAR. NO FURTHER NEEDS. BED ALARM IN PLACE. CALL LIGHT IN REACH.
[2023-11-30 05:34] LABS: ANION GAP 11.5 (7-21); BUN/CREATININE RATIO 10.38 (6.0-28.6); CALCIUM 8.8 mg/dL (8.5-10.1); CREATININE, SERUM 0.77 mg/dL (0.55-1.02); MAGNESIUM 1.8 mg/dL (1.8-2.4); PHOSPHORUS, INORGANIC 4.5 mg/dL (2.5-4.9); POTASSIUM 4.5 mmol/L (3.5-5.1)
--- NOTE | 2023-11-30 07:21 | NUR ---
Pt report received from RAFAEL Stanley. Pt is awake, A&O x4, resting supine in bed, television on without sound. Pt reports pain in neck that she rates 7 out of 10, hot pack with towel provided.
[2023-11-30] MEDS ORDERED: POLYETHYLENE GLYCOL 3350 1 PACKET PO ONE (07:30)
--- NOTE | 2023-11-30 07:37 | NUR ---
UR CLINICAL REVIEW: 2 MN FOR [facility] INPT CRITERIA MEDICARE INPT 11/27/23 @ 1151 ORDER MATCHES REG NO AUTH REQUIRED PER MEDICARE GUIDELINES DISCHARGE PENDING FURTHER CASE MANAGEMENT ASSESSMENT
--- NOTE | 2023-11-30 07:53 | NUR ---
PT WANTED TO BE UP IN THE CHAIR FOR BREAKFAST. LINENS WHERE CHANGED. PT DIDNT NEED ANYTHING ELSE AND CALL LIGHT IS WITHIN REACH.
--- NOTE | 2023-11-30 09:58 | NUR ---
[employer] insulation worker interior surface in to see pt. [employer] insulation worker interior surface had conversation with OT prior to entering pt's room.
--- NOTE | 2023-11-30 09:59 | NUR ---
Pt was offered to shower this shift, she declined, stating she would rather do a wipe down
--- NOTE | 2023-11-30 11:15 | NUR ---
IN TO SEE PATIENT. BANDAR YEE DENTAL OFFICER WITH [employer] AT THE BEDSIDE. PATIENT STATES SHE CURRENTLY LIVES ALONE IN AN APARTMENT WITH HER CAT. PATIENTS APARTMENT IS ON THE GROUND FLOOR WITH 4 STEPS INSIDE. PATIENT INDICATES SHE HAS A WALKER AND SHOWER CHAIR AT HOME. SHE DOES RECV 5 HOURS PER WEEK FOR HOUSE CLEANING. THE PATIENT STATES AID THAT ASSIST HER WITH CLEANING ALSO ASSISTS HER WITH SHOWERING SHE IS AFRAID OF SHOWING ALONE. PATIENT MEDICATIONS ARE MANAGED BY [employer], WHOM SHE HAS A GREAT RELATIONSHIP WITH. SHE STATES THAT LELANI OR GENE WITH [employer] ASSIST HER WITH SHOPPING AND TRANSPORTATION WHEN NEEDED. PER BANDAR YEE PATIENT HAS AAPLIED FOR [employer] MEDICAID AND IS AWAITING FINANICAL APPROVAL FROM [place]. BANDAR AND THE PATIENT AGREE THAT THIS WILL BE A HUGE BENEFIT TO THE PATIENT RETURNING HOME AND STAY THERE IN THE FUTURE. PATIENT IS AGREEABLE TO SNF PLACEMENT FOR ONGOING REHAB AND WOULD LIKE TO GO TO [facility]. IF NECESSARY SHE WOULD GO TO [place] IF NEEDED. DISCUSSED PAYMENT BY MEDICARE AND SECONDARY INSURANCES IT RELATES TO PLACEMENT. ADVISED PATIENT THAT REFERRAL WILL BE FAXED TO [facility] AND WILL UPDATE HER MELANIE.
--- NOTE | 2023-11-30 12:53 | NUR ---
In with pt for hourly rounding. Pt is resting in bed, supine, hob elevated, watching television. Pt finished her lunch, denies any needs at this time. Tray removed from bedside table and table moved to the side of the bed at pt's request. Side rails up, call light in reach.
--- NOTE | 2023-11-30 13:13 | NUR ---
In with pt in response to call light. Pt requested to use the BSC. 1P, SBA with FWW from bed to BSC. Pt needed some assistance with pulling down her briefs and pulling up the clean pair (x1 unmeasured void in brief), but did not request assistance with wiping. Pt voided 150ml clear yellow urine in to hat. SBA as pt transferred back to bed using FWW. Pt denies further needs at this time. Call light in reach, side rails up x4.
--- NOTE | 2023-11-30 13:51 | NUR ---
PT NOT AVAILABLE FOR VISIT. PROVIDED PRAYER.
[2023-11-30] MEDS ORDERED: LORazepam 0.5 MG TAB PO PRN (16:45)
--- NOTE | 2023-11-30 19:29 | NUR ---
REPORT RECEIVED FROM DAY SHIFT RN. PT LYING IN BED RESTING WITH EYES CLOSED. RESPIRATIONS EVEN. BED ALARM FOR SAFETY. CALL LIGHT IN REACH. WHITE BOARD UPDATED.
[2023-11-30] MEDS ORDERED: DIVALPROEX SODIUM 250 MG TABEC PO SCH (21:00)
[2023-11-30] MEDS ORDERED: MIRTAZAPINE 30 MG TAB PO SCH (21:00)
--- NOTE | 2023-11-30 21:28 | NUR ---
EVENING ASSESSMENT COMPLETE. SCHEDULED MEDS ADMIN PER EMAR. PT REPORTS NECK/BACK PAIN 10/19. PRN FOR PAIN ADMIN PER EMAR. PT UP TO BR WITH FWW AND SBA TO VOID. GAIT SLIGHTLY UNSTEADY. BACK TO BED, LOVE WELL. DENIES DIZZINESS WITH ACTIVITY. VS AND I&O OBTAINED. WARM BLANKET PROVIDED. NO FURTHER NEEDS. BED ALARM FOR SAFETY. CALL LIGHT IN REACH.
--- NOTE | 2023-11-30 22:20 | NUR ---
PATIENT CALL TO USE THE BATHROOM. 1 PA USING WALKER TO BEDSIDE COMMODE. PATIENT DID SELF ANTHONY CARE. CHANGED PULL UP INCONTINENT OF URINE. PATIENT VOIDED APPROXIMATELY 75ML OF YELLOW URINE. PATIENT IS BACK IN BED. NO FURTHER NEEDS VERBALIZED. BED ALARM ON FOR SAFETY.
[2023-12-01] VITALS (7 sets, daily range): BP systolic 120–155; BP diastolic 65–88
--- NOTE | 2023-12-01 01:50 | NUR ---
PT RESTING IN BED WITH EYES CLOSED. RESPIRATIONS EVEN. BED ALARM FOR SAFETY. CALL LIGHT IN REACH.
--- NOTE | 2023-12-01 02:33 | NUR ---
1 PA TO BEDSIDE COMMODE. PATIENT'S PULL UP CHANGED DUE TO INCONTINENT WITH URINE. PATIENT STILL ABLE TO VOID 100ML YELLOW URINE. PATIENT IS BACK IN BED. WARM BLANKET PROVIDED. BED ALARM ON FOR SAFETY.
--- NOTE | 2023-12-01 02:40 | NUR ---
PT UP TO BSC WITH CAN ASSIST. REPORTS NECK/BACK PAIN 10/19. PRN FOR PAIN ADMIN PER EMAR. WARM BLANKET PROVIDED. NO FURTHER NEEDS. BED ALARM IN PLACE. CALL LIGHT IN REACH.
--- NOTE | 2023-12-01 04:58 | NUR ---
PT BACK TO BED FROM BSC. LOVE WELL. REPORTS IMPROVEMENT IN PAIN AFTER PRN FOR PAIN ADMIN. VS AND I&O OBTAINED. NO FURTHER NEEDS. BED ALARM IN PLACE.
[2023-12-01 05:29] LABS: HEMATOCRIT 39.3 % (35.0-50.0); HEMOGLOBIN 13.4 g/dL (12.0-18.0); LYMPHOCYTES 44.3 % (24-44); MCH 31.5 (27-36); MCHC 34.1 g/dl (30-36); MCV 92.4 fl (81-99); MONOCYTES 11.9 % (0-12); NEUTROPHILS 37.8 % (39-80); PLATELET COUNT 192 K/uL (140-440); RBC 4.25 M/ul (4.3-5.7); RDW 14.9 (10.5-15.0)
[2023-12-01 05:43] LABS: ANION GAP 10.4 (7-21); BUN/CREATININE RATIO 11.9 (6.0-28.6); CALCIUM 9.1 mg/dL (8.5-10.1); CREATININE, SERUM 0.84 mg/dL (0.55-1.02); MAGNESIUM 2.1 mg/dL (1.8-2.4); PHOSPHORUS, INORGANIC 3.6 mg/dL (2.5-4.9); POTASSIUM 4.4 mmol/L (3.5-5.1)
--- NOTE | 2023-12-01 07:25 | NUR ---
REPORT RECEIVED FROM NIGHT RN - PT RESTING IN BED, RR EVEN AND UNLABORED. CALL LIGHT IN REACH.
--- NOTE | 2023-12-01 09:43 | NUR ---
ASSESSMENT COMPLETE - PT REPORTS PAIN MEDICATION NEEDS. PT REPORTS MILDLY IMPROVED SYMPTOMS, STATES SHE FEELS UNSTEADY AMBULATING. ASSESSMENT OTHERWISE BENIGN. ABD BINDER IN PLACE. SPIRITUAL CARE CALLED TO REQUEST VISIT FROM THERAPY DOG TO BRIGHTEN PT MOOD.
--- NOTE | 2023-12-01 09:55 | NUR ---
Upon entry to visit with patient today regarding discharge and her Important Message from Medicare, I find Jessica to be setting up in bed and visiting with Pastoral Care, and therapy dog "[place]". Possibility of discharge in the next day or two is discussed with Jessica and she is agreeable to the discharge plan to SNF when the doctor feels she is ready for discharge. Jessica has no questions for me at this time and signs 2nd IMM letter without hesitation. A copy of the signed letter is also provided to the patient.
--- NOTE | 2023-12-01 09:58 | NUR ---
REFERRED BY NURSING STAFF. PT STATED MISSING PETS AT HOME. FAMILY DAY CARE PROVIDER PROVIDED SUPPORTIVE PRESENCE, HOSPITALITY, PRAYER, FACILITATED INTERACTION WITH THERAPY ANIMAL. PT EXPRESSED GRATITUDE, REDUCED ANXIETY.
--- NOTE | 2023-12-01 10:15 | NUR ---
Spoke with Jessica. She denies needs. Pleasant. Agreeable to go to SNF on dc. Chart was faxed to [facility] last night by Marylu. Pt would like to stay in town if possible. I called and spoke with Charley at [facility] and she states they do have beds. They have not reviewed the chart.
--- NOTE | 2023-12-01 10:18 | NUR ---
OCCUPATIONAL SAFETY AND HEALTH MANAGER ASSISTED PATIENT IN MOVING FROM CHAIR TO THE BED. OCCUPATIONAL SAFETY AND HEALTH MANAGER CHARTED VITALS AND I&O'S. CALL LIGHT WITHIN REACH, NO FURTHER NEEDS AT THIS TIME.
--- NOTE | 2023-12-01 11:00 | NUR ---
RN ROUNDING ON PT - REPORTS PAIN MINIMALLY IMPROVED - HEAT PACK PROVIDED.
--- NOTE | 2023-12-01 12:05 | NUR ---
PT UP IN RESTROOM WITH RAFAEL VENTURA DENIES CONCERNS.
--- NOTE | 2023-12-01 12:07 | NUR ---
RN ROUNDING ON PT - UP TO BATHROOM WITH OTHER RN. NO NEEDS IDENTIFIED AT THIS TIME.
--- NOTE | 2023-12-01 13:22 | NUR ---
PT SITTING UP IN BED FINISHED WITH LUNCH - ASLEEP, RR EVEN AND UNLABORED. CALL LIGHT IN REACH.
--- NOTE | 2023-12-01 15:09 | NUR ---
PM ASSESSMENT COMPLETE - PT RESTING IN BED WATCHING TV. REPORTS HEADACHE 9/10 RIGH HEAD/NECK AREA. PRN NORCO AND HEAT PACK PROVIDED. PT STATES SHE IS FOCUSED ON LEARING FROM PHYSICAL THERPAY SO SHE CAN GO HOME. MILD TREMORS NOTED, SEEM TO BE IMPROVING.
--- NOTE | 2023-12-01 16:50 | NUR ---
RN ROUNDING ON PT - HEAT PACK PROVIDED FOR PERSISTANT HEAD/NECK PAIN.
--- NOTE | 2023-12-01 19:15 | NUR ---
PATIENT IN BED AT THIS TIME. VETERANS EMPLOYMENT REPRESENTATIVE CAHRTED VITALS AND I&O'S. CALL LIGHT WITHIN REACH, NO FURTHER NEEDS AT THIS TIME.
--- NOTE | 2023-12-01 19:27 | NUR ---
REPORT RECEIVED FROM DAY SHIFT RN. PT LYING IN BED ALERT AND ORIENTED. DENIES NEEDS. WHITE BOARD UPDATED. CALL LIGHT IN REACH. BED ALARM FOR SAFETY.
--- NOTE | 2023-12-01 20:45 | NUR ---
PT RESTING WITH EYES CLOSED. AWAKENS EASILY. EVENING ASSESSMENT COMPLETE. SCHEDULED MEDS ADMIN PER EMAR. PT REPORTS NECK PAIN 10/19. PRN FOR PAIN ADMIN PER EMAR. UP TO BSC TO VOID WITH NO RESULTS. PT INCONTINENT OF URINE. CLEAN ATTENDS PROVIDED. PT DID OWN ANTHONY CARE. BACK TO BED. GAIT STEADY. VS AND I&O OBTAINED. NO FURTHER NEEDS. BED ALARM FOR SAFETY. CALL LIGHT IN REACH.
--- NOTE | 2023-12-01 21:38 | NUR ---
PATIENT CALLED. ASSISTED TO THE BEDSIDE COMMODE TO VOID 100ML YELLOW URINE. PATIENT IS BACK IN BED. NO FURTHER NEEDS AT THIS TIME. BED ALARM ON FOR SAFETY.
--- NOTE | 2023-12-01 22:57 | NUR ---
PT RESTING IN BED WITH EYES CLOSED. RESPIRATIONS EVEN. CALL LIGHT IN REACH. BED ALARM FOR SAFETY.
--- NOTE | 2023-12-01 23:13 | NUR ---
CALL LIGHT ANSWERED. PT UP TO BSC WITH FWW AND SBA TO VOID. INCONTINENT OF URINE WELL. ANTHONY CARE DONE. NEW ATTENDS PROVIDED. BACK TO BED, GAIT STEADY. NO FURTHER NEEDS. BED ALARM ON. CALL LIGHT IN REACH.
--- NOTE | 2023-12-02 01:15 | NUR ---
CALL LIGHT ANSWERED. PATIENT ASSISTED TO BEDSIDE COMMODE AND BACK TO BED. NO OTHER NEEDS VERBALIZED. BED ALARM ON FOR SAFETY.
--- NOTE | 2023-12-02 02:02 | NUR ---
PT UP TO BSC WITH FWW AND SBA TO VOID. PT ABLE TO DO OWN ANTHONY CARE. GAIT UNSTEADY AT TIMES. TREMORS IMPROVED FROM ADMISSION. BACK TO BED, LOVE WELL. NO FURTHER NEEDS. BED ALARM IN PLACE. CALL LIGHT IN REACH.
--- NOTE | 2023-12-02 03:50 | NUR ---
PT UP TO BSC TO VOID. BACK TO BED, LOVE WELL. REPORTS NECK/HEAD PAIN /. PRN FOR PAIN ADMIN PER EMAR. NO FURTHER NEEDS.
[2023-12-02 05:03] VITALS: BP 151/86
[2023-12-02 05:13] VITALS: BP 151/86
--- NOTE | 2023-12-02 05:13 | NUR ---
PT UP TO BSC TO VOID. BACK TO BED, LOVE WELL. VS AND I&O OBTAINED. NO FURTHER NEEDS.
--- NOTE | 2023-12-02 07:22 | NUR ---
REPORT RECEIVED FROM RAFAEL PARKS. PT WITH EYES OPEN, GREETS THIS RN UPON ENTERING ROOM. PT REQUESTING COFFEE, SUPPLIED. NO OTHER NEEDS AT THIS TIME, CALL LIGHT IN REACH.
--- NOTE | 2023-12-02 08:08 | NUR ---
INITIAL ASSESSMENT AND MORNING MEDICATIONS PER APR COMPLETED. PT SITTING UP IN BED WATCHING TELEVISION. PAIN IN NECK STATED 09/18, WARM PACK AND PRN PAIN MEDICATION PROVIDED. PT AMBULATED WITH CNAs TO BATHROOM PRIOR TO ASSESSMENT, STATED SOME DIZZINESS WHILE IN THE BATHROOM BUT IT PASSED QUICKLY. CURRENTLY REPORTS NO DIZZINESS. ABDOMINAL BINDER IS STILL IN PLACE. BREAKFAST TRAY ARRIVES, TREMOR NOTED TO INCREASE WHEN PT IS OPENING SOME OF HER FOOD ITEMS BUT SHE IS MANAGING THIS WELL. BED ALARM ON, FALL MAT IN PLACE, NO OTHER NEEDS AT THIS TIME, CALL LIGHT IN REACH.
--- NOTE | 2023-12-02 08:11 | NUR ---
PATIENT IN BED AT THIS TIME. DIRECTOR OF SOLUTIONS ARCHITECTURE WENT INTO PATIENT ROOM TO DO PATIENT ROUNDINGS. CALL LIGHT DILMAIN REACH, NO FURTHER NEEDS AT THIS TIME.
--- NOTE | 2023-12-02 08:27 | NUR ---
LINK FABRIC MACHINE OPERATOR ASSISTED PATIENT TO BEDSIDE COMMODE AND THEN TO HER CHAIR. LINK FABRIC MACHINE OPERATOR ALSO PROVIDED PATIENT WITH FRESH LINENS. CALL LIGHT WITHIN REACH, NO FURTHER NEEDS AT THIS TIME.
--- NOTE | 2023-12-02 08:30 | NUR ---
Pt discussed in 829 meeting and will dc today. Updated I received a text from [facility] and they will accept this pt today. He states pt has concerns about her cat. Let him know I called her [employer] worker, Darío Ingram. He has been caring for pts cat and will cont. to do so. I also gave him the pts room number and he will call her this morning. will complete SNF orders. I spoke with charge nurse and pt can dc per taxi to [facility].
[2023-12-02] MEDS ORDERED: HYDROCODON-ACE1 EA10 PO (09:07)
[2023-12-02] MEDS ORDERED: DIVALPROEX SOD250 M1 PO (09:08)
[2023-12-02] MEDS ORDERED: POLYETHYLENE GLYCOL 3350 1 PACKET PO ONE (09:15)
[2023-12-02 09:29] VITALS: BP 170/81
[2023-12-02 09:30] VITALS: BP 170/81
--- NOTE | 2023-12-02 10:00 | NUR ---
Received completed SNF orders from Dr. Jimenez. Faxed face sheet, orders, PASRR, RX, PT notes, and dc summary to [facility]. Staff will call the taxi for this pt. I spoke with Jessica earlier and she denies any needs.
--- NOTE | 2023-12-02 10:14 | NUR ---
[employer] CALLED TO REQUEST CARE RIDE TO [place].
--- NOTE | 2023-12-02 10:15 | NUR ---
REPORT GIVEN TO KOLTON AT [facility]. QUESTIONS ANSWERED.
--- NOTE | 2023-12-02 10:44 | NUR ---
PT ESCORTED TO FRONT OF HOSPITAL IN W/C, ALL BELONGINGS IN HER BELONGINGS BAG INCLUDING PACKET FOR [employer]. PT LOADS INTO TAXI.
--- NOTE | 2023-12-02 10:45 | NUR ---
In to visit with patient regarding discharge plan. Patient is agreeable to discharge back to [facility], her current residence. Patient desires to return to [facility], she is oriented to person and place, but not time, i.e. year. She is oriented to the fact that she resides at [facility], and she is anxious to return home when the doctor is ready to order her discharge.
== END 2023-12-02 10:35 | DRG 312 ==
LOC: ED 07:27 → MS 11:51
PROVIDERS: Emergency Medicine; Student in an Organized Health Care Education/Training Program; ADMIT Student in an Organized Health Care Education/Training Program; ATTEND Student in an Organized Health Care Education/Training Program
DX: I95.2 Hypotension due to drugs (principal); G21.19 Other drug induced secondary parkinsonism; R55 Syncope and collapse; F20.9 Schizophrenia, unspecified; F41.1 Generalized anxiety disorder; E87.6 Hypokalemia; T43.595A Adverse effect of other antipsychotics and neuroleptics, initial encounter; F31.9 Bipolar disorder, unspecified; F41.9 Anxiety disorder, unspecified; E83.42 Hypomagnesemia; Z88.0 Allergy status to penicillin; Z91.030 Bee allergy status; F17.210 Nicotine dependence, cigarettes, uncomplicated
CPT/HCPCS: 36415; 70450; 72125; 80048; 80053; 80164; 80307; 81003; 82553; 83735; 84100; 84439; 84443; 85025; 87040; 93005; 93010; 93306; 97162; 97165; 97530; A9270; A9270-GY; G0480; J3475; J3480; J7121